=== PATIENT | male | born 1950 | race Caucasian/White ===

== ENCOUNTER 2017-05-02 15:30 | Emergency (ER) | payer MEDICARE, OTHER ==
[~2017-05-02] VITALS: Ht 167.6 cm; Wt 101.6 kg
[~2017-05-02 15:30] MED LIST: AMLO10 PO; ASPI81CH PO; ASPI81EC PO; ATOR20 PO; CARV6.25 PO; CEPACOL SORE T1 EACH MM; CYCL10 PO; Colace250 MG PO; DOCU100 PO; HYDACE25S PR; LISI20 PO; LISI5 PO; LISINOPRIL; LORPSEER24 PO; Norco 5-325 Ta1 EACH PO; OMEP20ER PO; OXYACE5T PO; OXYACE7.5T PO; Percocet 5-3251 EACH PO; Prilosec Otc20 MG PO; RANI150; SENN187 PO; VITAMIN D-32000 UNIT PO
[2017-05-02 16:20] LABS: BASOPHILS ABSOLUTE AUTO 0.05 K/mm3 (0.00-0.23); BASOPHILS PERCENT AUTO 1 % (0-2); EOSINOPHILS PERCENT AUTO 1 % (0-6); Hematocrit 44.9 % (37.0-53.0); Hemoglobin 15.1 g/dL (13.5-17.5); IMMATURE GRAN ABSOLUTE AUTO 0.03 K/mm3 (0.00-0.10); IMMATURE GRAN PERCENT AUTO 0 % (0-1); LYMPHOCYTES ABSOLUTE AUTO 1.85 K/mm3 (0.84-5.20); LYMPHOCYTES PERCENT AUTO 27 % (21-46); MONOCYTES ABSOLUTE AUTO 0.67 K/mm3 (0.16-1.47); MONOCYTES PERCENT AUTO 10 % (4-13); Mean Corpuscular HGB 31.9 pg (26.0-34.0); Mean Corpuscular HGB Conc 33.6 g/dL (31.5-36.5); Mean Corpuscular Volume 95 fL (80-100); Mean Platelet Volume 9.4 fL (9.1-12.4); NEUTROPHILS ABSOLUTE AUTO 4.23 K/mm3 (1.96-9.15); NEUTROPHILS PERCENT AUTO 61 % (41-73); Platelet Count 266 K/mm3 (150-400); RDW Coefficient Variation 12.3 % (11.7-14.2); RDW Standard Deviation 43.1 fL (35.1-46.3); Red Blood Cell Count 4.74 M/mm3 (4.30-5.90); White Blood Cell Count 6.93 K/mm3 (4.00-11.30)
[2017-05-02 16:39] LABS: Alanine Aminotransfer (ALT/SGP 50 U/L (12-78); Albumin/Globulin Ratio 1.1 (0.8-1.8); Alk Phos 87 U/L (50-136); Anion Gap 6 mmol/L (6-16); Aspartate Aminotrans (AST/SGOT 30 U/L (12-37); Bilirubin, Total 0.6 mg/dL (0.1-1.0); Blood Urea Nitrogen 17 mg/dL (8-24); Bun/Creatinine Ratio 14.9 (12.0-20.0); CO2, Blood 24 mmol/L (21-32); Calcium, Blood 8.4 mg/dL (8.5-10.1); Chloride, Blood 108 mmol/L (98-108); Creatinine, Blood 1.14 mg/dL (0.60-1.20); Globulin, Blood 3.5 g/dL (2.2-4.0); Glomerular Filtration Rate >60 (60-); Glucose, Blood 124 mg/dL (70-99); Potassium, Blood 3.6 mmol/L (3.5-5.5); Sodium, Blood 138 mmol/L (136-145); Total Protein, Blood 7.5 g/dL (6.4-8.2)
[2017-05-02] MEDS ORDERED: Cortisporin Ear10 M1 LEFTEAR (18:18)
[2017-05-02] MEDS ORDERED: Amoxicillin875 MG PO (20:13)
[2017-05-02] MEDS ORDERED: BONINE25 MG PO (20:13)
== END 2017-05-02 21:02 | disposition home or self-care (01) ==
LOC: ER 15:30
PROVIDERS: Emergency Medicine
DX: H60.92 Unspecified otitis externa, left ear (principal); H66.92 Otitis media, unspecified, left ear; H81.12 Benign paroxysmal vertigo, left ear; I10 Essential (primary) hypertension; K21.9 Gastro-esophageal reflux disease without esophagitis; Z79.899 Other long term (current) drug therapy; Z79.82 Long term (current) use of aspirin; Z90.49 Acquired absence of other specified parts of digestive tract
CPT/HCPCS: 36415; 71046; 80053; 85025; 93005; 93010; 96360; 96361; 99284; J7030

== ENCOUNTER 2017-05-08 08:37 | Emergency (ER) | payer MEDICARE, OTHER ==
[~2017-05-08] VITALS: Ht 165.1 cm; Wt 101.6 kg
[~2017-05-08 08:37] MED LIST changes: +Amoxicillin875 MG PO; +BONINE25 MG PO; +Cortisporin Ear10 M1 LEFTEAR
[2017-05-08 09:52] LABS: BASOPHILS ABSOLUTE AUTO 0.02 K/mm3 (0.00-0.23); BASOPHILS PERCENT AUTO 0 % (0-2); EOSINOPHILS ABSOLUTE AUTO 0.07 K/mm3 (0.00-0.68); EOSINOPHILS PERCENT AUTO 1 % (0-6); Hematocrit 41.8 % (37.0-53.0); Hemoglobin 14.2 g/dL (13.5-17.5); IMMATURE GRAN ABSOLUTE AUTO 0.02 K/mm3 (0.00-0.10); IMMATURE GRAN PERCENT AUTO 0 % (0-1); LYMPHOCYTES ABSOLUTE AUTO 0.52 K/mm3 (0.84-5.20); LYMPHOCYTES PERCENT AUTO 11 % (21-46); MONOCYTES ABSOLUTE AUTO 0.71 K/mm3 (0.16-1.47); MONOCYTES PERCENT AUTO 15 % (4-13); Mean Corpuscular HGB 31.6 pg (26.0-34.0); Mean Corpuscular Volume 93 fL (80-100); Mean Platelet Volume 9.3 fL (9.1-12.4); NEUTROPHILS ABSOLUTE AUTO 3.55 K/mm3 (1.96-9.15); NEUTROPHILS PERCENT AUTO 73 % (41-73); Platelet Count 206 K/mm3 (150-400); RDW Coefficient Variation 12.4 % (11.7-14.2); RDW Standard Deviation 43.1 fL (35.1-46.3); White Blood Cell Count 4.89 K/mm3 (4.00-11.30)
[2017-05-08 10:24] LABS: Alanine Aminotransfer (ALT/SGP 45 U/L (12-78); Albumin, Blood 3.8 g/dL (3.4-5.0); Albumin/Globulin Ratio 1.2 (0.8-1.8); Alk Phos 81 U/L (50-136); Anion Gap 6 mmol/L (6-16); Aspartate Aminotrans (AST/SGOT 28 U/L (12-37); Bilirubin, Total 0.7 mg/dL (0.1-1.0); Blood Urea Nitrogen 14 mg/dL (8-24); Bun/Creatinine Ratio 11.4 (12.0-20.0); CO2, Blood 26 mmol/L (21-32); Calcium, Blood 8.3 mg/dL (8.5-10.1); Chloride, Blood 107 mmol/L (98-108); Creatinine, Blood 1.23 mg/dL (0.60-1.20); Globulin, Blood 3.1 g/dL (2.2-4.0); Glomerular Filtration Rate >60 (60-); Glucose, Blood 130 mg/dL (70-99); Sodium, Blood 139 mmol/L (136-145); Total Protein, Blood 6.9 g/dL (6.4-8.2); Troponin I <0.015 ng/mL (0.000-0.040)
[2017-05-08] MEDS ORDERED: BENZ100A PO (11:06)
== END 2017-05-08 11:15 | disposition home or self-care (01) ==
LOC: ER 08:37
PROVIDERS: Emergency Medicine
DX: J06.9 Acute upper respiratory infection, unspecified (principal); R06.00 Dyspnea, unspecified; I10 Essential (primary) hypertension; Z79.899 Other long term (current) drug therapy; Z79.82 Long term (current) use of aspirin; Z79.2 Long term (current) use of antibiotics
CPT/HCPCS: 36415; 71046; 80053; 83880; 84484; 85025; 93005; 93010; 96361; 96374; 99284; J2405; J7030

== ENCOUNTER 2017-05-11 17:24 | Observation (INO) | payer MEDICARE, OTHER ==
[~2017-05-11] VITALS: Ht 172.7 cm; Wt 93.8 kg
[~2017-05-11 17:24] MED LIST changes: +BENZ100A PO
[2017-05-11 18:15] LABS: Calcium, Ionized (POC) 1.13 mmol/L (1.10-1.46); Chloride (POC) 104 mmol/L (98-108); Creatinine (POC) 1.8 mg/dL (0.8-1.3); Glucose (ISTAT POC) 140 mg/dL (70-99); Hemoglobin (POC) 15.6 g/dL (13.5-17.5); Potassium (POC) 3.1 mmol/L (3.5-5.5); Sodium (POC) 141 mmol/L (135-148); Total CO2 (POC) 23 mmol/L (21-32)
[2017-05-11 18:17] LABS: BASOPHILS ABSOLUTE AUTO 0.01 K/mm3 (0.00-0.23); BASOPHILS PERCENT AUTO 0 % (0-2); EOSINOPHILS ABSOLUTE AUTO 0.02 K/mm3 (0.00-0.68); EOSINOPHILS PERCENT AUTO 1 % (0-6); Hematocrit 44.9 % (37.0-53.0); Hemoglobin 15.5 g/dL (13.5-17.5); IMMATURE GRAN ABSOLUTE AUTO 0.01 K/mm3 (0.00-0.10); IMMATURE GRAN PERCENT AUTO 0 % (0-1); LYMPHOCYTES PERCENT AUTO 29 % (21-46); MONOCYTES ABSOLUTE AUTO 0.34 K/mm3 (0.16-1.47); MONOCYTES PERCENT AUTO 10 % (4-13); Mean Corpuscular HGB 31.8 pg (26.0-34.0); Mean Corpuscular HGB Conc 34.5 g/dL (31.5-36.5); Mean Corpuscular Volume 92 fL (80-100); Mean Platelet Volume 9.4 fL (9.1-12.4); NEUTROPHILS ABSOLUTE AUTO 2.13 K/mm3 (1.96-9.15); NEUTROPHILS PERCENT AUTO 61 % (41-73); Platelet Count 244 K/mm3 (150-400); RDW Coefficient Variation 12.1 % (11.7-14.2); RDW Standard Deviation 41.3 fL (35.1-46.3); Red Blood Cell Count 4.87 M/mm3 (4.30-5.90); White Blood Cell Count 3.51 K/mm3 (4.00-11.30)
[2017-05-11 18:40] LABS: Alanine Aminotransfer (ALT/SGP 39 U/L (12-78); Albumin/Globulin Ratio 1.1 (0.8-1.8); Alk Phos 87 U/L (50-136); Anion Gap 11 mmol/L (6-16); Aspartate Aminotrans (AST/SGOT 33 U/L (12-37); Bilirubin, Total 0.5 mg/dL (0.1-1.0); Blood Urea Nitrogen 21 mg/dL (8-24); Bun/Creatinine Ratio 12.4 (12.0-20.0); CO2, Blood 23 mmol/L (21-32); Calcium, Blood 8.6 mg/dL (8.5-10.1); Chloride, Blood 105 mmol/L (98-108); Creatinine, Blood 1.69 mg/dL (0.60-1.20); Globulin, Blood 3.8 g/dL (2.2-4.0); Glomerular Filtration Rate 43 (60-); Glucose, Blood 137 mg/dL (70-99); Potassium, Blood 3.1 mmol/L (3.5-5.5); Sodium, Blood 139 mmol/L (136-145); Total Protein, Blood 7.8 g/dL (6.4-8.2); Troponin I <0.015 ng/mL (0.000-0.040)
[2017-05-11 18:56] LABS: Influenza A Negative (NEGATIVE); Influenza B Negative (NEGATIVE)
[2017-05-11] MEDS ORDERED: ATOR10 (21:47)
[2017-05-12 02:45] LABS: Albumin, Blood 3.6 g/dL (3.4-5.0); Anion Gap 10 mmol/L (6-16); Blood Urea Nitrogen 19 mg/dL (8-24); Bun/Creatinine Ratio 12.9 (12.0-20.0); CO2, Blood 26 mmol/L (21-32); Chloride, Blood 106 mmol/L (98-108); Creatinine, Blood 1.47 mg/dL (0.60-1.20); Glomerular Filtration Rate 51 (60-); Glucose, Blood 100 mg/dL (70-99); Phosphorus, Blood 2.3 mg/dL (2.5-4.9); Potassium, Blood 3.1 mmol/L (3.5-5.5); Sodium, Blood 142 mmol/L (136-145)
[2017-05-12 04:05] LABS: Source, Urine Clean Catch
[2017-05-12 04:12] LABS: Bilirubin, Urine Neg (Neg); Blood, Urine Neg (Neg); Glucose Qualitative, Urine Neg (Neg); Ketones, Urine Neg (Neg); Leukocyte Esterase, Urine 1+ (Neg); Nitrite, Urine Neg (Neg); Protein, Urine 2+ (Neg); Specific Gravity, Urine 1.025 (1.003-1.022); Urobilinogen, Urine NORM (Normal)
[2017-05-12 04:42] LABS: Appearance, Urine Clear (Clear); Color, Urine Yellow (P-Yellow)
[2017-05-12 04:43] LABS: Bacteria Mod /hpf; Red Blood Cells, Urine 0-2 /hpf (0-2); Squamous Epithelial Cells Few /hpf (Few)
[2017-05-12 04:44] LABS: Hyaline Casts 0-2 /lpf (0-2)
[2017-05-12] MEDS ORDERED: AMLO10 PO (12:08)
[2017-05-12] MEDS ORDERED: AUGMENTIN PO (12:13)
[2017-05-12] MEDS ORDERED: BENZ100A PO (12:13)
[2017-05-12] MEDS ORDERED: DEX (12:18)
[2017-05-12] MEDS ORDERED: ROBITUSSIN DM PO (12:23)
[2017-05-12] MEDS ORDERED: Flonase 0.05% N16 GM (12:23)
== END 2017-05-12 14:27 | disposition home or self-care (01) ==
LOC: ER 17:24 → PCU 17:25 → MEDS 17:25 → PCU 21:30
PROVIDERS: Emergency Medicine; Family Medicine; Physician Assistant
DX: R55 Syncope and collapse (principal); J06.9 Acute upper respiratory infection, unspecified; I10 Essential (primary) hypertension; N17.9 Acute kidney failure, unspecified; E87.6 Hypokalemia; E66.9 Obesity, unspecified; R19.7 Diarrhea, unspecified; I51.7 Cardiomegaly; I77.810 Thoracic aortic ectasia; K21.9 Gastro-esophageal reflux disease without esophagitis; Z79.899 Other long term (current) drug therapy
CPT/HCPCS: 36415; 71046; 80047; 80053; 80069; 81001; 83880; 84484; 85014; 85025; 87086; 87804; 93005; 93010; 93306; 93880; 96360; 96361; 99285; G0378; J3480; J7030

== ENCOUNTER 2017-08-26 17:48 | Inpatient (IN) | payer MEDICARE, OTHER ==
[~2017-08-26] VITALS: Ht 170.2 cm; Wt 103.5 kg
[~2017-08-26 17:48] MED LIST changes: +ATOR10; +AUGMENTIN PO; +DEX; +Flonase 0.05% N16 GM; +ROBITUSSIN DM PO
[2017-08-26 19:43] LABS: BASOPHILS ABSOLUTE AUTO 0.04 K/mm3 (0.00-0.23); BASOPHILS PERCENT AUTO 0 % (0-2); EOSINOPHILS ABSOLUTE AUTO 0.06 K/mm3 (0.00-0.68); EOSINOPHILS PERCENT AUTO 1 % (0-6); Hematocrit 50.4 % (37.0-53.0); Hemoglobin 17.6 g/dL (13.5-17.5); IMMATURE GRAN ABSOLUTE AUTO 0.05 K/mm3 (0.00-0.10); IMMATURE GRAN PERCENT AUTO 0 % (0-1); LYMPHOCYTES PERCENT AUTO 10 % (21-46); MONOCYTES PERCENT AUTO 6 % (4-13); Mean Corpuscular HGB 33.1 pg (26.0-34.0); Mean Corpuscular HGB Conc 34.9 g/dL (31.5-36.5); Mean Corpuscular Volume 95 fL (80-100); Mean Platelet Volume 9.5 fL (9.1-12.4); NEUTROPHILS ABSOLUTE AUTO 10.25 K/mm3 (1.96-9.15); NEUTROPHILS PERCENT AUTO 83 % (41-73); Platelet Count 333 K/mm3 (150-400); RDW Coefficient Variation 12.9 % (11.7-14.2); RDW Standard Deviation 44.8 fL (35.1-46.3); Red Blood Cell Count 5.32 M/mm3 (4.30-5.90)
[2017-08-26 20:02] LABS: Albumin, Blood 4.6 g/dL (3.4-5.0); Albumin/Globulin Ratio 1.2 (0.8-1.8); Bilirubin, Total 1.4 mg/dL (0.1-1.0); Bun/Creatinine Ratio 13.4 (12.0-20.0); Calcium, Blood 9.4 mg/dL (8.5-10.1); Creatinine, Blood 1.86 mg/dL (0.60-1.20); Globulin, Blood 3.8 g/dL (2.2-4.0); Total Protein, Blood 8.4 g/dL (6.4-8.2)
[2017-08-27 04:26] LABS: BASOPHILS ABSOLUTE AUTO 0.04 K/mm3 (0.00-0.23); BASOPHILS PERCENT AUTO 1 % (0-2); EOSINOPHILS ABSOLUTE AUTO 0.04 K/mm3 (0.00-0.68); EOSINOPHILS PERCENT AUTO 1 % (0-6); Hematocrit 42.6 % (37.0-53.0); Hemoglobin 14.4 g/dL (13.5-17.5); IMMATURE GRAN ABSOLUTE AUTO 0.02 K/mm3 (0.00-0.10); IMMATURE GRAN PERCENT AUTO 0 % (0-1); LYMPHOCYTES ABSOLUTE AUTO 1.35 K/mm3 (0.84-5.20); LYMPHOCYTES PERCENT AUTO 16 % (21-46); MONOCYTES ABSOLUTE AUTO 0.64 K/mm3 (0.16-1.47); MONOCYTES PERCENT AUTO 7 % (4-13); Mean Corpuscular HGB 32.9 pg (26.0-34.0); Mean Corpuscular HGB Conc 33.8 g/dL (31.5-36.5); Mean Corpuscular Volume 97 fL (80-100); Mean Platelet Volume 9.2 fL (9.1-12.4); NEUTROPHILS ABSOLUTE AUTO 6.54 K/mm3 (1.96-9.15); NEUTROPHILS PERCENT AUTO 76 % (41-73); Platelet Count 240 K/mm3 (150-400); RDW Standard Deviation 46.6 fL (35.1-46.3); Red Blood Cell Count 4.38 M/mm3 (4.30-5.90); White Blood Cell Count 8.63 K/mm3 (4.00-11.30)
[2017-08-27 04:47] LABS: Albumin, Blood 3.5 g/dL (3.4-5.0); Albumin/Globulin Ratio 1.2 (0.8-1.8); Bilirubin, Total 0.9 mg/dL (0.1-1.0); Creatinine, Blood 1.81 mg/dL (0.60-1.20); Globulin, Blood 2.9 g/dL (2.2-4.0)
[2017-08-27 04:59] LABS: Total Protein, Blood 6.4 g/dL (6.4-8.2)
== END 2017-08-28 11:28 | disposition home or self-care (01) | DRG 392 ==
LOC: ER 17:48 → MEDS 23:29 → ENPENDDIS 08-28 10:00 → MEDS 08-28 11:28
PROVIDERS: Emergency Medicine; Internal Medicine
DX: K52.9 Noninfective gastroenteritis and colitis, unspecified (principal); I12.9 Hypertensive chronic kidney disease with stage 1 through stage 4 chronic kidney disease, or unspecified chronic kidney disease; N18.2 Chronic kidney disease, stage 2 (mild); E78.5 Hyperlipidemia, unspecified; K21.9 Gastro-esophageal reflux disease without esophagitis
CPT/HCPCS: 36415; 74176; 74250; 80053; 83605; 85025; 96361; 96365; 96375; 96376; 99285; J0744; J1650; J2405; J3010; J7030

== ENCOUNTER 2017-11-10 06:57 | Inpatient (IN) | payer MEDICARE, OTHER ==
[~2017-11-10] VITALS: Ht 172.7 cm; Wt 99.5 kg
[2017-11-10] MEDS ORDERED: RANI150EL PO (07:22)
[2017-11-10 07:35] LABS: BASOPHILS ABSOLUTE AUTO 0.03 K/mm3 (0.00-0.23); BASOPHILS PERCENT AUTO 0 % (0-2); EOSINOPHILS ABSOLUTE AUTO 0.03 K/mm3 (0.00-0.68); EOSINOPHILS PERCENT AUTO 0 % (0-6); Hematocrit 51.3 % (37.0-53.0); Hemoglobin 17.2 g/dL (13.5-17.5); IMMATURE GRAN ABSOLUTE AUTO 0.02 K/mm3 (0.00-0.10); IMMATURE GRAN PERCENT AUTO 0 % (0-1); LYMPHOCYTES ABSOLUTE AUTO 1.12 K/mm3 (0.84-5.20); LYMPHOCYTES PERCENT AUTO 11 % (21-46); MONOCYTES ABSOLUTE AUTO 0.53 K/mm3 (0.16-1.47); MONOCYTES PERCENT AUTO 5 % (4-13); Mean Corpuscular HGB Conc 33.5 g/dL (31.5-36.5); Mean Corpuscular Volume 96 fL (80-100); Mean Platelet Volume 9.3 fL (9.1-12.4); NEUTROPHILS ABSOLUTE AUTO 8.28 K/mm3 (1.96-9.15); NEUTROPHILS PERCENT AUTO 83 % (41-73); Platelet Count 339 K/mm3 (150-400); RDW Coefficient Variation 12.4 % (11.7-14.2); RDW Standard Deviation 43.7 fL (35.1-46.3); Red Blood Cell Count 5.37 M/mm3 (4.30-5.90); White Blood Cell Count 10.01 K/mm3 (4.00-11.30)
[2017-11-10 07:55] LABS: Albumin, Blood 4.9 g/dL (3.4-5.0); Albumin/Globulin Ratio 1.3 (0.8-1.8); Calcium, Blood 9.3 mg/dL (8.5-10.1); Creatinine, Blood 2.64 mg/dL (0.60-1.20); Globulin, Blood 3.8 g/dL (2.2-4.0); Potassium, Blood 4.5 mmol/L (3.5-5.5); Total Protein, Blood 8.7 g/dL (6.4-8.2)
[2017-11-10 08:26] LABS: Source, Urine Clean Catch
[2017-11-10 08:50] LABS: Blood, Urine 1+ (Neg); Glucose Qualitative, Urine Neg (Neg); Ketones, Urine 1+ (Neg); Leukocyte Esterase, Urine 1+ (Neg); Nitrite, Urine Neg (Neg); Protein, Urine 3+ (Neg); Urobilinogen, Urine 1+ (Normal)
[2017-11-10 09:09] LABS: Bilirubin, Urine 2+ (Neg)
[2017-11-10 09:13] LABS: Appearance, Urine Hazy (Clear); Bacteria Few /hpf; Color, Urine Amber (P-Yellow); Mucus Mod (0-Heavy); Red Blood Cells, Urine 0-2 /hpf (0-2); Squamous Epithelial Cells Few /hpf (Few)
[2017-11-10 12:54] LABS: Hematocrit 48.7 % (37.0-53.0); Hemoglobin 16.7 g/dL (13.5-17.5); Mean Corpuscular HGB 33.2 pg (26.0-34.0); Mean Corpuscular HGB Conc 34.3 g/dL (31.5-36.5); Mean Corpuscular Volume 97 fL (80-100); Mean Platelet Volume 9.1 fL (9.1-12.4); Platelet Count 301 K/mm3 (150-400); RDW Coefficient Variation 12.5 % (11.7-14.2); RDW Standard Deviation 44.5 fL (35.1-46.3); Red Blood Cell Count 5.03 M/mm3 (4.30-5.90); White Blood Cell Count 11.23 K/mm3 (4.00-11.30)
[2017-11-11 03:53] LABS: BASOPHILS ABSOLUTE AUTO 0.04 K/mm3 (0.00-0.23); BASOPHILS PERCENT AUTO 0 % (0-2); EOSINOPHILS ABSOLUTE AUTO 0.06 K/mm3 (0.00-0.68); EOSINOPHILS PERCENT AUTO 1 % (0-6); Hematocrit 41.9 % (37.0-53.0); Hemoglobin 13.9 g/dL (13.5-17.5); IMMATURE GRAN ABSOLUTE AUTO 0.02 K/mm3 (0.00-0.10); IMMATURE GRAN PERCENT AUTO 0 % (0-1); LYMPHOCYTES ABSOLUTE AUTO 1.34 K/mm3 (0.84-5.20); LYMPHOCYTES PERCENT AUTO 15 % (21-46); MONOCYTES ABSOLUTE AUTO 0.71 K/mm3 (0.16-1.47); MONOCYTES PERCENT AUTO 8 % (4-13); Mean Corpuscular HGB 32.7 pg (26.0-34.0); Mean Corpuscular HGB Conc 33.2 g/dL (31.5-36.5); Mean Corpuscular Volume 99 fL (80-100); NEUTROPHILS ABSOLUTE AUTO 6.85 K/mm3 (1.96-9.15); NEUTROPHILS PERCENT AUTO 76 % (41-73); Platelet Count 230 K/mm3 (150-400); RDW Coefficient Variation 12.5 % (11.7-14.2); RDW Standard Deviation 45.1 fL (35.1-46.3); Red Blood Cell Count 4.25 M/mm3 (4.30-5.90); White Blood Cell Count 9.02 K/mm3 (4.00-11.30)
[2017-11-11 04:16] LABS: Albumin, Blood 3.6 g/dL (3.4-5.0); Bun/Creatinine Ratio 17.5 (12.0-20.0); Calcium, Blood 7.6 mg/dL (8.5-10.1); Creatinine, Blood 1.71 mg/dL (0.60-1.20); Magnesium, Blood 1.9 mg/dL (1.6-2.4); Phosphorus, Blood 2.4 mg/dL (2.5-4.9); Potassium, Blood 4.4 mmol/L (3.5-5.5)
[2017-11-11 04:18] LABS: Albumin/Globulin Ratio 1.2 (0.8-1.8); Globulin, Blood 2.9 g/dL (2.2-4.0)
[2017-11-11 04:46] LABS: Total Protein, Blood 6.5 g/dL (6.4-8.2)
[2017-11-12 05:18] LABS: Hemoglobin 14.5 g/dL (13.5-17.5); Mean Corpuscular HGB 32.8 pg (26.0-34.0); Mean Corpuscular HGB Conc 33.7 g/dL (31.5-36.5); Mean Corpuscular Volume 97 fL (80-100); Mean Platelet Volume 9.3 fL (9.1-12.4); Platelet Count 240 K/mm3 (150-400); RDW Coefficient Variation 11.9 % (11.7-14.2); Red Blood Cell Count 4.42 M/mm3 (4.30-5.90); White Blood Cell Count 8.44 K/mm3 (4.00-11.30)
[2017-11-12 05:37] LABS: Bun/Creatinine Ratio 13.4 (12.0-20.0); Calcium, Blood 8.2 mg/dL (8.5-10.1); Creatinine, Blood 1.34 mg/dL (0.60-1.20); Potassium, Blood 4.1 mmol/L (3.5-5.5)
[2017-11-13 05:14] LABS: Hematocrit 42.3 % (37.0-53.0); Hemoglobin 14.8 g/dL (13.5-17.5); Mean Corpuscular HGB 32.5 pg (26.0-34.0); RDW Coefficient Variation 11.9 % (11.7-14.2); RDW Standard Deviation 40.6 fL (35.1-46.3); Red Blood Cell Count 4.56 M/mm3 (4.30-5.90); White Blood Cell Count 7.82 K/mm3 (4.00-11.30)
[2017-11-13 05:18] LABS: Mean Corpuscular Volume 93 fL (80-100); Mean Platelet Volume 10.5 fL (9.1-12.4); Platelet Count 156 K/mm3 (150-400)
[2017-11-13 05:25] LABS: Anion Gap 10 mmol/L (6-16); Blood Urea Nitrogen 14 mg/dL (8-24); Bun/Creatinine Ratio 12.6 (12.0-20.0); CO2, Blood 25 mmol/L (21-32); Calcium, Blood 8.3 mg/dL (8.5-10.1); Chloride, Blood 102 mmol/L (98-108); Creatinine, Blood 1.11 mg/dL (0.60-1.20); Glomerular Filtration Rate >60 (60-); Glucose, Blood 84 mg/dL (70-99); Potassium, Blood 4.3 mmol/L (3.5-5.5); Sodium, Blood 137 mmol/L (136-145)
[2017-11-14 05:38] LABS: Mean Corpuscular HGB 32.5 pg (26.0-34.0); Mean Corpuscular HGB Conc 34.9 g/dL (31.5-36.5); Mean Corpuscular Volume 93 fL (80-100); Mean Platelet Volume 10.1 fL (9.1-12.4); Platelet Count 257 K/mm3 (150-400); RDW Coefficient Variation 11.9 % (11.7-14.2); RDW Standard Deviation 41.1 fL (35.1-46.3); Red Blood Cell Count 4.61 M/mm3 (4.30-5.90); White Blood Cell Count 7.86 K/mm3 (4.00-11.30)
[2017-11-14 05:58] LABS: Anion Gap 11 mmol/L (6-16); Blood Urea Nitrogen 16 mg/dL (8-24); Bun/Creatinine Ratio 12.7 (12.0-20.0); CO2, Blood 27 mmol/L (21-32); Calcium, Blood 8.9 mg/dL (8.5-10.1); Chloride, Blood 101 mmol/L (98-108); Creatinine, Blood 1.26 mg/dL (0.60-1.20); Glomerular Filtration Rate >60 (60-); Glucose, Blood 102 mg/dL (70-99); Potassium, Blood 3.5 mmol/L (3.5-5.5); Sodium, Blood 139 mmol/L (136-145)
[2017-11-14] MEDS ORDERED: METO5A PO (08:35)
[2017-11-14] MEDS ORDERED: ONDA4ODT SL (08:36)
[2017-11-14] MEDS ORDERED: PANT20 PO (08:37)
== END 2017-11-14 13:39 | disposition home or self-care (01) | DRG 683 ==
LOC: ER 06:57 → SURS 06:58
PROVIDERS: Emergency Medicine; Family Medicine
DX: N17.9 Acute kidney failure, unspecified (principal); K56.609 Unspecified intestinal obstruction, unspecified as to partial versus complete obstruction; E66.3 Overweight; Z68.34 Body mass index [BMI] 34.0-34.9, adult; K21.9 Gastro-esophageal reflux disease without esophagitis; N18.3 Chronic kidney disease, stage 3 (moderate); K76.0 Fatty (change of) liver, not elsewhere classified; E86.0 Dehydration; I12.9 Hypertensive chronic kidney disease with stage 1 through stage 4 chronic kidney disease, or unspecified chronic kidney disease; D75.1 Secondary polycythemia; E83.51 Hypocalcemia; R51 Headache; E78.5 Hyperlipidemia, unspecified
CPT/HCPCS: 36415; 74018; 74176; 74250; 80048; 80053; 81001; 83690; 83735; 84100; 85025; 85027; 86850; 86900; 86901; 87077; 87086; 87186; 93005; 93010; 96361; 96374; 96375; 96376; 99285-25; C9113; J0360; J0610; J1170; J1200; J2405; J2550; J2765; J3010; J7030; J7120; Q9963

== ENCOUNTER 2018-06-02 07:19 | Inpatient (IN) | payer MEDICARE ==
[~2018-06-02] VITALS: Ht 170.2 cm; Wt 105.2 kg
[~2018-06-02 07:19] MED LIST changes: +METO5A PO; +ONDA4ODT SL; +PANT20 PO; +RANI150EL PO
[2018-06-02 08:53] LABS: BASOPHILS ABSOLUTE AUTO 0.05 K/mm3 (0.00-0.23); BASOPHILS PERCENT AUTO 1 % (0-2); EOSINOPHILS ABSOLUTE AUTO 0.07 K/mm3 (0.00-0.68); EOSINOPHILS PERCENT AUTO 1 % (0-6); Hematocrit 53.4 % (37.0-53.0); IMMATURE GRAN ABSOLUTE AUTO 0.04 K/mm3 (0.00-0.10); IMMATURE GRAN PERCENT AUTO 0 % (0-1); LYMPHOCYTES ABSOLUTE AUTO 1.22 K/mm3 (0.84-5.20); LYMPHOCYTES PERCENT AUTO 13 % (21-46); MONOCYTES ABSOLUTE AUTO 0.56 K/mm3 (0.16-1.47); MONOCYTES PERCENT AUTO 6 % (4-13); Mean Corpuscular HGB Conc 33.7 g/dL (31.5-36.5); Mean Corpuscular Volume 95 fL (80-100); Mean Platelet Volume 9.1 fL (9.1-12.4); NEUTROPHILS ABSOLUTE AUTO 7.17 K/mm3 (1.96-9.15); NEUTROPHILS PERCENT AUTO 79 % (41-73); Platelet Count 353 K/mm3 (150-400); RDW Coefficient Variation 12.6 % (11.7-14.2); Red Blood Cell Count 5.63 M/mm3 (4.30-5.90); White Blood Cell Count 9.11 K/mm3 (4.00-11.30)
[2018-06-02 09:18] LABS: Albumin, Blood 4.7 g/dL (3.4-5.0); Creatinine, Blood 1.5 mg/dL (0.60-1.20); Globulin, Blood 3.8 g/dL (2.2-4.0); Potassium, Blood 4.9 mmol/L (3.5-5.5); Total Protein, Blood 8.5 g/dL (6.4-8.2)
[2018-06-02 09:19] LABS: Albumin/Globulin Ratio 1.2 (0.8-1.8); Bilirubin, Total 0.9 mg/dL (0.1-1.0)
[2018-06-02] MEDS ORDERED: RANI150EL (10:23)
[2018-06-02] MEDS ORDERED: MIRALAX17 GM PO (14:01)
[2018-06-02 19:32] LABS: Source, Urine Clean Catch
[2018-06-02 19:35] LABS: Appearance, Urine Clear (Clear); Bilirubin, Urine Neg (Neg); Blood, Urine Neg (Neg); Color, Urine Amber (P-Yellow); Glucose Qualitative, Urine Neg (Neg); Ketones, Urine 1+ (Neg); Leukocyte Esterase, Urine 1+ (Neg); Nitrite, Urine Neg (Neg); Protein, Urine 3+ (Neg); Specific Gravity, Urine 1.025 (1.003-1.022); Urobilinogen, Urine NORM (Normal)
[2018-06-02 19:49] LABS: Squamous Epithelial Cells Not Seen /hpf (Few)
[2018-06-02 19:50] LABS: Amorphous Light (0-Heavy); Bacteria Few /hpf
[2018-06-02 19:51] LABS: Red Blood Cells, Urine Not Seen /hpf (0-2)
[2018-06-02 19:52] LABS: Calcium Oxalate Crystals Many /hpf
--- NOTE | 2018-06-03 04:00 | NUR ---
AT ABOUT 0020 PT COMPLAINING OF INCREASED ACID REFLUX AND BURNING PAIN AT CHEST FROM ACID. DR. TOUSSAINT NOTIFIED AND PT'S AM PROTONIX GIVEN AT 0149. PT CONTINUED TO COMPLAIN OF REFLUX, NGT IRRIGATED WITH AIR AT ABOUT 0230 WITHOUT ANY SUCCESS IN CLEARING A BLOCKAGE. NGT THEN ADVANCED CAUSING GASTIC CONTENTS TO DRAIN. ABOUT 200ML DRAINED WITH SUCTION, TUBE RETAPED TO NARE . PT NOW REPORTS "FEELING MUCH BETTER" AND ABLE TO SLEEP. WILL CTM PT STATUS.
--- NOTE | 2018-06-03 04:39 | NUR ---
SUMMARY: SEE PREVIOUS NOTE. PT DOING WELL THIS AM. UP TO BATHROOM X2 AND BM X1. NGT TO INTERMITTANT SUCTION, ABOUT 200ML OUT THIS SHIFT. PT BP HAS BEEN HIGH BEFORE GIVING IV LOPRESSOR, AND THEN IS STABLE. NO ACUTE CONCERNS AT THIS TIME WILL REPORT TO DAY RN.
[2018-06-03 05:09] LABS: Hematocrit 47.5 % (37.0-53.0); Hemoglobin 15.7 g/dL (13.5-17.5); Mean Corpuscular HGB 31.9 pg (26.0-34.0); Mean Corpuscular HGB Conc 33.1 g/dL (31.5-36.5); Mean Corpuscular Volume 97 fL (80-100); Platelet Count 266 K/mm3 (150-400); RDW Coefficient Variation 12.8 % (11.7-14.2); RDW Standard Deviation 45.7 fL (35.1-46.3); Red Blood Cell Count 4.92 M/mm3 (4.30-5.90); White Blood Cell Count 10.91 K/mm3 (4.00-11.30)
[2018-06-03 05:24] LABS: Bun/Creatinine Ratio 10.1 (12.0-20.0); Calcium, Blood 8.6 mg/dL (8.5-10.1); Creatinine, Blood 1.48 mg/dL (0.60-1.20); Potassium, Blood 4.2 mmol/L (3.5-5.5)
--- NOTE | 2018-06-03 18:31 | NUR ---
SHIFT SUMMARY PT REPORTS PAIN IMPROVED ALTHOUGH ABD STILL DISTENDED AND FIRM. NGT TUBE HAS MINIMAL OUTPUT. DENIES N/V. MARIO HAS IMPROVED.
--- NOTE | 2018-06-04 06:16 | NUR ---
SUMMARY PT DECIDED TO PULL OUT HIS OWN NG TUBE THIS AM. PT STATED "I DON'T NEED IT" "IT'S NOT DOING ANYTHING FOR ME". NG TIP INTACT. 350 ML DARK BROWN DRAINAGE NOTED IN SUCTION CANISTER. PT DENIES NAUSEA/PAIN AT THIS TIME. PT WAS SENT DOWN TO XRAY THIS AM. HE WISHES TO SPEAK WITH THE PHYSICIAN AND HAVE XRAY RESULTS BEFORE HAVING ANOTHER TUBE PLACED. PT WAS EDUCATED ON THE PURPOSE OF THE NG TUBE, HE STATES UNDERSTANDING. PT IS A&O X4. CALL TERESA IN [facility] AND REPORT TO DAY RN.
--- NOTE | 2018-06-04 14:18 | NUR ---
PT ARRIVED TO THE ROOM A 1415. PT ALERT AND ORIENTED AT THIS TIME. SOB WITH ACTIVITY. WILL CONTINUE TO MONITOR.
--- NOTE | 2018-06-05 05:33 | NUR ---
PT DID WELL DURING NIGHT. STATES PAIN AND NAUSEA HAS IMPROVED. PT HAS BEEN PASSING FLATUS ALONG WITH LIQUID STOOL T/O THE NIGHT. PT REMAINS NPO WITH IVF INFUSING. WAS MEDICATED ONCE FOR PAIN AND NAUSEA. PT IS INDEPENDENT IN ROOM. CALL LIGHT IN REACH.
--- NOTE | 2018-06-05 14:25 | NUR ---
discharge iv dc'd from left chest (peripheral IV cannula), site wnl. dietary esucation completed. discharge instructions reviewed with patient and questions answered. patient discharged to home with her son
--- NOTE | 2018-06-05 17:46 | NUR ---
SUMMARY PATIENT HAS SLEPT MUCH OF DAY. AMBULATED INDEPENDENTLY IN ROOM AND HALLS. HAD 1 LIQUID BROWN BM. PATIENT REPORTS SOME CRAMPING ABD PAIN AFTER CLEAR LIQUID DINNER. ENCOURAGED PATIENT TO TAKE CLEAR LIQUIDS SLPWLY BUT PATIENT CONSUMED 730 ML IN UNDER 5 MIN.
--- NOTE | 2018-06-06 05:59 | NUR ---
SUMMARY: NO ACUTE CHANGE THIS SHIFT. PT SLEPT WELL. ABD CONTINUES TO BE DISTENDED, NO REPORT OF BM TONIGHT, PT IS PASSING GAS, TOLERATING CLEAR LIQ DIET. TELE WNL, HR IN THE 50'S AT 2305, IV LOPRESSOR HELD. PT IS INDEPENDENT IN ROOM. NO SAFETY CONCERNS AT THIS TIME
--- NOTE | 2018-06-06 17:44 | NUR ---
SUMMARY PATIENT HAS DENIED PAIN OR NAUSEA, STATES ABDOMEN FEELS FULL AT TIMES AND THIS IS RELIEVED WHEN HE HAS A BM. PATIENT AMBULATING IN ROOM AND HALLS, STEADY GAIT
--- NOTE | 2018-06-07 05:02 | NUR ---
SUMMARY: PT CONTINUES TO HAVE HIGH BP TONIGHT. MARTA DAMON, NOTIFIED AND PT RESTARTED ON HOME DOSE OF COREG. BP BETTER THIS AM. PT HAS BEEN ASYMPTOMATIC ALL SHIFT AND SLEEPING WELL. NO REPORT OF BM, PT REPORTS GAS BUT STILL FEELS DISTENDED. TOLERATING CLEAR LIQ DIET. PT HAS DENIED N/V, PAIN. INDEPEDENT IN ROOM, NO SAFETY CONCERNS AT THIS TIME.
[2018-06-07 06:20] LABS: Albumin, Blood 3.3 g/dL (3.4-5.0); Anion Gap 7 mmol/L (6-16); Blood Urea Nitrogen 10 mg/dL (8-24); Bun/Creatinine Ratio 8.3 (12.0-20.0); CO2, Blood 26 mmol/L (21-32); Calcium, Blood 8.3 mg/dL (8.5-10.1); Chloride, Blood 106 mmol/L (98-108); Glomerular Filtration Rate >60 (60-); Glucose, Blood 130 mg/dL (70-99); Potassium, Blood 3.5 mmol/L (3.5-5.5); Sodium, Blood 139 mmol/L (136-145)
--- NOTE | 2018-06-07 18:03 | NUR ---
SHIFT SUMMARY PT EATING AND DRINKING. PT VOIDING AND HAVING BM'S. PT TOLERATING REGULAR DIET. PT UP IND, BEEN ASSISTED WITH ADL'S PRN.
--- NOTE | 2018-06-08 06:30 | NUR ---
SUMMARY: NO CHANGE TONIGHT. VSS, TELE WNL. PT TOLERATING REGULAR DIET, DENIES N/V, PAIN. INDEPENDENT. PLAN IS DC TODAY.
[2018-06-08] MEDS ORDERED: Zantac150 MG PO (09:57)
--- NOTE | 2018-06-08 12:19 | NUR ---
DISCHARGE PT HAS TOLERATED DIET WELL. NO N/V. DENIES ABD PAIN POST MEALS. PT DECLINES W/C OUT AND CHOOSES TO AMBULATE WITH FAMILY.
== END 2018-06-08 12:21 | disposition home or self-care (01) | DRG 390 ==
LOC: ER 07:19 → ERHOLD 07:20 → SURS 13:27
PROVIDERS: Physician Assistant; ADMIT Internal Medicine
PROC: 0D9670Z Drainage of Stomach with Drainage Device, Via Natural or Artificial Opening (ICD-10-PCS; principal; 2018-06-02)
DX: K56.51 Intestinal adhesions [bands], with partial obstruction (principal); K21.9 Gastro-esophageal reflux disease without esophagitis; E66.9 Obesity, unspecified; G47.33 Obstructive sleep apnea (adult) (pediatric); D10.1 Benign neoplasm of tongue; N18.3 Chronic kidney disease, stage 3 (moderate); I12.9 Hypertensive chronic kidney disease with stage 1 through stage 4 chronic kidney disease, or unspecified chronic kidney disease; E83.39 Other disorders of phosphorus metabolism; Z79.82 Long term (current) use of aspirin; Z79.899 Other long term (current) drug therapy
CPT/HCPCS: 36415; 74019; 74176; 74250; 80048; 80053; 80069; 81001; 83690; 85025; 85027; 87086; 93005; 93010; 96374; 96375; 96376; 99285-25; C9113; J0360; J1170; J1650; J2405; J2765; J7042; J7120

== ENCOUNTER 2018-07-14 06:04 | Inpatient (IN) | payer MEDICARE ==
[~2018-07-14] VITALS: Ht 170.2 cm; Wt 102.0 kg
[~2018-07-14 06:04] MED LIST changes: +MIRALAX17 GM PO; +RANI150EL; +Zantac150 MG PO
[2018-07-14 07:15] LABS: BASOPHILS ABSOLUTE AUTO 0.05 K/mm3 (0.00-0.23); BASOPHILS PERCENT AUTO 1 % (0-2); EOSINOPHILS ABSOLUTE AUTO 0.08 K/mm3 (0.00-0.68); EOSINOPHILS PERCENT AUTO 1 % (0-6); Hematocrit 51.8 % (37.0-53.0); IMMATURE GRAN ABSOLUTE AUTO 0.03 K/mm3 (0.00-0.10); IMMATURE GRAN PERCENT AUTO 0 % (0-1); LYMPHOCYTES ABSOLUTE AUTO 1.19 K/mm3 (0.84-5.20); LYMPHOCYTES PERCENT AUTO 12 % (21-46); MONOCYTES ABSOLUTE AUTO 0.59 K/mm3 (0.16-1.47); MONOCYTES PERCENT AUTO 6 % (4-13); Mean Corpuscular HGB Conc 34.7 g/dL (31.5-36.5); Mean Corpuscular Volume 95 fL (80-100); NEUTROPHILS PERCENT AUTO 81 % (41-73); Platelet Count 309 K/mm3 (150-400); RDW Coefficient Variation 12.7 % (11.7-14.2); RDW Standard Deviation 44.3 fL (35.1-46.3); Red Blood Cell Count 5.46 M/mm3 (4.30-5.90); White Blood Cell Count 10.04 K/mm3 (4.00-11.30)
[2018-07-14 07:19] LABS: Albumin, Blood 4.5 g/dL (3.4-5.0); Albumin/Globulin Ratio 1.2 (0.8-1.8); Bilirubin, Total 1.5 mg/dL (0.1-1.0); Bun/Creatinine Ratio 14.9 (12.0-20.0); Calcium, Blood 9.6 mg/dL (8.5-10.1); Creatinine, Blood 1.61 mg/dL (0.60-1.20); Globulin, Blood 3.8 g/dL (2.2-4.0); Potassium, Blood 4.4 mmol/L (3.5-5.5); Total Protein, Blood 8.3 g/dL (6.4-8.2)
--- NOTE | 2018-07-14 15:33 | NUR ---
RECIEVED CONSENT FROM PATIENT TO ASSIST IN PROVIDING CARE ON 12/15/18 FROM 3089 TO 1200. CC
--- NOTE | 2018-07-14 16:41 | NUR ---
PT NEW ADMIT THIS SHIFT FOR SMALL BOWEL OBSTRUCTION. NG TUBE PLACED IN ER. NG TUBE NOT DRAINING STREET CAR INSPECTOR AND PRIMARY RN IN ROOM TO ASSESS. TELEPHONE ORDERS TO LEAVE OUT AT THIS TIME. PATIENTS PAIN MANAGED WITH PRN DILAUDID. PT COMPLAINING OF SOME NAUSEA. PT UP TO BATHROOM WITH AIRCRAFT MECHANIC ARMAMENT, PASSED SMALL GAS. PT AMBULATORY WITH ASSISTANCE. PLAN IS TO CONTINUE WITH BOWEL REST.
--- NOTE | 2018-07-14 16:42 | NUR ---
NG TUBE PT'S NG TUBE NOT DRAINING. TRIED FLUSHING AND REPOSITIONING-NG TUBE REMOVED. UNSUCESSFULY ATTEMPTED TO REPLACE NG TUBE IN R NARES-DALIA BLOOD PRESENT AND PT UNABLE TO TOLERATE. PT REFUSES TO HAVE NG ATTEMPTED IN L NARES HE STATES "THEY CAN NEVER GET IT". DR GAO NOTIFIED-ORDER TO LEAVE NG TUBE OUT AT THIS TIME.
--- NOTE | 2018-07-14 16:49 | NUR ---
ASSUMED CARE OF PATIENT AT THIS TIME. PT UP TO BATHROOM TO HAVE A SMALL AMT FLATUS. PT HAS MILD NAUSEA, REGLAN GIVEN PRN.
[2018-07-15 04:37] LABS: BASOPHILS ABSOLUTE AUTO 0.03 K/mm3 (0.00-0.23); BASOPHILS PERCENT AUTO 1 % (0-2); EOSINOPHILS ABSOLUTE AUTO 0.11 K/mm3 (0.00-0.68); EOSINOPHILS PERCENT AUTO 2 % (0-6); Hematocrit 44.2 % (37.0-53.0); Hemoglobin 14.9 g/dL (13.5-17.5); IMMATURE GRAN ABSOLUTE AUTO 0.03 K/mm3 (0.00-0.10); IMMATURE GRAN PERCENT AUTO 1 % (0-1); LYMPHOCYTES ABSOLUTE AUTO 1.28 K/mm3 (0.84-5.20); LYMPHOCYTES PERCENT AUTO 22 % (21-46); MONOCYTES ABSOLUTE AUTO 0.61 K/mm3 (0.16-1.47); MONOCYTES PERCENT AUTO 11 % (4-13); Mean Corpuscular HGB 32.3 pg (26.0-34.0); Mean Corpuscular HGB Conc 33.7 g/dL (31.5-36.5); Mean Corpuscular Volume 96 fL (80-100); Mean Platelet Volume 9.4 fL (9.1-12.4); NEUTROPHILS ABSOLUTE AUTO 3.67 K/mm3 (1.96-9.15); NEUTROPHILS PERCENT AUTO 64 % (41-73); Platelet Count 222 K/mm3 (150-400); RDW Coefficient Variation 12.5 % (11.7-14.2); RDW Standard Deviation 43.8 fL (35.1-46.3); Red Blood Cell Count 4.61 M/mm3 (4.30-5.90); White Blood Cell Count 5.73 K/mm3 (4.00-11.30)
[2018-07-15 04:59] LABS: Albumin, Blood 3.5 g/dL (3.4-5.0); Albumin/Globulin Ratio 1.3 (0.8-1.8); Bilirubin, Total 1.4 mg/dL (0.1-1.0); Bun/Creatinine Ratio 12.9 (12.0-20.0); Calcium, Blood 8.4 mg/dL (8.5-10.1); Creatinine, Blood 1.39 mg/dL (0.60-1.20); Globulin, Blood 2.6 g/dL (2.2-4.0); Magnesium, Blood 1.9 mg/dL (1.6-2.4)
[2018-07-15 05:08] LABS: Total Protein, Blood 6.1 g/dL (6.4-8.2)
--- NOTE | 2018-07-15 10:05 | NUR ---
Advance Directive Education conducted. Patient is lying in bed and alert when I entered patient's room. Patient's son, Lauri, is bedside. I spoke with patient and Lauri about the importance and process of the advance directive form. I covered the different sections of the forms and patient stated that he will have Lauri become his health acute care assistant. Lauri said that they will fill the booklet out at home and bring it back to the hospital. I left the advance directive in Lauri's care for the patient. I continue to remain available to patient and family.
--- NOTE | 2018-07-15 11:40 | NUR ---
RESTING PT RESTING AFTER AMBULATION THIS AM, REPORTS ABD STILL FEELING BLOATED BUT PASSING GAS AND AM BM. PAIN BETTER AFTER DOSE OF PAIN MEDS.
--- NOTE | 2018-07-15 12:16 | NUR ---
BM PT MEDICATED FOR PAIN POST BM, STATES PAIN INCREASES AFTER THIS. ABD SOFT.
--- NOTE | 2018-07-15 12:45 | NUR ---
REPORT FROM AGNIESZKA CM. ASSUMED PT CARE.
--- NOTE | 2018-07-15 14:32 | NUR ---
NEW BAG IVF STARTED. PT DENIES NEEDS. WATCHING TV.
--- NOTE | 2018-07-15 16:23 | NUR ---
DR GAO TO ROOM FOR RE-EVAL. DISCUSSED REINSERTING NG TUBE WITH PT. PT AGREEABLE.
--- NOTE | 2018-07-15 17:55 | NUR ---
pt resting in position of comfort. nadn. will cont to monitor.
--- NOTE | 2018-07-15 18:36 | NUR ---
pt medicated with dilaudid and zofran for c/o abd pain. pt up to chair for dr delaney.
--- NOTE | 2018-07-16 06:37 | NUR ---
SUMMARY PT REPORTS NO ABD THIS AM. PASSING SOME FLATUS. VERB FEELING BETTER AFTER NG TUBE WAS PLACED. 400 ML GREEN RETURN THIS SHIFT.NO C/O NAUSEA.
--- NOTE | 2018-07-16 07:49 | NUR ---
pt sleeping wakes to verbal stimuli pt stated abd pain is better no nausea another 100 ml out in ngt past the marked level from this am pt has btx3 none in llq no flatus
--- NOTE | 2018-07-16 08:10 | NUR ---
ZOFRAN 4 MG IVP GIVEN PT HAD SMALL AMT OF FLATUS GOT UP TO EDGE OF BED TO VOID HAD SMALL AMT OF UPPER ABD PAIN BUT IF PASSED
--- NOTE | 2018-07-16 08:20 | NUR ---
DR GAO BY TO SEE PT
--- NOTE | 2018-07-16 09:20 | NUR ---
PT TRANSPORTED TO XRAY FOR SMALL BOWEL FOLLOW THRU PER NGT LAB BY TO DRAW PT
--- NOTE | 2018-07-16 11:39 | NUR ---
pt back from small bowel follow thru pt had med size bm loose with some chunks green in color
[2018-07-16 11:57] LABS: BASOPHILS ABSOLUTE AUTO 0.05 K/mm3 (0.00-0.23); BASOPHILS PERCENT AUTO 1 % (0-2); EOSINOPHILS ABSOLUTE AUTO 0.09 K/mm3 (0.00-0.68); EOSINOPHILS PERCENT AUTO 2 % (0-6); Hemoglobin 16.8 g/dL (13.5-17.5); IMMATURE GRAN ABSOLUTE AUTO 0.02 K/mm3 (0.00-0.10); IMMATURE GRAN PERCENT AUTO 0 % (0-1); LYMPHOCYTES PERCENT AUTO 15 % (21-46); MONOCYTES ABSOLUTE AUTO 0.56 K/mm3 (0.16-1.47); MONOCYTES PERCENT AUTO 9 % (4-13); Mean Corpuscular HGB 32.1 pg (26.0-34.0); Mean Corpuscular HGB Conc 34.3 g/dL (31.5-36.5); Mean Corpuscular Volume 94 fL (80-100); Mean Platelet Volume 9.3 fL (9.1-12.4); NEUTROPHILS ABSOLUTE AUTO 4.53 K/mm3 (1.96-9.15); NEUTROPHILS PERCENT AUTO 74 % (41-73); Platelet Count 248 K/mm3 (150-400); RDW Coefficient Variation 12.1 % (11.7-14.2); RDW Standard Deviation 42.1 fL (35.1-46.3); Red Blood Cell Count 5.23 M/mm3 (4.30-5.90); White Blood Cell Count 6.15 K/mm3 (4.00-11.30)
[2018-07-16 12:29] LABS: Albumin, Blood 4.5 g/dL (3.4-5.0); Albumin/Globulin Ratio 1.3 (0.8-1.8); Bilirubin, Total 1.9 mg/dL (0.1-1.0); Bun/Creatinine Ratio 10.5 (12.0-20.0); Calcium, Blood 9.8 mg/dL (8.5-10.1); Creatinine, Blood 1.43 mg/dL (0.60-1.20); Globulin, Blood 3.5 g/dL (2.2-4.0); Magnesium, Blood 2.1 mg/dL (1.6-2.4); Potassium, Blood 4.1 mmol/L (3.5-5.5)
--- NOTE | 2018-07-16 14:11 | NUR ---
PT OOB TO BATHROOM HAD ANOTHER LOOSE BM
--- NOTE | 2018-07-16 17:12 | NUR ---
CALLED DR SIMA MCGHEE COMMUTATOR ASSEMBLER REVIEWED SMALL BOWEL OK TO REMOVE NGT AND TRIAL CL DIET
--- NOTE | 2018-07-16 18:24 | NUR ---
pt alex in formerly [facility], [facility]
--- NOTE | 2018-07-17 05:43 | NUR ---
SUMMARY PT TOLERATING OF NG OUT.BM+ TOLERATING SIPS. VOIDING.
[2018-07-17 06:21] LABS: Alanine Aminotransfer (ALT/SGP 27 U/L (12-78); Albumin, Blood 3.6 g/dL (3.4-5.0); Albumin/Globulin Ratio 1.1 (0.8-1.8); Alk Phos 83 U/L (50-136); Anion Gap 8 mmol/L (6-16); Aspartate Aminotrans (AST/SGOT 19 U/L (12-37); Bilirubin, Total 1.1 mg/dL (0.1-1.0); Blood Urea Nitrogen 14 mg/dL (8-24); Bun/Creatinine Ratio 11.6 (12.0-20.0); CO2, Blood 31 mmol/L (21-32); Chloride, Blood 101 mmol/L (98-108); Creatinine, Blood 1.21 mg/dL (0.60-1.20); Globulin, Blood 3.2 g/dL (2.2-4.0); Glomerular Filtration Rate >60 (60-); Glucose, Blood 86 mg/dL (70-99); Potassium, Blood 3.6 mmol/L (3.5-5.5); Sodium, Blood 140 mmol/L (136-145); Total Protein, Blood 6.8 g/dL (6.4-8.2)
[2018-07-17 06:23] LABS: BASOPHILS ABSOLUTE AUTO 0.02 K/mm3 (0.00-0.23); BASOPHILS PERCENT AUTO 0 % (0-2); EOSINOPHILS ABSOLUTE AUTO 0.11 K/mm3 (0.00-0.68); EOSINOPHILS PERCENT AUTO 2 % (0-6); Hematocrit 44.6 % (37.0-53.0); Hemoglobin 15.4 g/dL (13.5-17.5); IMMATURE GRAN ABSOLUTE AUTO 0.01 K/mm3 (0.00-0.10); IMMATURE GRAN PERCENT AUTO 0 % (0-1); LYMPHOCYTES PERCENT AUTO 20 % (21-46); MONOCYTES ABSOLUTE AUTO 0.69 K/mm3 (0.16-1.47); MONOCYTES PERCENT AUTO 13 % (4-13); Mean Corpuscular HGB 32.3 pg (26.0-34.0); Mean Corpuscular HGB Conc 34.5 g/dL (31.5-36.5); Mean Corpuscular Volume 94 fL (80-100); Mean Platelet Volume 9.8 fL (9.1-12.4); NEUTROPHILS ABSOLUTE AUTO 3.49 K/mm3 (1.96-9.15); NEUTROPHILS PERCENT AUTO 64 % (41-73); Platelet Count 233 K/mm3 (150-400); RDW Coefficient Variation 11.9 % (11.7-14.2); RDW Standard Deviation 41.2 fL (35.1-46.3); Red Blood Cell Count 4.77 M/mm3 (4.30-5.90); White Blood Cell Count 5.42 K/mm3 (4.00-11.30)
--- NOTE | 2018-07-17 16:37 | NUR ---
SHIFT SUMMARY NO ACUTE CHANGES TODAY. PT DENIES PAIN. ADVANCING DIET TOLERATED. NO N/V. PT PASSING GAS AND HAD X1 BM TODAY. BT+ AND HYPERACTIVE. VSS. INDEP IN ROOM. USES CALL LIGHT APPROPRIATELY.
[2018-07-18 05:08] LABS: BASOPHILS ABSOLUTE AUTO 0.02 K/mm3 (0.00-0.23); BASOPHILS PERCENT AUTO 0 % (0-2); EOSINOPHILS ABSOLUTE AUTO 0.11 K/mm3 (0.00-0.68); EOSINOPHILS PERCENT AUTO 2 % (0-6); Hematocrit 44.6 % (37.0-53.0); Hemoglobin 15.5 g/dL (13.5-17.5); IMMATURE GRAN ABSOLUTE AUTO 0.01 K/mm3 (0.00-0.10); IMMATURE GRAN PERCENT AUTO 0 % (0-1); LYMPHOCYTES ABSOLUTE AUTO 1.16 K/mm3 (0.84-5.20); LYMPHOCYTES PERCENT AUTO 21 % (21-46); MONOCYTES ABSOLUTE AUTO 0.63 K/mm3 (0.16-1.47); MONOCYTES PERCENT AUTO 12 % (4-13); Mean Corpuscular HGB 32.2 pg (26.0-34.0); Mean Corpuscular HGB Conc 34.8 g/dL (31.5-36.5); Mean Corpuscular Volume 93 fL (80-100); Mean Platelet Volume 9.4 fL (9.1-12.4); NEUTROPHILS ABSOLUTE AUTO 3.54 K/mm3 (1.96-9.15); NEUTROPHILS PERCENT AUTO 65 % (41-73); Platelet Count 249 K/mm3 (150-400); RDW Coefficient Variation 11.9 % (11.7-14.2); RDW Standard Deviation 41.1 fL (35.1-46.3); Red Blood Cell Count 4.81 M/mm3 (4.30-5.90); White Blood Cell Count 5.47 K/mm3 (4.00-11.30)
[2018-07-18 05:37] LABS: Albumin, Blood 3.8 g/dL (3.4-5.0); Albumin/Globulin Ratio 1.2 (0.8-1.8); Bilirubin, Total 1.2 mg/dL (0.1-1.0); Bun/Creatinine Ratio 8.8 (12.0-20.0); Calcium, Blood 9.2 mg/dL (8.5-10.1); Creatinine, Blood 1.37 mg/dL (0.60-1.20); Globulin, Blood 3.2 g/dL (2.2-4.0); Potassium, Blood 3.5 mmol/L (3.5-5.5)
--- NOTE | 2018-07-18 07:52 | NUR ---
SHIFT SUMMARY: PT HAS DONE WELL THIS SHIFT. RESTING MOST OF NIGHT. MEDICATED ONCE FOR C/O HEADACHE. A&O X4. VS WNL. PT INDEPENDENT IN ROOM. REPORTS PASSING GAS AND HAVING BM'S. OBDULIA DIET. DENIES N/V. DENIES PAIN T/O SHIFT. PT SHOULD DISCHARGE HOME TODAY.
--- NOTE | 2018-07-18 14:59 | NUR ---
DISCHARGE PT DISCHARGED TO HOME AT 1345. IV REMOVED PT TOLERATED WELL. WRITTEN AND VERBAL DISCHARGE INSTRUCTIONS GIVEN. PATIENT VERBALIZED UNDERSTANDING. PT DECLINED WHEELCHAIR AND LEFT WITH 2 FAMILY MEMBERS.
== END 2018-07-18 15:02 | disposition home or self-care (01) | DRG 389 ==
LOC: ER 06:04 → SURS 09:13 → ER 10:22 → SURS 10:36
PROVIDERS: Emergency Medicine; ADMIT Family Medicine
PROC: 0D9670Z Drainage of Stomach with Drainage Device, Via Natural or Artificial Opening (ICD-10-PCS; principal; 2018-07-14)
DX: K56.600 Partial intestinal obstruction, unspecified as to cause (principal); E87.1 Hypo-osmolality and hyponatremia; E66.01 Morbid (severe) obesity due to excess calories; K21.9 Gastro-esophageal reflux disease without esophagitis; K76.0 Fatty (change of) liver, not elsewhere classified; I12.9 Hypertensive chronic kidney disease with stage 1 through stage 4 chronic kidney disease, or unspecified chronic kidney disease; N18.3 Chronic kidney disease, stage 3 (moderate); G47.33 Obstructive sleep apnea (adult) (pediatric); Z68.36 Body mass index [BMI] 36.0-36.9, adult; D75.1 Secondary polycythemia
CPT/HCPCS: 36415; 74018; 74176; 74250; 80053; 82947; 83690; 83735; 85025; 93005; 93010; 96361; 96374; 96375; 96376; 99285-25; C9113; J1170; J1650; J2405; J2765; J3010; J7120

== ENCOUNTER 2018-08-05 15:48 | Inpatient (IN) | payer MEDICARE ==
[~2018-08-05] VITALS: Ht 180.3 cm; Wt 103.1 kg
[~2018-08-05 15:48] MED LIST changes: -ASPI81CH PO; +Aspirin EC81 MG PO; -CARV6.25 PO; -MIRALAX17 GM PO; -Zantac150 MG PO
[2018-08-05 16:21] LABS: BASOPHILS ABSOLUTE AUTO 0.08 K/mm3 (0.00-0.23); BASOPHILS PERCENT AUTO 1 % (0-2); EOSINOPHILS ABSOLUTE AUTO 0.09 K/mm3 (0.00-0.68); EOSINOPHILS PERCENT AUTO 1 % (0-6); Hematocrit 53.5 % (37.0-53.0); Hemoglobin 17.9 g/dL (13.5-17.5); IMMATURE GRAN ABSOLUTE AUTO 0.04 K/mm3 (0.00-0.10); IMMATURE GRAN PERCENT AUTO 0 % (0-1); LYMPHOCYTES ABSOLUTE AUTO 1.61 K/mm3 (0.84-5.20); LYMPHOCYTES PERCENT AUTO 14 % (21-46); MONOCYTES ABSOLUTE AUTO 0.98 K/mm3 (0.16-1.47); MONOCYTES PERCENT AUTO 8 % (4-13); Mean Corpuscular HGB 32.4 pg (26.0-34.0); Mean Corpuscular HGB Conc 33.5 g/dL (31.5-36.5); Mean Corpuscular Volume 97 fL (80-100); Mean Platelet Volume 9.4 fL (9.1-12.4); NEUTROPHILS ABSOLUTE AUTO 8.96 K/mm3 (1.96-9.15); NEUTROPHILS PERCENT AUTO 76 % (41-73); Platelet Count 369 K/mm3 (150-400); RDW Coefficient Variation 12.7 % (11.7-14.2); RDW Standard Deviation 45.2 fL (35.1-46.3); Red Blood Cell Count 5.52 M/mm3 (4.30-5.90); White Blood Cell Count 11.76 K/mm3 (4.00-11.30)
[2018-08-05 16:35] LABS: Albumin, Blood 4.7 g/dL (3.4-5.0); Albumin/Globulin Ratio 1.3 (0.8-1.8); Bilirubin, Total 1.1 mg/dL (0.1-1.0); Bun/Creatinine Ratio 10.1 (12.0-20.0); Calcium, Blood 9.9 mg/dL (8.5-10.1); Creatinine, Blood 2.37 mg/dL (0.60-1.20); Globulin, Blood 3.7 g/dL (2.2-4.0); Potassium, Blood 4.8 mmol/L (3.5-5.5); Total Protein, Blood 8.4 g/dL (6.4-8.2)
[2018-08-05] MEDS ORDERED: AMLO10 PO (19:15)
[2018-08-05] MEDS ORDERED: CARV6.25 PO (19:15)
[2018-08-05] MEDS ORDERED: DOCU100 PO (19:16)
[2018-08-05] MEDS ORDERED: LIDOCAINE5 GM TOP (19:16)
[2018-08-05] MEDS ORDERED: Prinivil10 MG PO (19:17)
[2018-08-05] MEDS ORDERED: MIRALAX17 GM PO (19:18)
[2018-08-05] MEDS ORDERED: Zantac150 MG PO (19:18)
[2018-08-06 05:48] LABS: Hemoglobin 14.6 g/dL (13.5-17.5); International Normalized Ratio 1.03; Mean Corpuscular HGB 32.2 pg (26.0-34.0); Mean Corpuscular HGB Conc 32.4 g/dL (31.5-36.5); Mean Corpuscular Volume 99 fL (80-100); Mean Platelet Volume 9.6 fL (9.1-12.4); Platelet Count 248 K/mm3 (150-400); Prothrombin Time Results 10.9 Sec (9.7-11.5); RDW Standard Deviation 47.8 fL (35.1-46.3); Red Blood Cell Count 4.54 M/mm3 (4.30-5.90); White Blood Cell Count 10.73 K/mm3 (4.00-11.30)
[2018-08-06 05:50] LABS: Magnesium, Blood 1.9 mg/dL (1.6-2.4)
[2018-08-06 06:02] LABS: Albumin, Blood 3.6 g/dL (3.4-5.0); Albumin/Globulin Ratio 1.3 (0.8-1.8); Bilirubin, Total 1.1 mg/dL (0.1-1.0); Bun/Creatinine Ratio 13.8 (12.0-20.0); Calcium, Blood 8.3 mg/dL (8.5-10.1); Creatinine, Blood 2.1 mg/dL (0.60-1.20); Globulin, Blood 2.8 g/dL (2.2-4.0); Potassium, Blood 4.4 mmol/L (3.5-5.5); Total Protein, Blood 6.4 g/dL (6.4-8.2)
--- NOTE | 2018-08-06 06:20 | NUR ---
SHIFT SUMMARY PT NEW ED ADMIT THIS EVENING. PT HAS HX OF RECURRENT SMALL BOWEL OBSTRUCTIONS AND WAS JUST HERE IN THE BEGINNING OF JULY FOR IT WELL. REPORTS HE HAS HAD APPROX 8-10 OBSTRUCTIONS IN THE PAST 5 YEARS. NG TUBE IN PLACE, SET TO LOW INTERMITTENT SUCTION. ONLY A SMALL AMOUNT OF YELLOW OUTPUT, SOME VERY THICK IF IT'S UNDIGESTED FOOD. PT'S ABD PAIN COMES ON SUDDENLY AND SEVERELY. PT COMFORTABLE FIRST SEVERAL HOURS AFTER BEING ADMITTED. THEN SUDDENLY PT REPORTED SEVERE SHARP ABD PAIN 01/14 STATING THAT THIS WAS SIMILIAR TO WHEN HE CAME INTO THE EMERGENCY DEPARTMENT. IT TOOK SEVERAL HOURS AND MULTIPLE MEDICATIONS TO GET PAIN BACK UNDER CONTROL. SINCE THEN, PT HAS AGAIN REMAINED COMFORTABLE. PT HAS BEEN NPO. NO BOWEL MOVEMENTS. ONLY REPORTS NAUSEA W/ MOVEMENT AND NO EPISODES OF EMESIS. PT'S VITAL SIGNS STABLE. CONSULT FOR GENERAL SURGERY TO BE IN TODAY TO SEE PT. WILL CONTINUE TO MONITOR.
--- NOTE | 2018-08-06 09:27 | NUR ---
CURRENTLY NPO. DENIES PAIN OR NAUSEA BUT STATES ABDOMEN DISTENDED AND TENDER. STATES HE IS PASSING GAS. DR. COTO IN TO SEE HIM AND STATED HE WOULD BE BACK TO REEVALUATE WHETHER SURGERY WAS NEEDED OR NOT.
--- NOTE | 2018-08-06 09:47 | NUR ---
PATIENT DID NOT EAT BREAKFAST THIS SHIFT DUE TO BEING NPO AT THIS TIME. RN NOTIFIED.
--- NOTE | 2018-08-06 12:59 | NUR ---
DR. COTO IN TO SEE PT AND CALLED SON. PLANS FOR SURGERY THIS AFTERNOON. SPOKE WITH DAY SURGERY. THEY WERE HERE TO PICK PT UP APPROX 40 MINUTES AGO.
--- NOTE | 2018-08-06 14:45 | NUR ---
REPORT GIVEN TO BELKIS ON SURGICAL FLOOR. PT TO GO TO 227
--- NOTE | 2018-08-06 17:00 | NUR ---
PATIENT ARRIVED TO ROOM 227 ON BED FROM PACU. AWAKE, GROGGRY. NG PRESENT. EPIDURAL SECURE. LSS CLEAR. BIOX 89-92 % ON RA. HRR. BT'S HYPO. PROVENA WOUND VAC TO ABD, BINDER IN PLACE. FC PATENT, DRAINING CLEAR YELLOW URINE. PAS IN PLACE. PATIENT STATES SENSATION PRESENT BUT DECREASED FROM NIPPLE LINE TO LOWER THIGHS. WIGGLES FEET. 20 GA IV SL TO RFA. 18 GA IV TO LFA, IVF INFUSING. PATIENT STATES PAIN 1/10. DENIES NAUSEA. VSS. CONT TO MONITOR.
--- NOTE | 2018-08-06 17:50 | NUR ---
PATIENT DOZING WHEN NOT DISTURBED. VSS.
--- NOTE | 2018-08-06 18:55 | NUR ---
PATIENT STATES ABD PAIN 3/10. INSTRUCTIONS GIVEN FOR EPIDURAL MATERIAL ATTENDANT. ORAL SPONGE GIVEN. MOVES FEET/LEGS. NG TO LIS, DRAINING BROWN FLUID. IVF INFUSING PER ORDER. NO NEEDS AT THIS TIME.
--- NOTE | 2018-08-07 03:23 | NUR ---
PT'S PAIN NOT MANAGED, RATING PAIN 5/10 WHEN NOT MOVING AND 10/10 WHEN MOVING. PT HAS NUMBNESS FROM UMBILICUS TO TOES, AND NO NUMBNESS AT ABD. DR. HANDLEY NOTIFIED AT 314, NEW ORDER TO INCREASE CONTINUIOUS RATE TO 18ML/HR. EPIDURAL RATE INCRASED AT 309, VERIFIED WITH TOI ROBBINS. WILL CTM PT STATUS.
[2018-08-07 04:24] LABS: Bun/Creatinine Ratio 17.6 (12.0-20.0); Calcium, Blood 8.3 mg/dL (8.5-10.1); Creatinine, Blood 1.42 mg/dL (0.60-1.20); Potassium, Blood 4.9 mmol/L (3.5-5.5)
[2018-08-07 04:33] LABS: BASOPHILS ABSOLUTE AUTO 0.05 K/mm3 (0.00-0.23); BASOPHILS PERCENT AUTO 0 % (0-2); EOSINOPHILS PERCENT AUTO 0 % (0-6); Hematocrit 43.8 % (37.0-53.0); Hemoglobin 14.5 g/dL (13.5-17.5); IMMATURE GRAN ABSOLUTE AUTO 0.09 K/mm3 (0.00-0.10); IMMATURE GRAN PERCENT AUTO 1 % (0-1); LYMPHOCYTES ABSOLUTE AUTO 0.59 K/mm3 (0.84-5.20); LYMPHOCYTES PERCENT AUTO 4 % (21-46); MONOCYTES ABSOLUTE AUTO 0.76 K/mm3 (0.16-1.47); MONOCYTES PERCENT AUTO 5 % (4-13); Mean Corpuscular HGB 32.7 pg (26.0-34.0); Mean Corpuscular HGB Conc 33.1 g/dL (31.5-36.5); Mean Corpuscular Volume 99 fL (80-100); Mean Platelet Volume 9.9 fL (9.1-12.4); NEUTROPHILS ABSOLUTE AUTO 15.42 K/mm3 (1.96-9.15); NEUTROPHILS PERCENT AUTO 91 % (41-73); Platelet Count 207 K/mm3 (150-400); RDW Coefficient Variation 12.6 % (11.7-14.2); RDW Standard Deviation 45.7 fL (35.1-46.3); Red Blood Cell Count 4.44 M/mm3 (4.30-5.90); White Blood Cell Count 16.91 K/mm3 (4.00-11.30)
--- NOTE | 2018-08-07 05:59 | NUR ---
SUMMARY: SEE PREVIOUS NOTE. PT IS POD1 EXPLORATORY LAP WITH LYSIS OF ADHESIONS. VSS, A/O. CONTINUING Q1 HR EPIDURAL CHECKS WHICH ARE WNL THIS SHIFT. PT EPIDURAL CONTINIOUS RATE CURRENTLY AT 18ML/HR. PT RATING PAIN 1/10 IN ABD AND IS MOVING BETTER IN BED. SEE EPIDURAL ASSESSMENT CHARTING. SURGICAL SITE WNL. NGT HAD 200ML OF DRAINAGE OUT, PT HAS DENIED N/V, IS NPO. NO ACUTE CONCERNS AT THIS TIME. WILL REPORT TO DAY RN.
--- NOTE | 2018-08-07 12:00 | NUR ---
PATIENT C/O INTERMITANT PAIN. SLEEPS WHEN NOT DISTURBED. VSS. PROVENA VAC INTACT. IVF INFUSING PER ORDER, SITE CLEAR. USING IS WHEN AWAKE.
--- NOTE | 2018-08-07 15:20 | NUR ---
PATIENT ASSISTED UP TO CHAIR W/2 PERSON ASSIST. LEGS WEAK. EPIDURAL INTACT TO BACK, TUBING DISCONNECTED AT SHOULDER CONNECTION. CALL TO DAY SURGERY TO LOCATE ANESTHESIOLOGIST ON SITE. AWAITING REPLY.
--- NOTE | 2018-08-07 15:25 | NUR ---
PATIENT IN CHAIR. MORPHINE 3 MG ADM FOR PAIN RATED 3/10. AWAITING ANESTHESIOLOGIST.
--- NOTE | 2018-08-07 15:55 | NUR ---
ANESTHESIOLOGIST IN TO SEE, EPIDURAL D/C'D, SITE CLEAR. DR COTO IN TO SEE. NEW ORDERS. PATIENT STATES COMFORTABLE AT THIS TIME.
--- NOTE | 2018-08-07 15:59 | NUR ---
08/07/18 1559 August,Edda Zapien VERIFICATIONS EDIT CHART
--- NOTE | 2018-08-07 17:50 | NUR ---
SHIFT SUMMARY PATIENT STATES ABD PAIN INTERMITANT AND CONTROLLED WITH IV MORPHINE. UP IN CHAIR. DENIES NAUSEA. NG W/ 50 ML BROWN FLUID OUT THIS SHIFT. VSS. FC PATENT AND DRAINING. CONT TO MONITOR.
--- NOTE | 2018-08-07 21:45 | NUR ---
FOUND PT STANDING BY CHAIR WITH CORDS/TUBES WRAPED AROUND HIM PT STATED HE WAS TRYING TO GET TO BED BUT HAD NOT USED CALL LIGHT IN HIS HAND. HELPED PT TO BED REMINDED PT TO USE CALL LIGHT BEFORE GETTING UP AND PLACED BED ALARM ON PT.
--- NOTE | 2018-08-08 09:49 | NUR ---
REPORTS PASSING FLATUS THIS AM, NGT ADVANCED BY DR. COTO THIS AM, REPORTS PAIN IS TOLERABLE WITH IV MORPHINE.
--- NOTE | 2018-08-08 18:38 | NUR ---
SUMMARY REPORTS PAIN IS BETTER THIS AFTERNOON, DENIES ANY NAUSEA, CONTINUES TO PASS SMALL AMOUNTS OF FLATUS, MINIMAL OUTPUT FROM NGT, OOB TO CHAIR X2, TOLERATED WELL, VOIDING WITHOUT DIFFICULTY AFTER HERRERA CATH DC'D TODAY, ABD CONT. TO BE DISTENDED, DR. COTO AWARE, NO ACUTE CHANGES THIS SHIFT.
[2018-08-09 04:31] LABS: BASOPHILS ABSOLUTE AUTO 0.03 K/mm3 (0.00-0.23); BASOPHILS PERCENT AUTO 1 % (0-2); EOSINOPHILS ABSOLUTE AUTO 0.27 K/mm3 (0.00-0.68); EOSINOPHILS PERCENT AUTO 5 % (0-6); Hematocrit 43.2 % (37.0-53.0); Hemoglobin 14.2 g/dL (13.5-17.5); IMMATURE GRAN ABSOLUTE AUTO 0.02 K/mm3 (0.00-0.10); IMMATURE GRAN PERCENT AUTO 0 % (0-1); LYMPHOCYTES ABSOLUTE AUTO 0.83 K/mm3 (0.84-5.20); LYMPHOCYTES PERCENT AUTO 16 % (21-46); MONOCYTES ABSOLUTE AUTO 0.57 K/mm3 (0.16-1.47); MONOCYTES PERCENT AUTO 11 % (4-13); Mean Corpuscular HGB 32.1 pg (26.0-34.0); Mean Corpuscular HGB Conc 32.9 g/dL (31.5-36.5); Mean Corpuscular Volume 98 fL (80-100); Mean Platelet Volume 9.4 fL (9.1-12.4); NEUTROPHILS ABSOLUTE AUTO 3.58 K/mm3 (1.96-9.15); NEUTROPHILS PERCENT AUTO 67 % (41-73); Platelet Count 190 K/mm3 (150-400); RDW Coefficient Variation 12.5 % (11.7-14.2); RDW Standard Deviation 45.1 fL (35.1-46.3); Red Blood Cell Count 4.42 M/mm3 (4.30-5.90)
[2018-08-09 05:01] LABS: Anion Gap 4 mmol/L (6-16); Blood Urea Nitrogen 12 mg/dL (8-24); Bun/Creatinine Ratio 9.8 (12.0-20.0); CO2, Blood 34 mmol/L (21-32); Calcium, Blood 8.9 mg/dL (8.5-10.1); Chloride, Blood 100 mmol/L (98-108); Creatinine, Blood 1.23 mg/dL (0.60-1.20); Glomerular Filtration Rate >60 (60-); Glucose, Blood 124 mg/dL (70-99); Potassium, Blood 3.8 mmol/L (3.5-5.5); Sodium, Blood 138 mmol/L (136-145)
--- NOTE | 2018-08-09 07:00 | NUR ---
recvd report from previous RN Rinku, pt sleeping in bed, call light within reach, bed rails up x 2, bed in lowest position
--- NOTE | 2018-08-09 07:22 | NUR ---
SUMMARY NO FLATUS OR STOOL TONIGHT. CONT WITH NG. NO C/O NAUSEA. MED WITH MORPHINE FOR PAIN.PT VERB EFFECTIVE.DID NOT GIVE PRN BP MEDS DUE TO BRADYCARDIA AFTE DISCUSSION WITH PCU DRIVE THRU ORDER TAKERTOI MORALES.
--- NOTE | 2018-08-09 07:50 | NUR ---
DR COTO ROUNDING ON PT
--- NOTE | 2018-08-09 16:09 | NUR ---
1510- BP 185/104, pt medicated per jun 1599- recheck BP 175/97, HR between 48-65
--- NOTE | 2018-08-09 17:37 | NUR ---
shift summary: pt remained a/0 x 4, pleasant/cooperative, worked with PT up to chair for 3 hrs this shift, ambulated to bathroom and up in room x 2 using fww and gait belt, tolerated well. pain controlled per jun to 06/14 on reassessment, down from 6-7 with administration. pt has bowel tones, no flatus this shift. NG with 450 ml dark green fluid this shift. pt states sharp recurring pain in the r lower quadrant, tender, reports abdomen less distended and slightly softer than previous, pt remained NPO with minimal ice chips this shift. no BM, no flatus. elevated BP r/t not receiving PO antihypertensive home medications r/t NPO status, medicated per jun with IV antihypertensive with resulting slight decrease in SBP (from 185 down to 175), decreased HR following administration with HR dropping below 50 intermittently. Within 2.5 hrs following administration of labetolol per MAR heartrate returned to 55-65 BPM. Pt's son visited this shift.
--- NOTE | 2018-08-09 21:30 | NUR ---
AMBULATED IN LEDEZMA TO NURSES STATION AND BACK TO ROOM, TOLERATED WELL. WILL CONTINUE TO MONITOR.
--- NOTE | 2018-08-10 06:55 | NUR ---
recvd report from prvious shift RN Stacey, pt sleeping in bed, bed in lowest position, call light within reach, bed rails up x 2.
--- NOTE | 2018-08-10 14:30 | NUR ---
Initial Visit: Palliative Care Consult for Medically Fragile and Readmission. Pt is A&O and reports a tolerable 3/10 pain in his abdomen. He reports current regimen is managing his pain and states that his pain is starting to improve. Pt denies dyspnea and nausea at this time. He also reports having a bowel movement recently which has improved his pain and nausea. Engaged in therapeutic discussion regarding goals of care. Pt lives at home alone and reports no cheondoism naif. Pt reports he is independent and has no concerns with needs of care. He reports his son lives close by and can call on him for any assistance. Educated Pt on constipation prevention including drinking adequates amount of water and activity. Pt reports that he takes a stool softener on a daily basis. Discussed AD/POLST with Pt and he reports having an advanced directive at home and will complete after giving it some thought. Pt reports no concerns at this time. Palliative Care will remain available.
--- NOTE | 2018-08-10 18:15 | NUR ---
shift summary: vss, no acute changes. pt remained a/0 x 4, pleasant/cooperative. pt reports he "feels better" today, able to ambulate in hallway to nurses station x 2 this shift, to bathroom x 4. no n/v, pain controlled per MAR. pt with 3 small gee, mucousy BMs. Active bowel tones. clamped LOOM CHANGER per hospitalist order to trial PO antihypertensive home medication, tolerated well with no N/V. PT remained NPO except for sip with meds. Pt's son visited x 1 this shift. Pt up in chair for 3 hrs this shift.
--- NOTE | 2018-08-11 04:57 | NUR ---
SUMMARY NO ACUTE CHANGES NOTED THROUGH THE NIGHT. VSS. PT IS PASSING FLATUS. REPORTS SMALL BM. 650 ML DARK GREEN DRAINAGE NOTED IN NG CANNISTER. VOIDING WNL. DRSG/PROVENA REMAINS WNL, SUCTION INTACT. PAIN MANAGED PER EMAR. PT CALLS APPROPRIATLY. CALL LIGHT IN REACH. WCTM
[2018-08-11 05:47] LABS: BASOPHILS ABSOLUTE AUTO 0.04 K/mm3 (0.00-0.23); BASOPHILS PERCENT AUTO 1 % (0-2); EOSINOPHILS ABSOLUTE AUTO 0.31 K/mm3 (0.00-0.68); EOSINOPHILS PERCENT AUTO 5 % (0-6); Hematocrit 44.3 % (37.0-53.0); Hemoglobin 14.9 g/dL (13.5-17.5); IMMATURE GRAN ABSOLUTE AUTO 0.03 K/mm3 (0.00-0.10); IMMATURE GRAN PERCENT AUTO 1 % (0-1); LYMPHOCYTES ABSOLUTE AUTO 0.88 K/mm3 (0.84-5.20); LYMPHOCYTES PERCENT AUTO 14 % (21-46); MONOCYTES ABSOLUTE AUTO 0.65 K/mm3 (0.16-1.47); MONOCYTES PERCENT AUTO 10 % (4-13); Mean Corpuscular HGB 31.9 pg (26.0-34.0); Mean Corpuscular HGB Conc 33.6 g/dL (31.5-36.5); Mean Platelet Volume 9.4 fL (9.1-12.4); NEUTROPHILS ABSOLUTE AUTO 4.35 K/mm3 (1.96-9.15); NEUTROPHILS PERCENT AUTO 69 % (41-73); Platelet Count 241 K/mm3 (150-400); RDW Coefficient Variation 12.4 % (11.7-14.2); RDW Standard Deviation 42.9 fL (35.1-46.3); Red Blood Cell Count 4.67 M/mm3 (4.30-5.90); White Blood Cell Count 6.26 K/mm3 (4.00-11.30)
[2018-08-11 05:54] LABS: Mean Corpuscular Volume 95 fL (80-100)
[2018-08-11 06:09] LABS: Anion Gap 6 mmol/L (6-16); Blood Urea Nitrogen 19 mg/dL (8-24); CO2, Blood 30 mmol/L (21-32); Calcium, Blood 9.4 mg/dL (8.5-10.1); Chloride, Blood 101 mmol/L (98-108); Creatinine, Blood 1.27 mg/dL (0.60-1.20); Glomerular Filtration Rate 60 (60-); Glucose, Blood 125 mg/dL (70-99); Magnesium, Blood 2.2 mg/dL (1.6-2.4); Phosphorus, Blood 3.2 mg/dL (2.5-4.9); Potassium, Blood 3.9 mmol/L (3.5-5.5); Sodium, Blood 137 mmol/L (136-145); Triglycerides 120 mg/dL (30-160)
--- NOTE | 2018-08-11 16:44 | NUR ---
SUMMARY AMBULATED IN LEDEZMA X2 AND SAT IN CHAIR X2 THIS SHIFT. PATIENT REPORTS GOOD PAIN CONTROL WITH ORDERED MEDS. PATIENT PASSED SMALL AMOUNT FLATUS. MEDICATED X1 FOR NAUSEA. NG TO LIS WITH DARK GREEN OUTPUT. MIDLINE PREVENA IN PLACE AND NO DRAINAGE.
[2018-08-12 06:04] LABS: Calcium, Blood 9.2 mg/dL (8.5-10.1); Creatinine, Blood 1.37 mg/dL (0.60-1.20); Magnesium, Blood 2.2 mg/dL (1.6-2.4); Phosphorus, Blood 3.6 mg/dL (2.5-4.9); Potassium, Blood 3.9 mmol/L (3.5-5.5)
--- NOTE | 2018-08-12 07:23 | NUR ---
SUMMARY: NO ACUTE CHANGE TONIGHT. MINIMAL OUTPUT FROM NGT, PT REPORTS PASSING GAS, NO N/V. SURGICAL SITE WNL. PT HAD SOME HTN, MEDICATED PER EMAR, OTHERWISE VSS. DAY RN MADE AWARE OF PT BP THIS AM. CLINAMIX AND LIPIDS INFUSING. PT A/O USING CALL LIGHT. NO SAFETY CONCERNS AT THIS TIME.
--- NOTE | 2018-08-12 17:08 | NUR ---
SUMMARY PATIENT AMBULATED IN HALLWAYS X2 AND SAT IN CHAIR FOR SEVERAL HOURS. PATIENT WITH SHARP STABBING ABD PAIN IN AM WHICH HAS SOMEWHAT LESSENED THIS AFTERNOON. PATIENT PASSING SMALL AMOUNTS OF FLATUS
[2018-08-13 05:34] LABS: Bun/Creatinine Ratio 20.1 (12.0-20.0); Calcium, Blood 8.9 mg/dL (8.5-10.1); Creatinine, Blood 1.34 mg/dL (0.60-1.20); Magnesium, Blood 2.3 mg/dL (1.6-2.4); Phosphorus, Blood 3.5 mg/dL (2.5-4.9); Potassium, Blood 3.8 mmol/L (3.5-5.5)
--- NOTE | 2018-08-13 06:40 | NUR ---
LYING ON HIS RIGHT SIDE WITH EYES CLOSED AND TV ON. HAS HAD A GOOD NIGHT, NO C/O PAIN OR PAIN MED REQUESTS, RESTED WITH EASE. HAS BEEN PLEASANT, AND COOPERATIVE WITH ALL COMMANDS AND REQUESTS. DENIES FURTHER NEEDS AT THIS TIME. SAFETY MEAURES IN PLACE. WILL CONTINUE TO MONITOR.
--- NOTE | 2018-08-13 17:12 | NUR ---
SUMMARY PT HAS DONE WELL TODAY. PT DENIES NAUSEA AND PAIN. HE HAS HAD 3 FORMED, SOFT BM'S. PT TOLERATED A SMALL CUP OF APPLE JUICE. PT AMBULATING IN HALLS STAND BY ASSIST WITH THERAPY AND LUMBER PRESS OPERATOR. PT CALLS APPROPRIATLEY. CALL LIGHT IN REACH.
--- NOTE | 2018-08-13 18:40 | NUR ---
PT CONT TO PASS LIQ STOOL BUT DENIES FLAUTS. PAIN IS TOLERATING NO N/V. DID C/O ITCHING. DR. RENDON WAS IN TO SEE PT AND ORDERED BENADRYL AND STARTED MYCELEX FOR THRUSH. IV CLINIMIX RESTARTED. PT CURRENTLY RESTING IN BED.
--- NOTE | 2018-08-14 06:49 | NUR ---
SUMMARY PT INCREASINGLY BLOATED. NOT PASSING FLATUS OR STOOL TONIGHT. CONT IWTH SHARP SUDDEN CRAMPING LIKE ABD PAIN MORE TO L ABD THAN R. PROGRESS NOTES DUE MENTION THEY ARE AWAARE SUCH PER NURSING REPORT.PT REPORTS PAIN IMPROVES WITH WARM BLANKET TO ABD AND MORPHINE IV. PT VOIDING DARK LISSET URINE. ENC NEED TO ATTEMPT TO VOID NOT FEELING MUCH URGE TO VOID AND REQUIRED NURSING TO ENC ATTEMPT WITH 400 ML RETURN. 0 BLADDER SCAN. PT AGREABLE TO THIS.
[2018-08-14 12:32] LABS: BASOPHILS ABSOLUTE AUTO 0.06 K/mm3 (0.00-0.23); BASOPHILS PERCENT AUTO 1 % (0-2); EOSINOPHILS ABSOLUTE AUTO 0.45 K/mm3 (0.00-0.68); EOSINOPHILS PERCENT AUTO 4 % (0-6); Hematocrit 46.4 % (37.0-53.0); Hemoglobin 15.7 g/dL (13.5-17.5); IMMATURE GRAN ABSOLUTE AUTO 0.07 K/mm3 (0.00-0.10); IMMATURE GRAN PERCENT AUTO 1 % (0-1); LYMPHOCYTES ABSOLUTE AUTO 1.24 K/mm3 (0.84-5.20); LYMPHOCYTES PERCENT AUTO 12 % (21-46); MONOCYTES ABSOLUTE AUTO 1.05 K/mm3 (0.16-1.47); MONOCYTES PERCENT AUTO 10 % (4-13); Mean Corpuscular HGB Conc 33.8 g/dL (31.5-36.5); Mean Corpuscular Volume 95 fL (80-100); NEUTROPHILS PERCENT AUTO 73 % (41-73); Platelet Count 319 K/mm3 (150-400); RDW Coefficient Variation 12.5 % (11.7-14.2); RDW Standard Deviation 43.5 fL (35.1-46.3); White Blood Cell Count 10.47 K/mm3 (4.00-11.30)
--- NOTE | 2018-08-14 18:50 | NUR ---
SUMMARY PT CONTINUES TO HAVE PAIN WITH MILD NAUSEA. CT SCAN WAS DONE TODAY. PAIN AND NAUSEA MEDICATED PER EMAR PRN. PT IS AMBULATING IN HALLS INDEPENDENTLY X4. ON ROOM AIR. WCTM .
--- NOTE | 2018-08-15 05:51 | NUR ---
SUMMARY: NO CHANGE TONIGHT. PT HAS DENIED N/V, PAIN. SLEPT WELL, VSS. UP INDPENDENTLY TO BATHROOM, SURGICAL SITE WNL. A/O
--- NOTE | 2018-08-15 10:04 | NUR ---
PT TO OR AT 1004.
--- NOTE | 2018-08-16 04:42 | NUR ---
SUMMARY: NO ACUTE CHANGE TONIGHT, VSS, A/O. PT HAS HAD MORE PAIN TONIGHT MEDICATED X3 PER EMAR. HAS DENIED N/V. SURGICAL SITE WNL. NEW IV TO R UPPER ARM, CLINIMIX AND LIPIDS INFUSING. NO SAFETY CONCERNS.
[2018-08-16 04:54] LABS: Albumin, Blood 3.4 g/dL (3.4-5.0); Bilirubin, Total 0.8 mg/dL (0.1-1.0); Bun/Creatinine Ratio 22.1 (12.0-20.0); Calcium, Blood 8.5 mg/dL (8.5-10.1); Creatinine, Blood 1.36 mg/dL (0.60-1.20); Globulin, Blood 3.3 g/dL (2.2-4.0); Magnesium, Blood 2.1 mg/dL (1.6-2.4); Phosphorus, Blood 3.3 mg/dL (2.5-4.9); Total Protein, Blood 6.7 g/dL (6.4-8.2)
--- NOTE | 2018-08-16 17:48 | NUR ---
SHIFT SUMMARY PT POD10 EX LAP. PREVENA DRESSING IN PLACE, NO LEAKS. PT AMBULATING INDEPENDENTLY THROUGH HALLS, PASSING GAS, BM'S DURING SHIFT. CLINIMIX AND LIPIDS INFUSING. PT MEDICATED WITH 1 TAB ROXYCODONE PT STATES PAIN HAS BEEN MANAGED. BP 92/59 AT 1630 HELD BP MEDS. POWERGLIDE DC'D LEFT UPPER ARM.
--- NOTE | 2018-08-17 04:00 | NUR ---
SUMMARY: NO ACUTE CHANGE TONIGHT. PT MEDICATED FOR PAIN WITH OXY X1, ABLE TO SLEEP. HAVING BMS. TOLERATING DIET, NO N/V THIS SHIFT. WOUND VAC WNL. VSS
[2018-08-17] MEDS ORDERED: OXYC5 PO (11:41)
[2018-08-17] MEDS ORDERED: SIME80CH PO (11:42)
--- NOTE | 2018-08-17 13:52 | NUR ---
PT DISCHARGED AT 1315 WITH FRIEND. DISCHARGE INSTRUCTIONS AND SCRIPT PROVIDED, PT DENIED ANY QUESTIONS OR CONCERNS. AMBULATING INDEPENDENTLY, PAIN WELL CONTROLLED, VOIDING AND STOOLING, AND TOLERATING DIET WELL.
== END 2018-08-17 13:20 | disposition home or self-care (01) | DRG 336 ==
LOC: ER 15:48 → MEDS 18:28 → SURS 20:46 → MEDS 21:29 → SURS 08-06 14:27
PROVIDERS: Nurse Practitioner Acute Care; Physician Assistant; Surgery; ADMIT Family Medicine
PROC: 0DN80ZZ Release Small Intestine, Open Approach (ICD-10-PCS; principal; 2018-08-06 11:59)
PROC: 0DNH0ZZ Release Cecum, Open Approach (ICD-10-PCS; 2018-08-06 11:59)
DX: K56.50 Intestinal adhesions [bands], unspecified as to partial versus complete obstruction (principal); N17.9 Acute kidney failure, unspecified; B37.0 Candidal stomatitis; I12.9 Hypertensive chronic kidney disease with stage 1 through stage 4 chronic kidney disease, or unspecified chronic kidney disease; N18.3 Chronic kidney disease, stage 3 (moderate); K21.9 Gastro-esophageal reflux disease without esophagitis; E86.0 Dehydration; E66.9 Obesity, unspecified; G47.33 Obstructive sleep apnea (adult) (pediatric); D45 Polycythemia vera; K76.0 Fatty (change of) liver, not elsewhere classified; Z87.11 Personal history of peptic ulcer disease; Z68.31 Body mass index [BMI] 31.0-31.9, adult; Z79.82 Long term (current) use of aspirin; Z79.899 Other long term (current) drug therapy
CPT/HCPCS: 36415; 74018; 74176; 74177; 80048; 80053; 82947; 83690; 83735; 84100; 84478; 85025; 85027; 85610; 94762; 96361; 96374; 96375; 96376; 97110; 97116; 97162; 97530; 99285-25; C1751; C9113; J0694; J1170; J1200; J1650; J2250; J2270; J2370; J2405; J2704; J2710; J3010; J7030; J7120; Q9967

== ENCOUNTER 2018-10-27 08:27 | Observation (INO) | payer MEDICARE ==
[~2018-10-27] VITALS: Ht 170.2 cm; Wt 101.8 kg
[~2018-10-27 08:27] MED LIST changes: -Aspirin EC81 MG PO; +LIDOCAINE5 GM TOP; +MIRALAX17 GM PO; +OXYC5 PO; +SIME80CH PO
[2018-10-27 10:07] LABS: BASOPHILS ABSOLUTE AUTO 0.02 K/mm3 (0.00-0.23); BASOPHILS PERCENT AUTO 0 % (0-2); EOSINOPHILS PERCENT AUTO 0 % (0-6); Hematocrit 52.4 % (37.0-53.0); Hemoglobin 17.7 g/dL (13.5-17.5); IMMATURE GRAN ABSOLUTE AUTO 0.04 K/mm3 (0.00-0.10); IMMATURE GRAN PERCENT AUTO 0 % (0-1); LYMPHOCYTES ABSOLUTE AUTO 0.97 K/mm3 (0.84-5.20); LYMPHOCYTES PERCENT AUTO 9 % (21-46); MONOCYTES ABSOLUTE AUTO 0.34 K/mm3 (0.16-1.47); MONOCYTES PERCENT AUTO 3 % (4-13); Mean Corpuscular HGB 32.2 pg (26.0-34.0); Mean Corpuscular HGB Conc 33.8 g/dL (31.5-36.5); Mean Corpuscular Volume 95 fL (80-100); Mean Platelet Volume 9.3 fL (9.1-12.4); NEUTROPHILS ABSOLUTE AUTO 9.63 K/mm3 (1.96-9.15); NEUTROPHILS PERCENT AUTO 88 % (41-73); Platelet Count 344 K/mm3 (150-400); RDW Coefficient Variation 13.2 % (11.7-14.2); RDW Standard Deviation 46.7 fL (35.1-46.3); Red Blood Cell Count 5.49 M/mm3 (4.30-5.90)
[2018-10-27 10:31] LABS: Albumin/Globulin Ratio 1.4 (0.8-1.8); Bilirubin, Total 1.3 mg/dL (0.1-1.0); Calcium, Blood 10.2 mg/dL (8.5-10.1); Creatinine, Blood 2.07 mg/dL (0.60-1.20); Globulin, Blood 3.6 g/dL (2.2-4.0); Potassium, Blood 4.7 mmol/L (3.5-5.5); Total Protein, Blood 8.6 g/dL (6.4-8.2)
[2018-10-27] MEDS ORDERED: AMLO10 PO (13:15)
[2018-10-27] MEDS ORDERED: CARV6.25 PO (13:15)
[2018-10-27] MEDS ORDERED: Zantac150 MG PO (13:16)
[2018-10-27] MEDS ORDERED: Aspirin EC81 MG PO (13:16)
[2018-10-27] MEDS ORDERED: LISI20 PO (13:17)
[2018-10-27] MEDS ORDERED: DOCU100 PO (13:17)
[2018-10-27] MEDS ORDERED: METAMUCIL POWD575 GM PO (13:19)
--- NOTE | 2018-10-27 15:31 | NUR ---
PT ARRIVED TO THE MEDICAL FLOOR FROM THE ER AROUND 1500, A/OX3, PLEASANT AND COOPERATIVE, THE PT APPEARS TO BE BREATHING EASILY ON RA AT THIS TIME, PT WAS MEDICATED FOR PAIN, PT WAS ORIENTED TO THE ROOM LAYOUT AND CALL SYSTEM
--- NOTE | 2018-10-27 16:58 | NUR ---
PT IS A/OX3, PLEASANT AND COOPERATIVE, THE PT IS UP IND IN HIS ROOM, THE PT WAS MEDICATED FOR PAIN X1 SO FAR THIS SHIFT, THE PT APPEARS TO BE BREATHING EASILY ON RA AT THIS TIME, ABD IS DISTENEDED HOWEVER BT'S ARE POSITIVE IN ALL QUADRANTS, THE PT DENIES N/V AT THIS TIME, CALL LIGHT IN REACH WILL CONTINUE TO MONITOR AND ASSESS FOR CHANGES
[2018-10-27 18:36] LABS: Source, Urine Clean Catch
[2018-10-27 18:38] LABS: Bilirubin, Urine Neg (Neg); Blood, Urine Neg (Neg); Glucose Qualitative, Urine Neg (Neg); Ketones, Urine Neg (Neg); Leukocyte Esterase, Urine Neg (Neg); Nitrite, Urine Neg (Neg); Protein, Urine 1+ (Neg); Urobilinogen, Urine NORM (Normal)
[2018-10-27 18:45] LABS: Appearance, Urine Clear (Clear); Color, Urine Yellow (P-Yellow)
[2018-10-28 00:07] LABS: Adenovirus F 40/41 Not Detected (NOT DETECT); Astrovirus Not Detected (NOT DETECT); Campylobacter Sp Not Detected (NOT DETECT); Cryptosporidium Not Detected (NOT DETECT); Cyclospora Cayetanensis Not Detected (NOT DETECT); E. Coli O157 Not Detected (NOT DETECT); Entamoeba Histolytica Not Detected (NOT DETECT); Enteroaggregative E. coli-EAEC Not Detected (NOT DETECT); Enteropathogenic E. coli-EPEC Not Detected (NOT DETECT); Enterotoxigenic E. coli-ETEC Not Detected (NOT DETECT); Giardia Lamblia Not Detected (NOT DETECT); Norovirus GI/GII Not Detected (NOT DETECT); Plesiomonas Shigelloides Not Detected (NOT DETECT); Rotavirus A Not Detected (NOT DETECT); Salmonella Sp Not Detected (NOT DETECT); Shiga Toxin-prod E. coli-STEC Not Detected (NOT DETECT); Shigella/Enteroin E. coli-EIEC Not Detected (NOT DETECT); Vibrio Cholerae Not Detected (NOT DETECT); Vibrio Sp Not Detected (NOT DETECT); Yersinia Enterocolitica Not Detected (NOT DETECT)
[2018-10-28 00:08] LABS: Sapovirus Not Detected (NOT DETECT)
[2018-10-28 04:57] LABS: Hematocrit 42.7 % (37.0-53.0); Hemoglobin 14.1 g/dL (13.5-17.5); Mean Corpuscular HGB 32.6 pg (26.0-34.0); Mean Platelet Volume 9.8 fL (9.1-12.4); Platelet Count 224 K/mm3 (150-400); RDW Coefficient Variation 12.9 % (11.7-14.2); RDW Standard Deviation 47.3 fL (35.1-46.3); Red Blood Cell Count 4.33 M/mm3 (4.30-5.90); White Blood Cell Count 7.51 K/mm3 (4.00-11.30)
[2018-10-28 05:03] LABS: Mean Corpuscular Volume 99 fL (80-100)
[2018-10-28 05:22] LABS: Albumin, Blood 3.3 g/dL (3.4-5.0); Albumin/Globulin Ratio 1.2 (0.8-1.8); Bilirubin, Total 0.9 mg/dL (0.1-1.0); Bun/Creatinine Ratio 15.9 (12.0-20.0); Creatinine, Blood 1.38 mg/dL (0.60-1.20); Globulin, Blood 2.7 g/dL (2.2-4.0); Potassium, Blood 4.1 mmol/L (3.5-5.5)
[2018-10-28 05:30] LABS: Calcium, Blood 8.1 mg/dL (8.5-10.1)
--- NOTE | 2018-10-28 05:51 | NUR ---
10/28/18 0545 SLEPT WELL THIS SHIFT. MEDICATED ONCE FOR GENERAL ABDOMINAL DISCOMFORT. NO NAUSEA OR VOMITING. HAD ONE LIQUID BROWN BM AND IT WAS SENT TO LAB. VITALS STABLE.
[2018-10-28] MEDS ORDERED: SIME80CH PO (11:15)
--- NOTE | 2018-10-28 12:01 | NUR ---
PT DISCHARGED THE PT VERBALIZED UNDERSTANDING OF THE DC INSTRUCTIONS, THE PT SA[facility] THAT [facility]ED[facility], THE PTS PERSCRIPTION IS AN OVER THE COUNTER MEDICATION AND HE OPTED TO JUST PICK IT UP AT THE STORE [facility] THAN [facility], THE PT DECLINED A WHELLCHAIR AND AMBULATED OUT ACCOMPANIED BY HIS SON STEADY ON HIS FEET APPEARED TO BE BREATHING EASILY ON RA
== END 2018-10-28 11:59 | disposition home or self-care (01) ==
LOC: ER 08:27 → MEDS 08:28 → ENPENDDIS 10-28 10:47 → MEDS 10-28 11:59
PROVIDERS: Emergency Medicine; ADMIT Family Medicine
DX: K52.9 Noninfective gastroenteritis and colitis, unspecified (principal); E66.9 Obesity, unspecified; K21.9 Gastro-esophageal reflux disease without esophagitis; I12.9 Hypertensive chronic kidney disease with stage 1 through stage 4 chronic kidney disease, or unspecified chronic kidney disease; N18.3 Chronic kidney disease, stage 3 (moderate); K56.609 Unspecified intestinal obstruction, unspecified as to partial versus complete obstruction; D75.1 Secondary polycythemia; K76.0 Fatty (change of) liver, not elsewhere classified; Z79.01 Long term (current) use of anticoagulants; Z87.11 Personal history of peptic ulcer disease; Z79.82 Long term (current) use of aspirin; Z79.899 Other long term (current) drug therapy; Z68.35 Body mass index [BMI] 35.0-35.9, adult
CPT/HCPCS: 0097U; 36415; 74176; 80053; 83605; 83690; 83735; 84145; 84484; 85025; 85027; 93005; 93010; 96361; 96372; 96374; 96375; 96376; 99285-25; A9270; G0378; J1170; J1650; J2270; J2405; J7030

== ENCOUNTER 2019-02-02 12:08 | Emergency (ER) | payer MEDICARE ==
[~2019-02-02] VITALS: Ht 170.2 cm; Wt 102.1 kg
[~2019-02-02 12:08] MED LIST changes: +Aspirin EC81 MG PO; +CARV6.25 PO; +METAMUCIL POWD575 GM PO; +Zantac150 MG PO
[2019-02-02 12:32] LABS: BASOPHILS ABSOLUTE AUTO 0.03 K/mm3 (0.00-0.23); BASOPHILS PERCENT AUTO 1 % (0-2); EOSINOPHILS ABSOLUTE AUTO 0.08 K/mm3 (0.00-0.68); EOSINOPHILS PERCENT AUTO 2 % (0-6); Hemoglobin 16.4 g/dL (13.5-17.5); IMMATURE GRAN ABSOLUTE AUTO 0.01 K/mm3 (0.00-0.10); IMMATURE GRAN PERCENT AUTO 0 % (0-1); LYMPHOCYTES ABSOLUTE AUTO 1.08 K/mm3 (0.84-5.20); LYMPHOCYTES PERCENT AUTO 22 % (21-46); MONOCYTES ABSOLUTE AUTO 0.39 K/mm3 (0.16-1.47); MONOCYTES PERCENT AUTO 8 % (4-13); Mean Corpuscular HGB 31.9 pg (26.0-34.0); Mean Corpuscular HGB Conc 33.5 g/dL (31.5-36.5); Mean Corpuscular Volume 95 fL (80-100); Mean Platelet Volume 9.4 fL (9.1-12.4); NEUTROPHILS ABSOLUTE AUTO 3.35 K/mm3 (1.96-9.15); NEUTROPHILS PERCENT AUTO 68 % (41-73); Platelet Count 261 K/mm3 (150-400); RDW Coefficient Variation 12.2 % (11.7-14.2); RDW Standard Deviation 43.1 fL (35.1-46.3); Red Blood Cell Count 5.14 M/mm3 (4.30-5.90); White Blood Cell Count 4.94 K/mm3 (4.00-11.30)
[2019-02-02 12:59] LABS: Albumin, Blood 4.3 g/dL (3.4-5.0); Albumin/Globulin Ratio 1.2 (0.8-1.8); Bun/Creatinine Ratio 11.8 (12.0-20.0); Calcium, Blood 9.2 mg/dL (8.5-10.1); Creatinine, Blood 1.36 mg/dL (0.60-1.20); Globulin, Blood 3.5 g/dL (2.2-4.0); Potassium, Blood 4.2 mmol/L (3.5-5.5); Total Protein, Blood 7.8 g/dL (6.4-8.2)
[2019-02-02] MEDS ORDERED: Esgic Tablet1 EACH PO (17:18)
== END 2019-02-02 17:25 | disposition home or self-care (01) ==
LOC: ER 12:08
PROVIDERS: Physician Assistant
DX: G44.209 Tension-type headache, unspecified, not intractable (principal); G43.909 Migraine, unspecified, not intractable, without status migrainosus; Z79.899 Other long term (current) drug therapy; Z79.82 Long term (current) use of aspirin; I10 Essential (primary) hypertension; K21.9 Gastro-esophageal reflux disease without esophagitis
CPT/HCPCS: 36415; 70450; 80053; 85025; 96361; 96374; 96375; 99284-25; J0780; J1200; J1885; J7030

== ENCOUNTER 2019-06-11 09:10 | Observation (INO) | payer OTHER ==
[~2019-06-11] VITALS: Ht 170.2 cm; Wt 101.1 kg
[~2019-06-11 09:10] MED LIST changes: -CARV6.25 PO; +Coreg12.5 MG PO; +Esgic Tablet1 EACH PO; +FAMO40 PO; +LEVSOD75 PO; +LISI20; +MOBIC15 MG PO; +Norco 10-325 T1 EACH PO; +SIMV80 PO
[2019-06-11 10:37] LABS: BASOPHILS ABSOLUTE AUTO 0.05 K/mm3 (0.00-0.23); BASOPHILS PERCENT AUTO 1 % (0-2); EOSINOPHILS PERCENT AUTO 1 % (0-6); Hemoglobin 17.9 g/dL (13.5-17.5); IMMATURE GRAN ABSOLUTE AUTO 0.03 K/mm3 (0.00-0.10); IMMATURE GRAN PERCENT AUTO 0 % (0-1); LYMPHOCYTES ABSOLUTE AUTO 1.51 K/mm3 (0.84-5.20); LYMPHOCYTES PERCENT AUTO 19 % (21-46); MONOCYTES PERCENT AUTO 9 % (4-13); Mean Corpuscular HGB Conc 33.8 g/dL (31.5-36.5); Mean Corpuscular Volume 95 fL (80-100); Mean Platelet Volume 9.2 fL (9.1-12.4); NEUTROPHILS ABSOLUTE AUTO 5.47 K/mm3 (1.96-9.15); NEUTROPHILS PERCENT AUTO 70 % (41-73); Platelet Count 302 K/mm3 (150-400); RDW Coefficient Variation 12.1 % (11.7-14.2); RDW Standard Deviation 42.6 fL (35.1-46.3); Red Blood Cell Count 5.59 M/mm3 (4.30-5.90); White Blood Cell Count 7.86 K/mm3 (4.00-11.30)
[2019-06-11 10:56] LABS: Albumin, Blood 4.3 g/dL (3.4-5.0); Albumin/Globulin Ratio 1.2 (0.8-1.8); Bilirubin, Total 1.7 mg/dL (0.1-1.0); Bun/Creatinine Ratio 15.1 (12.0-20.0); Calcium, Blood 9.7 mg/dL (8.5-10.1); Creatinine, Blood 2.05 mg/dL (0.60-1.20); Globulin, Blood 3.5 g/dL (2.2-4.0); Potassium, Blood 4.6 mmol/L (3.5-5.5); Total Protein, Blood 7.8 g/dL (6.4-8.2)
[2019-06-11] MEDS ORDERED: AMLO10 PO (12:42)
[2019-06-11] MEDS ORDERED: POLYETHYLENE G500 G1 PO (15:34)
[2019-06-11] MEDS ORDERED: HYDCOR2.5C PR (15:35)
--- NOTE | 2019-06-11 19:40 | NUR ---
SHIFT SUMMARY- PT ADMITTED THROUGH THE ED FOR ACUTE CHOLITIS. PT HAD A SMALL C/O PAIN MEDICATED WITH TYLENOL AND THAT SEEMED TO HELP THE PT. PT STATED IT REALLY WORKED. PT HAS AN EXTENSIVE GI Hx WITH SBO'S AND PAST SURGERY. SCARS ARE PRESENT ON THE ABDOMEN. NO OTHER SKIN ISSUES WERE NOTED ON ADMIT. PT PLACED IN ISOLATION FOR R/O C-DIFF C-DIFF SAMPLE WAS ORDERED. PT HAS NOT YET HAD A BM SINCE ADMIT, STILL AWAITING SAMPLE. PASSED ON TO NIGHT RN.
--- NOTE | 2019-06-11 21:53 | NUR ---
GI PANEL COLLECTED AND SENT TO LAB
[2019-06-11 23:23] LABS: Adenovirus F 40/41 Not Detected (NOT DETECT); Astrovirus Not Detected (NOT DETECT); Campylobacter Sp Not Detected (NOT DETECT); Cryptosporidium Not Detected (NOT DETECT); Cyclospora Cayetanensis Not Detected (NOT DETECT); E. Coli O157 Not Detected (NOT DETECT); Entamoeba Histolytica Not Detected (NOT DETECT); Enteroaggregative E. coli-EAEC Not Detected (NOT DETECT); Enteropathogenic E. coli-EPEC Not Detected (NOT DETECT); Enterotoxigenic E. coli-ETEC Not Detected (NOT DETECT); Giardia Lamblia Not Detected (NOT DETECT); Norovirus GI/GII Not Detected (NOT DETECT); Plesiomonas Shigelloides Not Detected (NOT DETECT); Rotavirus A Not Detected (NOT DETECT); Salmonella Sp Not Detected (NOT DETECT); Sapovirus Not Detected (NOT DETECT); Shiga Toxin-prod E. coli-STEC Not Detected (NOT DETECT); Shigella/Enteroin E. coli-EIEC Not Detected (NOT DETECT); Vibrio Cholerae Not Detected (NOT DETECT); Vibrio Sp Not Detected (NOT DETECT); Yersinia Enterocolitica Not Detected (NOT DETECT)
--- NOTE | 2019-06-12 03:53 | NUR ---
SHIFT SUMMARY PATIENT HAD NO ACUTE CHANGE OBSERVED. AXOX 3 AND INDEPENDENT IN ROOM. REPORTED N/V X ONE AND ZOFRAN GIVEN PER EMAR. REPORTED ABDOMINAL PAIN AND BERTRAND RECEIVING TYLENOL PER EMAR. VSS/AFEBRILE. DENIES SOB. TAKES MEDICATION WHOLE WITH WATER. PIV REMAINS INTACT. NS INFUSING AT 125 mL/HR BAG 2/2. COOPERATIVE WITH CARE. CALL LIGHT IN REACH. BED IN LOWEST POSITION. WILL CONTINUE TO MONITOR UNTIL DAY SHIFT NURSE ASSUMES CARE.
[2019-06-12 04:52] LABS: BASOPHILS ABSOLUTE AUTO 0.03 K/mm3 (0.00-0.23); BASOPHILS PERCENT AUTO 1 % (0-2); EOSINOPHILS ABSOLUTE AUTO 0.08 K/mm3 (0.00-0.68); EOSINOPHILS PERCENT AUTO 1 % (0-6); Hematocrit 44.1 % (37.0-53.0); Hemoglobin 14.9 g/dL (13.5-17.5); IMMATURE GRAN ABSOLUTE AUTO 0.02 K/mm3 (0.00-0.10); IMMATURE GRAN PERCENT AUTO 0 % (0-1); LYMPHOCYTES ABSOLUTE AUTO 1.39 K/mm3 (0.84-5.20); LYMPHOCYTES PERCENT AUTO 24 % (21-46); MONOCYTES ABSOLUTE AUTO 0.78 K/mm3 (0.16-1.47); MONOCYTES PERCENT AUTO 13 % (4-13); Mean Corpuscular HGB 32.2 pg (26.0-34.0); Mean Corpuscular HGB Conc 33.8 g/dL (31.5-36.5); Mean Corpuscular Volume 95 fL (80-100); Mean Platelet Volume 9.4 fL (9.1-12.4); NEUTROPHILS ABSOLUTE AUTO 3.55 K/mm3 (1.96-9.15); NEUTROPHILS PERCENT AUTO 61 % (41-73); Platelet Count 204 K/mm3 (150-400); RDW Coefficient Variation 11.9 % (11.7-14.2); RDW Standard Deviation 41.1 fL (35.1-46.3); Red Blood Cell Count 4.63 M/mm3 (4.30-5.90); White Blood Cell Count 5.85 K/mm3 (4.00-11.30)
[2019-06-12 05:16] LABS: Bun/Creatinine Ratio 15.6 (12.0-20.0); Creatinine, Blood 1.54 mg/dL (0.60-1.20); Potassium, Blood 3.9 mmol/L (3.5-5.5)
--- NOTE | 2019-06-12 17:25 | NUR ---
SHIFT SUMMARY- PT ALERT, ORIENTED AND INDEPENDENT IN THE HALLS. PT HAS AMBULATED THE ENTIRE UNIT THREE TIMES TODAY. PT STATED HE HAD A BM AFTER EACH WALK EACH ONE INCREASING IN QUANTITY, PT STATES JENNIFER IS STILL LOOSE. PT C/O SOME ABDOMINAL DISCOMFORT THIS EVENING THAT FELT LIKE GAS AND WAS GIVEN THE SIMETHICONE CHEWS. WILL CTM. PT NO LONGER ON IV FLUIDS, TYLENOL IS MANAGING THE PAIN APPROPRIATELY (PER THE PT). PT HAS HAD NO ACUTE CHANGES T/O THE SHIFT. PT LAYING IN BED CALL LIGHT IN REACH DINNER SHOULD ARRIVE SOON; PT ON CLEAR LIQUID, DIET SEEMS TO TOLLERATE WELL. WILL CTM AND PASS ON IN BEDSIDE REPORT TO NIGHT RN.
--- NOTE | 2019-06-13 03:24 | NUR ---
SHIFT SUMMARY PATIENT HAD NO ACUTE CHANGES OBSERVED. AXOX 4 AND INDEPENDENT IN ROOM. VSS/AFEBRILE. DENIES PAIN, SOB, AND N/V. CLEAR LIQUID DIET. USES URINAL AT BEDSIDE. PIV REMAINS INTACT. PATIENT ABLE TO SLEEP T/O SHIFT. COOPERATIVE WITH CARE. CALL LIGHT IN REACH. BED IN LOWEST POSITION. WILL CONTINUE TO MONITOR UNTIL DAY SHIFT NURSE ASSUMES CARE.
[2019-06-13 06:16] LABS: Albumin, Blood 3.7 g/dL (3.4-5.0); Anion Gap 3 mmol/L (6-16); Blood Urea Nitrogen 14 mg/dL (8-24); Bun/Creatinine Ratio 10.9 (12.0-20.0); CO2, Blood 25 mmol/L (21-32); Calcium, Blood 8.6 mg/dL (8.5-10.1); Chloride, Blood 108 mmol/L (98-108); Creatinine, Blood 1.28 mg/dL (0.60-1.20); Glomerular Filtration Rate 59 (60-); Glucose, Blood 115 mg/dL (70-99); Phosphorus, Blood 2.9 mg/dL (2.5-4.9); Potassium, Blood 3.7 mmol/L (3.5-5.5); Sodium, Blood 136 mmol/L (136-145)
[2019-06-13] MEDS ORDERED: ONDA4ODT MM (11:39)
[2019-06-13] MEDS ORDERED: ACET325 PO (11:39)
--- NOTE | 2019-06-13 13:46 | NUR ---
SPOKE TO DR ANNA- SHE REVIEWED THE PT'S X-RAY. PT OK TO DC HOME TODAY.
--- NOTE | 2019-06-13 14:06 | NUR ---
DISCHARGE NOTE- PT WAS GIVEN VERBAL AND WRITTEN DISCHARGE INSTRUCTIONS AND ACKNOWLEDGED UNDERSTANDING OF THEM. PT MEDS WERE FAXED TO [facility] IN [place] PER PT REQUEST. PT PLACED ON THE LIST FR CARE MANAGEMENT TO ARRANGE THE FOLLOW UP APPOINTMENT. PT WAS INSTRUCTED TO STAY ON A FULL LIQUID DIET FOR THREE MORE DAYS BEFORE ADVANCING HIS DIET TOLLERATED; TALKED ABOUT THE FULL LIQUID DIET AND WHAT THAT INCLUDES. PT DENIED ANY PAIN OR NAUSEA. PT DECLINED WC AND WAS ESCORTED OUT BY THE HYDROPULPER OPERATOR. FAMILY PRESENT AT THE TIME OF DISCHARGE. NO FURTHER QUESTIONS AT THE TIME OF DISCHARGE IV DC'D PRIOR TO DISCHARGE.
== END 2019-06-13 14:03 | disposition home or self-care (01) ==
LOC: ER 09:10 → MEDS 09:11 → ER 12:47 → MEDS 12:47
PROVIDERS: Emergency Medicine; Internal Medicine; ADMIT Internal Medicine
DX: K52.9 Noninfective gastroenteritis and colitis, unspecified (principal); E86.0 Dehydration; N17.9 Acute kidney failure, unspecified; I12.9 Hypertensive chronic kidney disease with stage 1 through stage 4 chronic kidney disease, or unspecified chronic kidney disease; N18.3 Chronic kidney disease, stage 3 (moderate); E66.9 Obesity, unspecified; G47.33 Obstructive sleep apnea (adult) (pediatric); K56.609 Unspecified intestinal obstruction, unspecified as to partial versus complete obstruction; K21.9 Gastro-esophageal reflux disease without esophagitis; Z87.11 Personal history of peptic ulcer disease; Z79.82 Long term (current) use of aspirin; Z79.899 Other long term (current) drug therapy
CPT/HCPCS: 0097U; 36415; 74018; 74176; 80048; 80053; 80069; 83690; 85025; 90686; 96361; 96372; 96374; 96375; 99285-25; A9270; G0378; J1650; J2405; J3010; J7030

== ENCOUNTER 2019-07-09 12:55 | Inpatient (IN) | payer OTHER ==
[~2019-07-09] VITALS: Ht 170.2 cm; Wt 104.9 kg
[~2019-07-09 12:55] MED LIST changes: +ACET325 PO; +HYDCOR2.5C PR; +ONDA4ODT MM; +POLYETHYLENE G500 G1 PO
[2019-07-09 13:43] LABS: BASOPHILS ABSOLUTE AUTO 0.04 K/mm3 (0.00-0.23); BASOPHILS PERCENT AUTO 0 % (0-2); EOSINOPHILS ABSOLUTE AUTO 0.04 K/mm3 (0.00-0.68); EOSINOPHILS PERCENT AUTO 0 % (0-6); Hematocrit 53.9 % (37.0-53.0); Hemoglobin 18.1 g/dL (13.5-17.5); IMMATURE GRAN ABSOLUTE AUTO 0.02 K/mm3 (0.00-0.10); IMMATURE GRAN PERCENT AUTO 0 % (0-1); LYMPHOCYTES PERCENT AUTO 12 % (21-46); MONOCYTES ABSOLUTE AUTO 0.85 K/mm3 (0.16-1.47); MONOCYTES PERCENT AUTO 8 % (4-13); Mean Corpuscular HGB 32.2 pg (26.0-34.0); Mean Corpuscular HGB Conc 33.6 g/dL (31.5-36.5); Mean Corpuscular Volume 96 fL (80-100); Mean Platelet Volume 9.1 fL (9.1-12.4); NEUTROPHILS PERCENT AUTO 79 % (41-73); Platelet Count 316 K/mm3 (150-400); RDW Coefficient Variation 12.6 % (11.7-14.2); RDW Standard Deviation 44.1 fL (35.1-46.3); Red Blood Cell Count 5.62 M/mm3 (4.30-5.90); White Blood Cell Count 10.75 K/mm3 (4.00-11.30)
[2019-07-09 14:00] LABS: Albumin, Blood 4.4 g/dL (3.4-5.0); Albumin/Globulin Ratio 1.2 (0.8-1.8); Bilirubin, Total 0.8 mg/dL (0.1-1.0); Bun/Creatinine Ratio 16.2 (12.0-20.0); Calcium, Blood 9.7 mg/dL (8.5-10.1); Creatinine, Blood 1.98 mg/dL (0.60-1.20); Globulin, Blood 3.6 g/dL (2.2-4.0); Potassium, Blood 4.4 mmol/L (3.5-5.5)
--- NOTE | 2019-07-09 17:16 | NUR ---
SHIFT SUMMARY PT A&OX4, VSS, NPO, BIOX AT BEDSIDE, KPAD AND SCDS ON. STAND/PIVOT TO BED FROM ER ADMIT. ABD PAIN MANAGED WITH 2.5 MG MORPHINE. ABD MOD DISTENDED, TENDER. NAUSEA TREATED WITH ZOFRAN; PT NOW DENIES N&V. IV RUE, IVF INFUSING 100 MLS/HR. CALL LIGHT WITHIN REACH; PT REP UNDERSTANDING HOW TO USE. WILL REPORT TO ONCOMING RN.
[2019-07-10 04:22] LABS: BASOPHILS ABSOLUTE AUTO 0.05 K/mm3 (0.00-0.23); BASOPHILS PERCENT AUTO 1 % (0-2); EOSINOPHILS ABSOLUTE AUTO 0.08 K/mm3 (0.00-0.68); EOSINOPHILS PERCENT AUTO 1 % (0-6); Hematocrit 44.1 % (37.0-53.0); Hemoglobin 14.7 g/dL (13.5-17.5); IMMATURE GRAN ABSOLUTE AUTO 0.02 K/mm3 (0.00-0.10); IMMATURE GRAN PERCENT AUTO 0 % (0-1); LYMPHOCYTES ABSOLUTE AUTO 1.69 K/mm3 (0.84-5.20); LYMPHOCYTES PERCENT AUTO 26 % (21-46); MONOCYTES ABSOLUTE AUTO 0.69 K/mm3 (0.16-1.47); MONOCYTES PERCENT AUTO 11 % (4-13); Mean Corpuscular HGB 32.7 pg (26.0-34.0); Mean Corpuscular HGB Conc 33.3 g/dL (31.5-36.5); Mean Corpuscular Volume 98 fL (80-100); Mean Platelet Volume 9.5 fL (9.1-12.4); NEUTROPHILS ABSOLUTE AUTO 4.07 K/mm3 (1.96-9.15); NEUTROPHILS PERCENT AUTO 62 % (41-73); Platelet Count 209 K/mm3 (150-400); RDW Coefficient Variation 12.5 % (11.7-14.2); RDW Standard Deviation 44.9 fL (35.1-46.3)
--- NOTE | 2019-07-10 04:40 | NUR ---
SHIFT SUMMARY: PT REPORTS FEELING MUCH BETTER THIS MORNING. MEDICATED WITH IV MORPHINE ONCE THIS SHIFT. ALSO GIVEN COMPAZINE FOR C/O OF NAUSEA. RESTING MOST OF SHIFT. NPO WITH FLUIDS INFUSING. ABD DISTENDED AND FIRM. PT REPORTS PASSING FLATUS. WILL ENC PATIENT TO AMBULATE TODAY.
[2019-07-10 04:55] LABS: Magnesium, Blood 2.2 mg/dL (1.6-2.4)
[2019-07-10 04:58] LABS: Albumin, Blood 3.3 g/dL (3.4-5.0); Albumin/Globulin Ratio 1.3 (0.8-1.8); Bun/Creatinine Ratio 16.1 (12.0-20.0); Calcium, Blood 8.5 mg/dL (8.5-10.1); Creatinine, Blood 1.68 mg/dL (0.60-1.20); Globulin, Blood 2.6 g/dL (2.2-4.0); Potassium, Blood 4.4 mmol/L (3.5-5.5); Total Protein, Blood 5.9 g/dL (6.4-8.2)
--- NOTE | 2019-07-10 08:12 | NUR ---
DENIES ANY PAIN OR NAUSEA AT THIS TIME, STATES HE SLEPT WELL LAST NIGHT, REPORTS HAVING SLIGHT BLOATING, ENCOURAGED OOB TO CHAIR AND TO AMBULATE, MONITOR FOR ANY CHANGES MEDICATE FOR PAIN PRN.
--- NOTE | 2019-07-10 18:37 | NUR ---
SUMMARY REPORTS PASSING FLATUS TODAY, MEDICATED X1 FOR ABD "CRAMPING", AMBULATED DOWN THE HALLS X2, DENIES ANY NAUSEA, NPO, NO ACUTE CHANGES THIS SHIFT.
--- NOTE | 2019-07-11 06:16 | NUR ---
PT VSS T/O NIGHT. BT HYPO, PT PASSING SMALL AMT FLATUS, REP ABD DISTENTION NEAR BASELINE. MED FOR PAIN X1 THSI SHIFT, NO C/O N/V. PT NPO, IVF CONT PER ORDERS. PT AMB INDEP IN HALLS, OBDULIA WELL. PT USING CALL LIGHT FOR ASSISTANCE, WILL CONT TO MONITOR UNTIL REP GIVEN TO ONCOMING RN.
== END 2019-07-11 15:01 | disposition home or self-care (01) | DRG 389 ==
LOC: ER 12:55 → SURS 12:56
PROVIDERS: Emergency Medicine; ADMIT Internal Medicine
DX: K56.609 Unspecified intestinal obstruction, unspecified as to partial versus complete obstruction (principal); N17.9 Acute kidney failure, unspecified; K21.9 Gastro-esophageal reflux disease without esophagitis; D75.1 Secondary polycythemia; I12.9 Hypertensive chronic kidney disease with stage 1 through stage 4 chronic kidney disease, or unspecified chronic kidney disease; N18.9 Chronic kidney disease, unspecified; G47.33 Obstructive sleep apnea (adult) (pediatric); E66.9 Obesity, unspecified; Z68.36 Body mass index [BMI] 36.0-36.9, adult
CPT/HCPCS: 36415; 74018; 74022; 80053; 83690; 83735; 85025; 94762; 96361; 96374; 96375; 99285-25; A9270; J0780; J1644; J2270; J2405; J2765; J3010; J7030

== ENCOUNTER → 2020-03-20 | Outpatient (CLI) | payer OTHER ==
[~2020-03-20] MED LIST changes: +ALMACONE SUSPE355 ML PO; +Aspir 8181 MG; +BISA10S PR; +Calcium Carbon500 MG PO; +METO10 PO; +Milk Of Ma400 MG/5 M PO; +VISBIOME 112.51 EACH PO
[2020-03-20 13:20] LABS: Creatinine Urine 35.6 mg/dL (27.00-270.00); Microalbumin, Urine Quant. 21.1 mg/L (0.000-20.000); Protein, Urine Quantitative 6.4 mg/dL (0.0-11.9)
== END | disposition home or self-care (01) ==
LOC: LAB 06:30 → LAB SHORT 06:30 → LAB FUT 03-16 09:15
PROVIDERS: Internal Medicine Nephrology
DX: N18.2 Chronic kidney disease, stage 2 (mild) (principal); D63.1 Anemia in chronic kidney disease; N25.81 Secondary hyperparathyroidism of renal origin; E55.9 Vitamin D deficiency, unspecified; E78.00 Pure hypercholesterolemia, unspecified; N40.1 Benign prostatic hyperplasia with lower urinary tract symptoms; D51.8 Other vitamin B12 deficiency anemias; D52.8 Other folate deficiency anemias; D50.9 Iron deficiency anemia, unspecified; R76.9 Abnormal immunological finding in serum, unspecified; R94.5 Abnormal results of liver function studies; R94.6 Abnormal results of thyroid function studies
CPT/HCPCS: 81050; 82043; 82570; 84156

== ENCOUNTER → 2020-10-04 | Outpatient (CLI) | payer OTHER ==
[2020-10-04 14:22] LABS: Microalbumin, Urine Quant. 17.4 mg/L (0.000-20.000); Protein, Urine Quantitative 14.6 mg/dL (0.0-11.9)
== END ==
LOC: LAB 10:30 → LAB SHORT 10:30
PROVIDERS: Internal Medicine Nephrology
DX: N18.30 Chronic kidney disease, stage 3 unspecified (principal); N25.81 Secondary hyperparathyroidism of renal origin; E55.9 Vitamin D deficiency, unspecified; E78.00 Pure hypercholesterolemia, unspecified; R76.9 Abnormal immunological finding in serum, unspecified; R94.5 Abnormal results of liver function studies; R94.6 Abnormal results of thyroid function studies; D51.8 Other vitamin B12 deficiency anemias; D52.8 Other folate deficiency anemias; D50.9 Iron deficiency anemia, unspecified; Z91.048 Other nonmedicinal substance allergy status
CPT/HCPCS: 81050; 82043; 82570; 84156

== ENCOUNTER 2021-01-27 09:02 | Emergency (ER) | payer MEDICARE ==
[~2021-01-27] VITALS: Ht 170.2 cm; Wt 104.3 kg
[2021-01-27] MEDS ORDERED: Norco 5-325 Ta1 EACH (10:12)
[2021-01-27] MEDS ORDERED: DOC250 PO (10:12)
[2021-01-27 10:15] LABS: BASOPHILS ABSOLUTE AUTO 0.06 K/mm3 (0.00-0.23); BASOPHILS PERCENT AUTO 1 % (0-2); EOSINOPHILS ABSOLUTE AUTO 0.09 K/mm3 (0.00-0.68); EOSINOPHILS PERCENT AUTO 1 % (0-6); Hematocrit 45.4 % (37.0-53.0); Hemoglobin 15.7 g/dL (13.5-17.5); IMMATURE GRAN ABSOLUTE AUTO 0.02 K/mm3 (0.00-0.10); IMMATURE GRAN PERCENT AUTO 0 % (0-1); LYMPHOCYTES ABSOLUTE AUTO 1.31 K/mm3 (0.84-5.20); LYMPHOCYTES PERCENT AUTO 16 % (21-46); MONOCYTES ABSOLUTE AUTO 0.88 K/mm3 (0.16-1.47); MONOCYTES PERCENT AUTO 11 % (4-13); Mean Corpuscular HGB 32.9 pg (26.0-34.0); Mean Corpuscular HGB Conc 34.6 g/dL (31.5-36.5); Mean Corpuscular Volume 95 fL (80-100); Mean Platelet Volume 9.2 fL (9.1-12.4); NEUTROPHILS ABSOLUTE AUTO 5.84 K/mm3 (1.96-9.15); NEUTROPHILS PERCENT AUTO 71 % (41-73); Platelet Count 245 K/mm3 (150-400); RDW Coefficient Variation 12.2 % (11.7-14.2); Red Blood Cell Count 4.77 M/mm3 (4.30-5.90)
[2021-01-27 10:38] LABS: Albumin, Blood 3.6 g/dL (3.4-5.0); Albumin/Globulin Ratio 0.9 (0.8-1.8); Bilirubin, Total 0.8 mg/dL (0.1-1.0); Bun/Creatinine Ratio 13.2 (12.0-20.0); Calcium, Blood 8.9 mg/dL (8.5-10.1); Creatinine, Blood 1.36 mg/dL (0.60-1.20); Globulin, Blood 3.8 g/dL (2.2-4.0); Potassium, Blood 4.6 mmol/L (3.5-5.5); Total Protein, Blood 7.4 g/dL (6.4-8.2)
[2021-01-27] MEDS ORDERED: Norco 5-325 Ta1 EACH PO (11:15)
== END 2021-01-27 11:35 | disposition home or self-care (01) ==
LOC: ER 09:02
PROVIDERS: Physician Assistant
DX: M70.22 Olecranon bursitis, left elbow (principal); I10 Essential (primary) hypertension; K21.9 Gastro-esophageal reflux disease without esophagitis; Z91.048 Other nonmedicinal substance allergy status; Z79.899 Other long term (current) drug therapy; Z79.82 Long term (current) use of aspirin
CPT/HCPCS: 36415; 73070; 80053; 85025; 96374; 99283-25; J1885

== ENCOUNTER 2021-03-09 16:09 | Emergency (ER) | payer MEDICARE ==
[~2021-03-09] VITALS: Ht 167.6 cm; Wt 106.1 kg
[~2021-03-09 16:09] MED LIST changes: +DOC250 PO; +Norco 5-325 Ta1 EACH
[2021-03-09 17:06] LABS: BASOPHILS ABSOLUTE AUTO 0.04 K/mm3 (0.00-0.23); BASOPHILS PERCENT AUTO 1 % (0-2); EOSINOPHILS ABSOLUTE AUTO 0.05 K/mm3 (0.00-0.68); EOSINOPHILS PERCENT AUTO 1 % (0-6); Hematocrit 49.2 % (37.0-53.0); Hemoglobin 16.6 g/dL (13.5-17.5); IMMATURE GRAN ABSOLUTE AUTO 0.03 K/mm3 (0.00-0.10); IMMATURE GRAN PERCENT AUTO 0 % (0-1); LYMPHOCYTES ABSOLUTE AUTO 1.51 K/mm3 (0.84-5.20); LYMPHOCYTES PERCENT AUTO 19 % (21-46); MONOCYTES ABSOLUTE AUTO 0.71 K/mm3 (0.16-1.47); MONOCYTES PERCENT AUTO 9 % (4-13); Mean Corpuscular HGB 32.9 pg (26.0-34.0); Mean Corpuscular HGB Conc 33.7 g/dL (31.5-36.5); Mean Corpuscular Volume 97 fL (80-100); NEUTROPHILS ABSOLUTE AUTO 5.72 K/mm3 (1.96-9.15); NEUTROPHILS PERCENT AUTO 71 % (41-73); Platelet Count 301 K/mm3 (150-400); RDW Coefficient Variation 12.6 % (11.7-14.2); RDW Standard Deviation 45.1 fL (35.1-46.3); Red Blood Cell Count 5.05 M/mm3 (4.30-5.90); White Blood Cell Count 8.06 K/mm3 (4.00-11.30)
[2021-03-09 17:28] LABS: Albumin, Blood 4.2 g/dL (3.4-5.0); Albumin/Globulin Ratio 1.3 (0.8-1.8); Bilirubin, Total 0.7 mg/dL (0.1-1.0); Bun/Creatinine Ratio 15.9 (12.0-20.0); Creatinine, Blood 1.57 mg/dL (0.60-1.20); Globulin, Blood 3.2 g/dL (2.2-4.0); Potassium, Blood 4.6 mmol/L (3.5-5.5); Total Protein, Blood 7.4 g/dL (6.4-8.2)
[2021-03-09 19:16] LABS: Source, Urine Clean Catch
[2021-03-09 19:19] LABS: Appearance, Urine Hazy (Clear); Bilirubin, Urine Neg (Neg); Blood, Urine 1+ (Neg); Color, Urine Yellow (P-Yellow); Glucose Qualitative, Urine Neg (Neg); Ketones, Urine Neg (Neg); Leukocyte Esterase, Urine Neg (Neg); Nitrite, Urine Neg (Neg); Protein, Urine 2+ (Neg); Specific Gravity, Urine 1.025 (1.003-1.022); Urobilinogen, Urine NORM (Normal)
[2021-03-09 19:26] LABS: Bacteria Few /hpf; Mucus Light (0-Heavy); Red Blood Cells, Urine 0-2 /hpf (0-2); Squamous Epithelial Cells Few /hpf (Few); White Blood Cells, Urine 0-2 /hpf (0-5)
== END 2021-03-09 21:05 | disposition home or self-care (01) ==
LOC: ER 16:09
PROVIDERS: Physician Assistant
DX: K52.9 Noninfective gastroenteritis and colitis, unspecified (principal); I10 Essential (primary) hypertension; K21.9 Gastro-esophageal reflux disease without esophagitis; Z88.8 Allergy status to other drugs, medicaments and biological substances; Z79.899 Other long term (current) drug therapy; Z79.82 Long term (current) use of aspirin
CPT/HCPCS: 36415; 74176; 80053; 81001; 83690; 85025; 96374; 99284-25; A9270; J2405

== ENCOUNTER → 2021-05-30 | Outpatient (CLI) | payer MEDICARE | END | disposition home or self-care (01) | LOC: LAB SHORT 17:47 | DX: M70.22 Olecranon bursitis, left elbow (principal) | CPT/HCPCS: 87070; 87075; 87205 ==

== ENCOUNTER 2021-06-14 15:41 | Emergency (ER) | payer MEDICARE ==
[~2021-06-14] VITALS: Ht 170.2 cm; Wt 104.8 kg
[2021-06-14 16:15] LABS: BASOPHILS ABSOLUTE AUTO 0.05 K/mm3 (0.00-0.23); BASOPHILS PERCENT AUTO 1 % (0-2); EOSINOPHILS ABSOLUTE AUTO 0.06 K/mm3 (0.00-0.68); EOSINOPHILS PERCENT AUTO 1 % (0-6); Hematocrit 43.4 % (37.0-53.0); Hemoglobin 14.7 g/dL (13.5-17.5); IMMATURE GRAN ABSOLUTE AUTO 0.02 K/mm3 (0.00-0.10); IMMATURE GRAN PERCENT AUTO 0 % (0-1); LYMPHOCYTES ABSOLUTE AUTO 1.49 K/mm3 (0.84-5.20); LYMPHOCYTES PERCENT AUTO 24 % (21-46); MONOCYTES ABSOLUTE AUTO 0.66 K/mm3 (0.16-1.47); MONOCYTES PERCENT AUTO 11 % (4-13); Mean Corpuscular HGB 32.2 pg (26.0-34.0); Mean Corpuscular HGB Conc 33.9 g/dL (31.5-36.5); Mean Corpuscular Volume 95 fL (80-100); Mean Platelet Volume 9.5 fL (9.1-12.4); NEUTROPHILS ABSOLUTE AUTO 3.89 K/mm3 (1.96-9.15); NEUTROPHILS PERCENT AUTO 63 % (41-73); Platelet Count 296 K/mm3 (150-400); RDW Coefficient Variation 12.3 % (11.7-14.2); RDW Standard Deviation 42.9 fL (35.1-46.3); Red Blood Cell Count 4.56 M/mm3 (4.30-5.90); White Blood Cell Count 6.17 K/mm3 (4.00-11.30)
[2021-06-14 16:32] LABS: Albumin, Blood 3.9 g/dL (3.4-5.0); Albumin/Globulin Ratio 1.3 (0.8-1.8); Bilirubin, Total 0.4 mg/dL (0.1-1.0); Calcium, Blood 8.4 mg/dL (8.5-10.1); Creatinine, Blood 1.69 mg/dL (0.60-1.20); Globulin, Blood 3.1 g/dL (2.2-4.0); Potassium, Blood 4.1 mmol/L (3.5-5.5)
[2021-06-14] MEDS ORDERED: ALMACONE SUSPE355 ML PO (20:30)
[2021-06-14] MEDS ORDERED: OMEP20ER PO (20:30)
== END 2021-06-14 20:56 | disposition home or self-care (01) ==
LOC: ER 15:41
PROVIDERS: Physician Assistant
DX: K21.9 Gastro-esophageal reflux disease without esophagitis (principal); I10 Essential (primary) hypertension; Z79.899 Other long term (current) drug therapy
CPT/HCPCS: 36415; 71046; 74177; 80053; 83690; 83880; 84484; 85025; 93005; 93010; 96374; 99284-25; A9270; J7030; Q9967

== ENCOUNTER 2021-10-12 10:48 | Inpatient (IN) | payer OTHER, MEDICARE ==
[~2021-10-12] VITALS: Ht 170.2 cm; Wt 100.4 kg
[2021-10-12 11:20] LABS: BASOPHILS ABSOLUTE AUTO 0.09 K/mm3 (0.00-0.23); BASOPHILS PERCENT AUTO 1 % (0-2); EOSINOPHILS ABSOLUTE AUTO 0.08 K/mm3 (0.00-0.68); EOSINOPHILS PERCENT AUTO 1 % (0-6); Hematocrit 51.9 % (37.0-53.0); Hemoglobin 18.1 g/dL (13.5-17.5); IMMATURE GRAN ABSOLUTE AUTO 0.05 K/mm3 (0.00-0.10); IMMATURE GRAN PERCENT AUTO 0 % (0-1); LYMPHOCYTES ABSOLUTE AUTO 1.51 K/mm3 (0.84-5.20); LYMPHOCYTES PERCENT AUTO 13 % (21-46); MONOCYTES ABSOLUTE AUTO 0.92 K/mm3 (0.16-1.47); MONOCYTES PERCENT AUTO 8 % (4-13); Mean Corpuscular HGB 32.4 pg (26.0-34.0); Mean Corpuscular HGB Conc 34.9 g/dL (31.5-36.5); Mean Corpuscular Volume 93 fL (80-100); Mean Platelet Volume 9.3 fL (9.1-12.4); NEUTROPHILS ABSOLUTE AUTO 8.67 K/mm3 (1.96-9.15); NEUTROPHILS PERCENT AUTO 77 % (41-73); Platelet Count 358 K/mm3 (150-400); RDW Coefficient Variation 12.1 % (11.7-14.2); Red Blood Cell Count 5.59 M/mm3 (4.30-5.90); White Blood Cell Count 11.32 K/mm3 (4.00-11.30)
[2021-10-12 11:40] LABS: Albumin, Blood 4.4 g/dL (3.4-5.0); Albumin/Globulin Ratio 1.2 (0.8-1.8); Bilirubin, Total 1.1 mg/dL (0.1-1.0); Bun/Creatinine Ratio 10.1 (12.0-20.0); Calcium, Blood 9.8 mg/dL (8.5-10.1); Creatinine, Blood 1.88 mg/dL (0.60-1.20); Globulin, Blood 3.8 g/dL (2.2-4.0); Potassium, Blood 5.1 mmol/L (3.5-5.5); Total Protein, Blood 8.2 g/dL (6.4-8.2)
--- NOTE | 2021-10-12 15:41 | NUR ---
SHIFT SUMMARY: SBO PATIENT ARRIVED FROM ER TODAY 10/12/21 AT 1500. PATIENT IS ALERT AND ORIENTED X4. VS ARE WNL AND IS ON RA. PATIENT REPORTS 8/10 ABD PAIN. HE WAS GIVEN 50 MCG OF FENT IV. HE IS AWARE HE IS NPO. NG TUBE WAS PLACED IN ER PRIOR TO ARRIVAL AND HAS GREEN/YELLOW OUTPUT. SUCTION IS SET TO LOW INTERMITTENT. IV FLUIDS ARE RUNNING. ABD HAS HYPERACTIVE BOWEL TONES. ABD IS TENDER TO TOUCH/PALPATATE. HE IS CURRENTLY LAYING IN BED WATCHING TV. CALL LIGHT WITHIN REACH. DR. COTO HAS BEEN NOTIFIED OF CONSULT.
[2021-10-12 17:55] LABS: Source, Urine Clean Catch
[2021-10-12 18:01] LABS: Appearance, Urine Hazy (Clear); Blood, Urine 1+ (Neg); Color, Urine Yellow (P-Yellow); Glucose Qualitative, Urine Neg (Neg); Ketones, Urine Neg (Neg); Leukocyte Esterase, Urine Neg (Neg); Nitrite, Urine Neg (Neg); Protein, Urine 3+ (Neg); Urobilinogen, Urine NORM (Normal)
[2021-10-12 18:18] LABS: Bilirubin, Urine 1+ (Neg)
[2021-10-12 18:24] LABS: Red Blood Cells, Urine 0-2 /hpf (0-2); White Blood Cells, Urine 0-2 /hpf (0-5)
[2021-10-12 18:25] LABS: Amorphous Light (0-Heavy); Bacteria Mod /hpf; Mucus Light (0-Heavy); Squamous Epithelial Cells Rare /hpf (Few)
[2021-10-12 18:26] LABS: Calcium Oxalate Crystals Rare /hpf
--- NOTE | 2021-10-13 04:32 | NUR ---
SHIFT SUMMARY A/O X4. IND IN THE ROOM. NG TUBE TO LOW INTERMIT SUCTION- DRAINING GREENISH BROWN FLUID. VOIDING WELL. PT REPORTS HAVING 3 BOWEL MOVEMENTS, WELL FLATUS. CONTINUED NPO STATUS THROUGHOUT SHIFT. PAIN MANAGED WELL W/ IV PAIN MEDICATION. VITAL SIGNS STABLE. WILL CONTINUE TO MONITOR AND REPORT TO ONCOMING SHIFT.
[2021-10-13 04:56] LABS: Hematocrit 44.2 % (37.0-53.0); Hemoglobin 14.9 g/dL (13.5-17.5); Mean Corpuscular HGB 32.6 pg (26.0-34.0); Mean Corpuscular HGB Conc 33.7 g/dL (31.5-36.5); Mean Corpuscular Volume 97 fL (80-100); Mean Platelet Volume 9.1 fL (9.1-12.4); Platelet Count 232 K/mm3 (150-400); RDW Coefficient Variation 12.3 % (11.7-14.2); RDW Standard Deviation 43.7 fL (35.1-46.3); Red Blood Cell Count 4.57 M/mm3 (4.30-5.90); White Blood Cell Count 8.31 K/mm3 (4.00-11.30)
[2021-10-13 05:13] LABS: Bun/Creatinine Ratio 11.6 (12.0-20.0); Calcium, Blood 8.6 mg/dL (8.5-10.1); Creatinine, Blood 1.81 mg/dL (0.60-1.20); Potassium, Blood 4.3 mmol/L (3.5-5.5)
--- NOTE | 2021-10-13 15:45 | NUR ---
SHIFT SUMMARY PT A&OX4, VSS/RA, NGT LIS WITH DK GREEN OUTPUT, NPO, SBA TO BRP, ABX PER EMAR/NS @ 125 MLS/HR. PAIN MANAGED WELL WITH DILAUDID 0.5 MG. PT RESTED WELL T/O SHIFT, AWAKENS EASILY. WILL REPORT TO ONCOMING NOC RN.
--- NOTE | 2021-10-14 04:38 | NUR ---
SHIFT SUMMARY NG TUBE IN PLACE TO LOW INTERMITTENT SUCTION, GREEN OUTPUT. PT CONTINUES TO COMPLAIN OF INTERMITTENT ABD THAT HE DESCRIBES SHARP. PT ALSO HAS COMPLAINED OF NAUSEA. MEDICATED PER EMAR WITH EFFECT. IV ANTIBITOICS, FLUIDS AND SANDOSTATIN PER ORDERS. BOWEL TONES HYPOACTIVE X4. NO BM THIS SHIFT. PT SLEEPS MOST OF THE NIGHT. NO ACUTE CHANGES, BED IN LOWEST POSITION, CALL LIGHT WITHIN REACH.
[2021-10-14 05:12] LABS: Bun/Creatinine Ratio 10.6 (12.0-20.0); Calcium, Blood 8.4 mg/dL (8.5-10.1); Creatinine, Blood 1.41 mg/dL (0.60-1.20); Potassium, Blood 4.5 mmol/L (3.5-5.5)
--- NOTE | 2021-10-14 16:51 | NUR ---
SUMMARY PT HAS BEEN PAINFUL T/O SHIFT. MEDICATED PER ORDERS FOR PAIN. PROVIDED K PAD FOR COMFORT. PT ALSO C/O OF BERTRAND, PROVIDED COOL COMPRESS TO HEAD. NG PUTTING OUT DARK GREEN LIQUID. MEDICATED ONCE THIS AFTERNOON PER ORDERS FOR NAUSEA. DISCUSSED PT'S INCREASED PAIN THIS AFTERNOON WITH DR COTO; NO NEW ORDERS AT THIS TIME. CALL LIGHT IN REACH.
[2021-10-15 05:34] LABS: Bun/Creatinine Ratio 9.9 (12.0-20.0); Calcium, Blood 8.8 mg/dL (8.5-10.1); Creatinine, Blood 1.41 mg/dL (0.60-1.20); Potassium, Blood 3.9 mmol/L (3.5-5.5)
--- NOTE | 2021-10-15 05:37 | NUR ---
SHIFT SUMMARY A/O X4- IND IN ROOM. PT REPORTS "FEELING MUCH BETTER" THIS AM. REPORTS PASSING FLATUS WELL HAVING BOWEL MOVEMENT X1. NG TUBE TO LIS, GREENISH BROWN LIQUID IN CANISTER. VOIDING WELL. CONTINUED NPO STATUS THROUGHOUT SHIFT. VITAL SIGNS STABLE. PAIN TREATED W/ IV PAIN MEDICAITION. WILL CONTINUE TO MONITOR AND REPORT TO ONCOMING RN.
--- NOTE | 2021-10-15 08:55 | NUR ---
DR COTO AT BEDSIDE ABOUT 0815, GAVE VERBAL ORDER TO CLAMP NG TUBE TO GIVE BETA DIPIKA. NG TUBE CLAMPED AT 0845 FOR CARVEDILOL ADMINISTRATION.
--- NOTE | 2021-10-15 09:20 | NUR ---
NG TUBE TO LOW INTERMITTENT SUCTION
--- NOTE | 2021-10-15 16:16 | NUR ---
NG TUBE CLAMPED AT 1615 FOR CARVEDILOL
--- NOTE | 2021-10-15 16:45 | NUR ---
NG TUBE TO LOW INT SUCTION
--- NOTE | 2021-10-15 17:11 | NUR ---
SHIFT SUMMARY PATIENT REMAINS NPO W/ ICE CHIPS THIS SHIFT. NG TUBE TO LOW INT SUCTION, CLAMPED X2 TIMES FOR BETA DIPIKA TO BE GIVEN, PER DR HUBBARD ORDER. PATIENT REPORTED NAUSEA ON AND OFF THROUGHOUT SHIFT & ABDOMINAL PAIN, MEDICATED BOTH PER EMAR. REPORTS OF INDEGESTION/BURNING FEELING AT TIMES. ABDOMEN FEELS MORE DISTENED THIS AFTERNOON, HYPOACTIVE BOWEL TONES, ALTHOUGH PATIENT DOES NOT REPORT WORSE NAUSEA WITH THE INCREASED DISTENTION. SBA TO BATHROOM, X1 BM TODAY, VOIDING WELL. CALLS APPROPRIATELY, WILL REPORT TO ONCIMING RN.
[2021-10-16 05:13] LABS: Bun/Creatinine Ratio 9.8 (12.0-20.0); Calcium, Blood 8.8 mg/dL (8.5-10.1); Creatinine, Blood 1.22 mg/dL (0.60-1.20); Potassium, Blood 3.8 mmol/L (3.5-5.5)
--- NOTE | 2021-10-16 07:26 | NUR ---
ASSUMED CARE OF PATIENT. PATIENT RESTING IN BED WATCHING TV AT THIS TIME. DENIES N/V, DENIES PAIN. STATES "IM FEELING BETTER TODAY". HYPOACTIVE BOWEL TONES, MODERATE ABDOMINAL DISTENTION. CALL LIGHT IN REACH.
--- NOTE | 2021-10-16 08:38 | NUR ---
NG TUBE CLAMPED AT 0830 FOR CARVEDILOL
--- NOTE | 2021-10-16 09:14 | NUR ---
NG TUBE TO LOW INT SUCTION. NEW CANISTER & TUBING PLACED.
--- NOTE | 2021-10-16 14:45 | NUR ---
NG TUBE CLAMPED FOR PATIENT TO GO TO IMAGING TO BEGIN SMALL BOWEL FOLLOW THROUGH. NG TUBE TO REMAIN CLAMPED UNTIL COMPLETION OF SMALL BOWEL FOLLOW THROUGH.
--- NOTE | 2021-10-16 18:07 | NUR ---
SHIFT SUMMARY NO ACUTE CHANGES THIS SHIFT. PATIENT REPORTS FEELING BETTER OVERALL. STILL HAS ABDOMINAL PAIN BUT REPORTS PAIN MEDICATION TO BE LASTING LONGER. NG TUBE REMAINS IN PLACE TO LOW INT SUCTION UP UNTIL SMALL BOWEL FOLLOW THROUGH WAS STARTED. WILL BE RECONNECTED 30 MIN AFTER CARVEDILOL ADMINISTERED. PATIENT REPORTS HAVING 4 BM'S, LOOSE, AFTER SMALL BOWEL FOLLOW THROUGH THIS AFTERNOON. REMAINS NPO WITH ICE CHIPS, CALLS APPROPRIATELY. WILL REPORT TO ONCOMING RN.
--- NOTE | 2021-10-17 05:00 | NUR ---
SHIFT SUMMARY PT REPORTS THAT HE IS DOING MUCH BETTER THIS SHIFT. HE HAS BEEN ABLE TO MOVE HIS BOWELS AND IS PASSING LIQUID STOOLS. NG TUBE IN PLACE LOW INTERMITTENT SUCTION WITH LIGHT GREEN DRAINAGE. OUTPUT FROM TUBE HAS DECREASED. PT MEDICATED X1 FOR PAIN THIS SHIFT. PT REMAINS INDEPENDENT IN THE ROOM. VITALS TRENDING AT BASELINE. BED IN LOWEST POSITION, CALL LIGHT WITHIN REACH.
[2021-10-17 05:28] LABS: Calcium, Blood 9.3 mg/dL (8.5-10.1); Creatinine, Blood 1.31 mg/dL (0.60-1.20); Potassium, Blood 3.9 mmol/L (3.5-5.5)
--- NOTE | 2021-10-17 15:58 | NUR ---
SHIFT SUMMARY PT A&OX4, VSS/RA, OBDULIA CLEARS, VOIDING, AMB SBA TO BRP/CHAIR/BED, REPOSITIONS SELF INDEPENDENTLY. NG TUBE REMOVED TODAY BY SURGEON. PT HAVING SOFT BMS TODAY, ATTENDS ON. DENIED NEED FOR PAIN MEDICATION TODAY. NEW IV PLACED RFA, ABX INFUSED PER EMAR. WILL REPORT TO ONCOMING NOC RN.
--- NOTE | 2021-10-18 06:13 | NUR ---
SHIFT SUMMARY PT HAS RESTED T/O SHIFT. PT HAS NOT REQUIRED ANY MEDICATIONS FOR PAIN AND DENIES NEEDS WHEN ASKED. NO N/V OR VOMITTING THIS SHIFT. PT REMAINS INDEPENDENT IN THE ROOM. ASSESSMENT UNCHANGED OVERNIGHT. BED IN LOWEST POSITION, CALL LIGHT WITHIN.
[2021-10-18 06:32] LABS: Bun/Creatinine Ratio 10.8 (12.0-20.0); Calcium, Blood 8.8 mg/dL (8.5-10.1); Creatinine, Blood 1.2 mg/dL (0.60-1.20); Potassium, Blood 3.2 mmol/L (3.5-5.5)
--- NOTE | 2021-10-18 13:01 | NUR ---
TELEPHONE CALL WITH DANNIELLE KIM OFFICE, TT KYARA ADAMS PLAN FOR PT TO FU WITH . SHE STATED THE OFFICE WILL SEND A RI TO [facility] TO GET APPROVAL TO SCHEDULE APPT WITH PT, AND TT TO WHEN AN APPT CAN BE SET PRIOR TO FEBRUARY, WHICH IS CURRENTLY HIS FIRST AVAILABLE. RELAYED PLAN WITH PT, AND ADDED TO DC PACKET.
--- NOTE | 2021-10-18 14:15 | NUR ---
DISCHARGE SUMMARY PT A&OX4, VSS/RA, DENIES N&V/OBDULIA FULL LIQUID DIET, VOIDING WELL, MULTI BMS, DENIES PAIN, AMB INDEPENDENTLY IN ROOM/HALLWAY. IV DC'D. DC INSTRUCTIONS PROVIDED. PT REP UNDERSTANDING THOSE INSTRUCTIONS INCLUDING FL DIET, FU WITH GI DR KIM, FU WITH PCP, TAKE REGLAN TID PRESCRIBED. PT DECLINED WC FOR DC, WALKED OFF FLOOR WITH ALL PERSONAL ITEMS INCLUDING DC PACKET.
== END 2021-10-18 14:20 | disposition home or self-care (01) | DRG 389 ==
LOC: ER 10:48 → SURS 14:53
PROVIDERS: Emergency Medicine; Family Medicine; Internal Medicine; Nurse Practitioner Acute Care; ADMIT Internal Medicine
DX: K56.609 Unspecified intestinal obstruction, unspecified as to partial versus complete obstruction (principal); K51.90 Ulcerative colitis, unspecified, without complications; G47.33 Obstructive sleep apnea (adult) (pediatric); K76.0 Fatty (change of) liver, not elsewhere classified; K21.9 Gastro-esophageal reflux disease without esophagitis; I12.9 Hypertensive chronic kidney disease with stage 1 through stage 4 chronic kidney disease, or unspecified chronic kidney disease; N18.30 Chronic kidney disease, stage 3 unspecified; E66.01 Morbid (severe) obesity due to excess calories; Z68.35 Body mass index [BMI] 35.0-35.9, adult; Z91.048 Other nonmedicinal substance allergy status; Z90.49 Acquired absence of other specified parts of digestive tract; Z98.890 Other specified postprocedural states; Z79.82 Long term (current) use of aspirin; Z79.899 Other long term (current) drug therapy
CPT/HCPCS: 36415; 74177; 74250; 80048; 80053; 81001; 83690; 84484; 85025; 85027; 87086; 93005; 93010; 96374-59; 96375; 96376; 99285-25; A9270; J0360; J1170; J2354; J2405; J2550; J2765; J3010; J7030; J7120; Q9967

== ENCOUNTER 2021-11-28 16:00 | Inpatient (IN) | payer OTHER ==
[~2021-11-28] VITALS: Ht 170.2 cm; Wt 100.7 kg
[~2021-11-28 16:00] MED LIST changes: +Carvedilol12.5 MG PO; -Coreg12.5 MG PO
[2021-11-28 18:26] LABS: BASOPHILS ABSOLUTE AUTO 0.04 K/mm3 (0.00-0.23); BASOPHILS PERCENT AUTO 0 % (0-2); EOSINOPHILS ABSOLUTE AUTO 0.03 K/mm3 (0.00-0.68); EOSINOPHILS PERCENT AUTO 0 % (0-6); Hematocrit 49.6 % (37.0-53.0); Hemoglobin 17.2 g/dL (13.5-17.5); IMMATURE GRAN ABSOLUTE AUTO 0.03 K/mm3 (0.00-0.10); IMMATURE GRAN PERCENT AUTO 0 % (0-1); LYMPHOCYTES PERCENT AUTO 11 % (21-46); MONOCYTES ABSOLUTE AUTO 0.58 K/mm3 (0.16-1.47); MONOCYTES PERCENT AUTO 6 % (4-13); Mean Corpuscular HGB Conc 34.7 g/dL (31.5-36.5); Mean Corpuscular Volume 92 fL (80-100); Mean Platelet Volume 9.4 fL (9.1-12.4); NEUTROPHILS ABSOLUTE AUTO 8.23 K/mm3 (1.96-9.15); NEUTROPHILS PERCENT AUTO 82 % (41-73); Platelet Count 346 K/mm3 (150-400); RDW Coefficient Variation 12.2 % (11.7-14.2); RDW Standard Deviation 42.2 fL (35.1-46.3); Red Blood Cell Count 5.38 M/mm3 (4.30-5.90); White Blood Cell Count 10.01 K/mm3 (4.00-11.30)
[2021-11-28 18:50] LABS: Albumin, Blood 4.6 g/dL (3.4-5.0); Albumin/Globulin Ratio 1.4 (0.8-1.8); Bilirubin, Total 1.2 mg/dL (0.1-1.0); Bun/Creatinine Ratio 10.8 (12.0-20.0); Calcium, Blood 9.8 mg/dL (8.5-10.1); Creatinine, Blood 2.12 mg/dL (0.60-1.20); Globulin, Blood 3.4 g/dL (2.2-4.0); Potassium, Blood 4.5 mmol/L (3.5-5.5)
[2021-11-28 23:28] LABS: Thyroid Stimulating Hormone 2.02 uIU/mL (0.360-4.800)
--- NOTE | 2021-11-29 04:46 | NUR ---
SHIFT SUMMARY PT FROM ED AT 0000. PT ADMITTED FOR SBO, NG TUBE IN PLACE IN L NARE. NG TUBE SET TO LOW INTERMITTENT SUCTION WITH YELLOW LIQUID OUTPUT. PT COMPLAINING OF PAIN, MEDICATING PER EMAR. A&O X 4, PT PLEASANT AND COOPERATIVE. CONSULT CALL PLACED TO DR. HURST ANSWERING SERVICE AT 0045. CALL LIGHT WITHIN REACH.
[2021-11-29 05:05] LABS: BASOPHILS ABSOLUTE AUTO 0.02 K/mm3 (0.00-0.23); BASOPHILS PERCENT AUTO 0 % (0-2); EOSINOPHILS ABSOLUTE AUTO 0.01 K/mm3 (0.00-0.68); EOSINOPHILS PERCENT AUTO 0 % (0-6); Hematocrit 47.1 % (37.0-53.0); Hemoglobin 15.8 g/dL (13.5-17.5); IMMATURE GRAN ABSOLUTE AUTO 0.04 K/mm3 (0.00-0.10); IMMATURE GRAN PERCENT AUTO 0 % (0-1); LYMPHOCYTES ABSOLUTE AUTO 1.02 K/mm3 (0.84-5.20); LYMPHOCYTES PERCENT AUTO 10 % (21-46); MONOCYTES ABSOLUTE AUTO 0.59 K/mm3 (0.16-1.47); MONOCYTES PERCENT AUTO 6 % (4-13); Mean Corpuscular HGB 31.7 pg (26.0-34.0); Mean Corpuscular HGB Conc 33.5 g/dL (31.5-36.5); Mean Corpuscular Volume 94 fL (80-100); Mean Platelet Volume 9.4 fL (9.1-12.4); NEUTROPHILS ABSOLUTE AUTO 8.62 K/mm3 (1.96-9.15); NEUTROPHILS PERCENT AUTO 84 % (41-73); Platelet Count 284 K/mm3 (150-400); RDW Coefficient Variation 12.2 % (11.7-14.2); RDW Standard Deviation 42.2 fL (35.1-46.3); Red Blood Cell Count 4.99 M/mm3 (4.30-5.90)
[2021-11-29 05:35] LABS: Albumin, Blood 3.9 g/dL (3.4-5.0); Albumin/Globulin Ratio 1.1 (0.8-1.8); Bilirubin, Total 1.5 mg/dL (0.1-1.0); Bun/Creatinine Ratio 13.5 (12.0-20.0); Calcium, Blood 8.9 mg/dL (8.5-10.1); Creatinine, Blood 1.93 mg/dL (0.60-1.20); Globulin, Blood 3.4 g/dL (2.2-4.0); Potassium, Blood 4.4 mmol/L (3.5-5.5); Total Protein, Blood 7.3 g/dL (6.4-8.2)
--- NOTE | 2021-11-29 17:57 | NUR ---
PLEASANT TO CARE, ALERT AND OREINTED, MAKES NEEDS KNOWN, DR HURST ROUNDED ON PATIENT X2 CHECKING THE NG WORKING, OPAQUE LIGHT BROWN FLUID. 1030 PATIENT COMPLAINED OF CP/EPIGASTRIC PAIN, VSS, SAT PATIENT UP IN BED, PATIENT BELCHED AND FELT BETTER, MEDICATED WITH DILAUDID, PAIN COMPLETELY RESOLVED. ABD DISTENDED, TENDER TO TOUCH. COMPLAINED OF NAUSEA THROUGH OUT THE DAY, MEDICATED WITH ZOFRAN X2, USES BSU, CALL LIGHT WITH IN REACH, WCTM
[2021-11-30 05:07] LABS: Hematocrit 43.3 % (37.0-53.0); Hemoglobin 14.6 g/dL (13.5-17.5); Mean Corpuscular HGB 32.3 pg (26.0-34.0); Mean Corpuscular HGB Conc 33.7 g/dL (31.5-36.5); Mean Corpuscular Volume 96 fL (80-100); Mean Platelet Volume 9.4 fL (9.1-12.4); Platelet Count 229 K/mm3 (150-400); RDW Coefficient Variation 12.2 % (11.7-14.2); RDW Standard Deviation 43.2 fL (35.1-46.3); Red Blood Cell Count 4.52 M/mm3 (4.30-5.90); White Blood Cell Count 6.64 K/mm3 (4.00-11.30)
--- NOTE | 2021-11-30 05:34 | NUR ---
SHIFT SUMMARY- NO ACUTE CHANGES THROUGHOUT THE NIGHT. PT A/OX4, REMAINS BEDREST DUE TO NG TUBE PLACEMENT- REMAINS ON LOW INTERMITTENT SUCTION. TOTAL OF 100ML OUTPUT THROUGHOUT THE NIGHT OPAQUE LIGHT BROWN APPEARANCE. PT HAD EPISODE OF NAUSEA AND ABDOMINAL DISCOMFORT RELIEVED WITH DILAUDID AND ZOFRAN. UPON ROUNDING PT CONTINUES TO APPEAR TO REST COMFORTBLY THROUGHT THE SHIFT. CALLS APPROPRIATELY, BED ALARM ACTIVATED, BED IN LOW POSITION, CALL ARRIAZA AND BELONGINGS IN REACH.
[2021-11-30 05:38] LABS: Albumin, Blood 3.7 g/dL (3.4-5.0); Albumin/Globulin Ratio 1.3 (0.8-1.8); Bilirubin, Total 1.5 mg/dL (0.1-1.0); Bun/Creatinine Ratio 16.8 (12.0-20.0); Calcium, Blood 8.7 mg/dL (8.5-10.1); Creatinine, Blood 1.55 mg/dL (0.60-1.20); Globulin, Blood 2.9 g/dL (2.2-4.0); Magnesium, Blood 1.9 mg/dL (1.6-2.4); Potassium, Blood 3.9 mmol/L (3.5-5.5); Total Protein, Blood 6.6 g/dL (6.4-8.2)
[2021-11-30 16:15] LABS: Hematocrit 44.9 % (37.0-53.0); Hemoglobin 15.1 g/dL (13.5-17.5); Mean Corpuscular HGB 31.8 pg (26.0-34.0); Mean Corpuscular HGB Conc 33.6 g/dL (31.5-36.5); Mean Corpuscular Volume 95 fL (80-100); Mean Platelet Volume 9.4 fL (9.1-12.4); Platelet Count 266 K/mm3 (150-400); RDW Standard Deviation 41.9 fL (35.1-46.3); Red Blood Cell Count 4.75 M/mm3 (4.30-5.90); White Blood Cell Count 6.85 K/mm3 (4.00-11.30)
--- NOTE | 2021-11-30 18:27 | NUR ---
ALERT AND ORIENTED, MAKES NEEDS KNOWN, NG REMOVED, DENEIS PAIN OR TENDERNESS IN ABD, ADVANCE DIET TOLERATED PRESENTLY AT FULL LIQUID, DENIES N/V. SHOWERED TODAY, HAD A BM LIGHT BROWN LIQUID. PLEASANT TO CARE, POSSIBLE DISCHARGE TOMORROW
--- NOTE | 2021-12-01 05:13 | NUR ---
SHIFT SUMMARY AOX4. DENIES ANY NAUSEA OR EMESIS. TOLERATING DIET. HAD LIQUID BROWN BM. DENIES ABD PAIN. HYPERACTIVE BT A4Q. SLEPT WELL T/O NIGHT. UP IND TO RESTROOM. CALL LIGHT IN REACH & PT ABLE TO MAKE NEEDS KNOWN. PT HOPING TO DC HOME TODAY. WILL MONITOR.
[2021-12-01 05:38] LABS: Albumin, Blood 3.4 g/dL (3.4-5.0); Albumin/Globulin Ratio 1.2 (0.8-1.8); Bilirubin, Total 0.9 mg/dL (0.1-1.0); Bun/Creatinine Ratio 14.6 (12.0-20.0); Creatinine, Blood 1.44 mg/dL (0.60-1.20); Globulin, Blood 2.9 g/dL (2.2-4.0); Potassium, Blood 3.6 mmol/L (3.5-5.5); Total Protein, Blood 6.3 g/dL (6.4-8.2)
[2021-12-01] MEDS ORDERED: DOCU100 PO (11:37)
--- NOTE | 2021-12-01 11:48 | NUR ---
DISCHARGE NOTE- PT WAS GIVEN VERBAL AND WRITTEN DISCHARGE INSTRUCTIONS AND ACKNOWLEDGED UNDERSTANDING OF THEM. PT DECLINED ESCORT AND WC AND WALKED OUT WITH HIS SON WHO WAS PICKING HIM UP. NO S&S OF DISTRESS NOTED AT THE TIME OF DISCHARGE.
== END 2021-12-01 11:45 | disposition home or self-care (01) | DRG 389 ==
LOC: ER 16:00 → MEDS 22:49
PROVIDERS: Family Medicine; Internal Medicine; Student in an Organized Health Care Education/Training Program; ADMIT Internal Medicine
DX: K56.51 Intestinal adhesions [bands], with partial obstruction (principal); N17.9 Acute kidney failure, unspecified; K21.9 Gastro-esophageal reflux disease without esophagitis; E03.9 Hypothyroidism, unspecified; I12.9 Hypertensive chronic kidney disease with stage 1 through stage 4 chronic kidney disease, or unspecified chronic kidney disease; N18.30 Chronic kidney disease, stage 3 unspecified; E66.9 Obesity, unspecified; D45 Polycythemia vera; G47.33 Obstructive sleep apnea (adult) (pediatric); Z68.34 Body mass index [BMI] 34.0-34.9, adult; Z90.49 Acquired absence of other specified parts of digestive tract; Z98.890 Other specified postprocedural states; Z91.048 Other nonmedicinal substance allergy status; Z79.899 Other long term (current) drug therapy
CPT/HCPCS: 36415; 71045; 74018; 74176; 74250; 80053; 83605; 83735; 84443; 85025; 85027; 94762; 96374; 96375; 99285-25; A9270; C9113; J1170; J2405; J7030; J7120

== ENCOUNTER 2022-04-18 19:11 | Emergency (ER) | payer OTHER ==
[~2022-04-18] VITALS: Ht 170.2 cm; Wt 140.9 kg
[2022-04-18 21:11] LABS: BASOPHILS ABSOLUTE AUTO 0.05 K/mm3 (0.00-0.23); BASOPHILS PERCENT AUTO 1 % (0-2); EOSINOPHILS ABSOLUTE AUTO 0.05 K/mm3 (0.00-0.68); EOSINOPHILS PERCENT AUTO 1 % (0-6); Hematocrit 48.5 % (37.0-53.0); Hemoglobin 16.5 g/dL (13.5-17.5); IMMATURE GRAN ABSOLUTE AUTO 0.03 K/mm3 (0.00-0.10); IMMATURE GRAN PERCENT AUTO 0 % (0-1); LYMPHOCYTES ABSOLUTE AUTO 1.66 K/mm3 (0.84-5.20); LYMPHOCYTES PERCENT AUTO 17 % (21-46); MONOCYTES ABSOLUTE AUTO 0.69 K/mm3 (0.16-1.47); MONOCYTES PERCENT AUTO 7 % (4-13); Mean Corpuscular HGB 32.1 pg (26.0-34.0); Mean Corpuscular Volume 94 fL (80-100); Mean Platelet Volume 9.2 fL (9.1-12.4); NEUTROPHILS ABSOLUTE AUTO 7.12 K/mm3 (1.96-9.15); NEUTROPHILS PERCENT AUTO 74 % (41-73); Platelet Count 273 K/mm3 (150-400); RDW Coefficient Variation 12.6 % (11.7-14.2); RDW Standard Deviation 43.5 fL (35.1-46.3); Red Blood Cell Count 5.14 M/mm3 (4.30-5.90)
[2022-04-18 21:18] LABS: Albumin, Blood 4.4 g/dL (3.4-5.0); Albumin/Globulin Ratio 1.3 (0.8-1.8); Bilirubin, Total 0.8 mg/dL (0.1-1.0); Calcium, Blood 9.7 mg/dL (8.5-10.1); Creatinine, Blood 2.16 mg/dL (0.60-1.20); Globulin, Blood 3.3 g/dL (2.2-4.0); Potassium, Blood 4.4 mmol/L (3.5-5.5); Total Protein, Blood 7.7 g/dL (6.4-8.2)
[2022-04-19] MEDS ORDERED: METO10 PO (02:30)
[2022-04-19] MEDS ORDERED: ONDA4ODT MM (02:30)
[2022-04-19] MEDS ORDERED: Citroma296 ML PO (02:32)
== END 2022-04-19 02:59 | disposition home or self-care (01) ==
LOC: ER 19:11
PROVIDERS: Student in an Organized Health Care Education/Training Program
DX: K56.7 Ileus, unspecified (principal); I12.9 Hypertensive chronic kidney disease with stage 1 through stage 4 chronic kidney disease, or unspecified chronic kidney disease; N18.30 Chronic kidney disease, stage 3 unspecified; E03.9 Hypothyroidism, unspecified; Z91.048 Other nonmedicinal substance allergy status; Z79.899 Other long term (current) drug therapy
CPT/HCPCS: 36415; 74177; 80053; 85025; 96374-59; 96375; 99284-25; A9270; J1170; J2765; Q9967

== ENCOUNTER 2022-06-11 17:51 | Inpatient (IN) | payer OTHER, MEDICARE ==
[~2022-06-11] VITALS: Ht 170.2 cm; Wt 100.9 kg
[~2022-06-11 17:51] MED LIST changes: +Citroma296 ML PO
[2022-06-11 18:48] LABS: BASOPHILS ABSOLUTE AUTO 0.09 K/mm3 (0.00-0.23); BASOPHILS PERCENT AUTO 1 % (0-2); EOSINOPHILS ABSOLUTE AUTO 0.05 K/mm3 (0.00-0.68); EOSINOPHILS PERCENT AUTO 1 % (0-6); Hematocrit 48.9 % (37.0-53.0); Hemoglobin 16.8 g/dL (13.5-17.5); IMMATURE GRAN ABSOLUTE AUTO 0.05 K/mm3 (0.00-0.10); IMMATURE GRAN PERCENT AUTO 1 % (0-1); LYMPHOCYTES ABSOLUTE AUTO 1.25 K/mm3 (0.84-5.20); LYMPHOCYTES PERCENT AUTO 12 % (21-46); MONOCYTES ABSOLUTE AUTO 0.85 K/mm3 (0.16-1.47); MONOCYTES PERCENT AUTO 8 % (4-13); Mean Corpuscular HGB 32.1 pg (26.0-34.0); Mean Corpuscular HGB Conc 34.4 g/dL (31.5-36.5); Mean Corpuscular Volume 94 fL (80-100); Mean Platelet Volume 9.5 fL (9.1-12.4); NEUTROPHILS ABSOLUTE AUTO 8.48 K/mm3 (1.96-9.15); NEUTROPHILS PERCENT AUTO 79 % (41-73); Platelet Count 280 K/mm3 (150-400); RDW Coefficient Variation 12.9 % (11.7-14.2); RDW Standard Deviation 44.3 fL (35.1-46.3); Red Blood Cell Count 5.23 M/mm3 (4.30-5.90); White Blood Cell Count 10.77 K/mm3 (4.00-11.30)
[2022-06-11 19:04] LABS: Albumin, Blood 4.1 g/dL (3.4-5.0); Bilirubin, Total 0.7 mg/dL (0.1-1.0); Bun/Creatinine Ratio 9.1 (12.0-20.0); Calcium, Blood 9.7 mg/dL (8.5-10.1); Creatinine, Blood 1.87 mg/dL (0.60-1.20); Potassium, Blood 4.8 mmol/L (3.5-5.5); Total Protein, Blood 8.1 g/dL (6.4-8.2)
[2022-06-11 21:31] LABS: Source, Urine Clean Catch
[2022-06-11 21:35] LABS: Bilirubin, Urine Neg (Neg); Blood, Urine 1+ (Neg); Glucose Qualitative, Urine Neg (Neg); Ketones, Urine Neg (Neg); Leukocyte Esterase, Urine 1+ (Neg); Nitrite, Urine Neg (Neg); Protein, Urine 2+ (Neg); Urobilinogen, Urine 1+ (Normal)
[2022-06-11 21:45] LABS: Appearance, Urine Clear (Clear); Bacteria Not Seen /hpf; Color, Urine Yellow (P-Yellow); Red Blood Cells, Urine 0-2 /hpf (0-2); Squamous Epithelial Cells Rare /hpf (Few); White Blood Cells, Urine 0-2 /hpf (0-5)
[2022-06-12] MEDS ORDERED: FAMO20 PO (00:05)
[2022-06-12] MEDS ORDERED: REGLAN1013 PO (00:05)
[2022-06-12] MEDS ORDERED: ONDANSETRON ODT 4MG (00:05)
[2022-06-12] MEDS ORDERED: CARVEDILOL12.5 MG PO (00:05)
[2022-06-12] MEDS ORDERED: EUTHYROX75 MC1 PO (00:06)
[2022-06-12] MEDS ORDERED: OMEP20ER PO (00:06)
[2022-06-12] MEDS ORDERED: THERA-D2000 UNIT PO (01:05)
--- NOTE | 2022-06-12 01:35 | NUR ---
ARRIVAL PT NEW ADMIT FROM ER. ARRIVED IN NO DISTRESS, NG TUBE IN PLACE WITH GOOD OUTPUT NOTED. CARLSON LIQUID. PT C/O 01/14 DIFFUSE ABD PAIN. ABD NOTED TO BE SEVERELY DISTENDED AND FIRM. MEDICATED PER EMAR. PT A/OX4, ON RA. CALL PLACED TO ANSWERING SERVICE FOR GEN SURG CONSULT. THE PATIENT IS CURRENTLY SLEEPING, IN NO DISTRESS, CALL LIGHT IN REACH. SCD'S ON
[2022-06-12 03:11] LABS: Free Thyroxine 1.2 ng/dL (0.70-1.60); Thyroid Stimulating Hormone 1.89 uIU/mL (0.360-4.800)
--- NOTE | 2022-06-12 04:59 | NUR ---
VSS. PT SLEPT ON AND OFF T/O THE NIGHT. PT REPORTS HE EXPERIENCES ABD RELIEF FROM THE NG TUBE. MODERATE OUTPUT NOTED, CARLSON LIQUID NOTED. SWITCHED PAIN MEDICATION FROM FENT TO DILAUDID, PT APPEARS TO EXPERIENCE MORE RELIEF FROM THIS. PT HAS NOT REQUIRED NAUSEA MEDICATION, NO EMESIS NTOED. PT DENIES PASSING FLATTUS BUT REPORTS PASSING BM'S AT HOME BEFORE COMING TO THE HOSPITAL. PLAN FOR PT TO HAVE GEN SURGERY CONSULT THIS AM. THE PATIENT IS CURRENTLY SLEEPING, IN NO DISTRESS, CALL LIGHT IN REACH
[2022-06-12 05:31] LABS: BASOPHILS ABSOLUTE AUTO 0.03 K/mm3 (0.00-0.23); BASOPHILS PERCENT AUTO 0 % (0-2); EOSINOPHILS ABSOLUTE AUTO 0.01 K/mm3 (0.00-0.68); EOSINOPHILS PERCENT AUTO 0 % (0-6); Hematocrit 45.5 % (37.0-53.0); Hemoglobin 15.3 g/dL (13.5-17.5); IMMATURE GRAN ABSOLUTE AUTO 0.04 K/mm3 (0.00-0.10); IMMATURE GRAN PERCENT AUTO 0 % (0-1); LYMPHOCYTES ABSOLUTE AUTO 1.03 K/mm3 (0.84-5.20); LYMPHOCYTES PERCENT AUTO 11 % (21-46); MONOCYTES ABSOLUTE AUTO 0.54 K/mm3 (0.16-1.47); MONOCYTES PERCENT AUTO 6 % (4-13); Mean Corpuscular HGB 32.2 pg (26.0-34.0); Mean Corpuscular HGB Conc 33.6 g/dL (31.5-36.5); Mean Corpuscular Volume 96 fL (80-100); Mean Platelet Volume 9.8 fL (9.1-12.4); NEUTROPHILS PERCENT AUTO 83 % (41-73); Platelet Count 252 K/mm3 (150-400); RDW Coefficient Variation 13.1 % (11.7-14.2); RDW Standard Deviation 46.3 fL (35.1-46.3); Red Blood Cell Count 4.75 M/mm3 (4.30-5.90); White Blood Cell Count 9.45 K/mm3 (4.00-11.30)
[2022-06-12 06:08] LABS: Albumin, Blood 3.6 g/dL (3.4-5.0); Albumin/Globulin Ratio 1.1 (0.8-1.8); Bilirubin, Total 0.9 mg/dL (0.1-1.0); Bun/Creatinine Ratio 10.8 (12.0-20.0); Calcium, Blood 9.2 mg/dL (8.5-10.1); Creatinine, Blood 1.76 mg/dL (0.60-1.20); Globulin, Blood 3.4 g/dL (2.2-4.0); Potassium, Blood 4.8 mmol/L (3.5-5.5)
--- NOTE | 2022-06-12 09:54 | NUR ---
"Spiritual Care | Pt. request Pt. is awake in bed and welcomes my visit. Pt. is distressed about his condition. Through theraputic listening and a calming presence pt. displayed evidence of reduced anxiety. Facilitated a brief life review. Prayed with Pt. Pt. verbalized gratitude for the spiritual care visit and welcomed this manufacturing development engineer to return."
--- NOTE | 2022-06-12 17:32 | NUR ---
SHIFT SUMMARY: NO ACUTE CHANGES. VITAL SIGNS REMAIN STABLE. NAUSEA AND PAIN AT START OF SHIFT, RELIEVED WITH EMAR MEDICATIONS. NG TUBE REMAINS IN PLACE AND SECURED WITH TAPE. 600ML CARLSON/BROWN OUTPUT THIS SHIFT. OUTPUT HAS DECREASED THIS EVENING. PATIENT PASSED GAS, BUT NO BOWEL MOVEMENT. REMAINS NPO. NG TUBE TO LOW INTERMIT SUCTION. DR. VALLES BY, NO NEW ORDERS FOR THIS RN TO PLACE. DENIES CURRENT PAIN OR NEEDS. RESTING IN BED AND WATCHING TV. UP STANDING AND MARCHING IN PLACE THIS AFTERNOON WITH SBA AND LINE MANAGEMENT. NS INFUSED THIS SHIFT AND COMPLETED. IV SALINE LOCKED. REMAINS ON ROOM AIR. USING URINAL TO VOID. WILL CONTINUE TO MONITOR AND REPORT OFF TO ONCOMING RN.
--- NOTE | 2022-06-12 19:28 | NUR ---
PATIENT REQUESTING PAIN MEDICATION AROUND 1800, COMPLAINING OF 9/10 PAIN. MEDICATED PER EMAR WITH GOOD RELIEF. PATIENT RESTING COMFORTABLY POST PAIN MEDICATION ADMINISTRATION. UPON BEDSIDE REPORT PATIENT LOOKING SLIGHTLY MORE PALE COMPARED TO THIS MORNING AND VERY SLEEPY. PULSE OX CHECKED AND SATING 89% ON ROOM AIR. 2L APPLIED AND PATIENT SATING 94%. BP STABLE. STATES HIS ABDOMINAL PAIN IS RELIEVED, BUT NOW HAS HEADACHE. REPORTED OFF TO MEGAN CM. NG TUBE CONTINUES TO LOW INTERMIT SUCTION.
--- NOTE | 2022-06-13 01:57 | NUR ---
PT WITH LOW URINARY VOLUME.PT HAS DARK LISSET URINE,ALTHOUGH HE HAS CKD.PT HAS HAD LARGE VOLUME OUTPUT PER NG LAST NIGHT AND MOD VOLUME DURING DAY WHICH IS SLOWING AT THIS TIME.PT HAD RECEIVED A BOLUS IN ER WITH ADMIT AND RECEIVED 1 LITER SINCE ARRIVING TO THIS UNIT.NA AND K ARE WNL. I CALLED DR MEDLEY AND RECEIVED ORDERS FOR NS @ 75 ML/HR X 1 LITER.
[2022-06-13 04:48] LABS: BASOPHILS ABSOLUTE AUTO 0.04 K/mm3 (0.00-0.23); BASOPHILS PERCENT AUTO 1 % (0-2); EOSINOPHILS ABSOLUTE AUTO 0.08 K/mm3 (0.00-0.68); EOSINOPHILS PERCENT AUTO 1 % (0-6); Hematocrit 43.6 % (37.0-53.0); Hemoglobin 14.7 g/dL (13.5-17.5); IMMATURE GRAN ABSOLUTE AUTO 0.02 K/mm3 (0.00-0.10); IMMATURE GRAN PERCENT AUTO 0 % (0-1); LYMPHOCYTES ABSOLUTE AUTO 1.44 K/mm3 (0.84-5.20); LYMPHOCYTES PERCENT AUTO 22 % (21-46); MONOCYTES ABSOLUTE AUTO 0.63 K/mm3 (0.16-1.47); MONOCYTES PERCENT AUTO 10 % (4-13); Mean Corpuscular HGB 32.6 pg (26.0-34.0); Mean Corpuscular HGB Conc 33.7 g/dL (31.5-36.5); Mean Corpuscular Volume 97 fL (80-100); Mean Platelet Volume 9.1 fL (9.1-12.4); NEUTROPHILS ABSOLUTE AUTO 4.24 K/mm3 (1.96-9.15); NEUTROPHILS PERCENT AUTO 66 % (41-73); Platelet Count 211 K/mm3 (150-400); RDW Coefficient Variation 12.8 % (11.7-14.2); RDW Standard Deviation 45.9 fL (35.1-46.3); Red Blood Cell Count 4.51 M/mm3 (4.30-5.90); White Blood Cell Count 6.45 K/mm3 (4.00-11.30)
[2022-06-13 05:05] LABS: Albumin, Blood 3.6 g/dL (3.4-5.0); Anion Gap 2 mmol/L (6-16); Blood Urea Nitrogen 18 mg/dL (8-24); Bun/Creatinine Ratio 10.2 (12.0-20.0); CO2, Blood 35 mmol/L (21-32); Calcium, Blood 8.9 mg/dL (8.5-10.1); Chloride, Blood 101 mmol/L (98-108); Creatinine, Blood 1.76 mg/dL (0.60-1.20); Glomerular Filtration Rate 40 (60-); Glucose, Blood 133 mg/dL (70-99); Magnesium, Blood 2.1 mg/dL (1.6-2.4); Phosphorus, Blood 3.2 mg/dL (2.5-4.9); Potassium, Blood 4.4 mmol/L (3.5-5.5); Sodium, Blood 138 mmol/L (136-145)
--- NOTE | 2022-06-13 07:19 | NUR ---
SUMAMRY IMPROVED URINE OUTPUT AND GETTING NURSERY ATTENDANT.PASSING FLATUS.
--- NOTE | 2022-06-13 13:48 | NUR ---
VOLUNTEER IN TO SEE PATIENT
--- NOTE | 2022-06-13 19:03 | NUR ---
SHIFT SUMMARY PT A&OX4, VSS/RA, OBDULIA PO FULL LIQ DIET, VOIDING WELL, MULTI BMs, DENIES PAIN, AMB INDEPENDENTLY TO BRP AND IN HALLWAY. REPORT TO CONY CM.
[2022-06-14 04:09] LABS: Albumin, Blood 3.7 g/dL (3.4-5.0); Anion Gap 2 mmol/L (6-16); Blood Urea Nitrogen 21 mg/dL (8-24); CO2, Blood 36 mmol/L (21-32); Calcium, Blood 9.3 mg/dL (8.5-10.1); Chloride, Blood 100 mmol/L (98-108); Creatinine, Blood 1.75 mg/dL (0.60-1.20); Glomerular Filtration Rate 41 (60-); Glucose, Blood 139 mg/dL (70-99); Phosphorus, Blood 3.7 mg/dL (2.5-4.9); Potassium, Blood 3.7 mmol/L (3.5-5.5); Sodium, Blood 138 mmol/L (136-145)
--- NOTE | 2022-06-14 04:37 | NUR ---
SHIFT SUMMARY: PT RESTED COMFORTABLY T/O THE NIGHT. SMALL BOWEL FOLLOW THROUGH YESTERDAY. DENIED PAIN. TOLERATING FULL LIQUID DIET AT THIS TIME. EATING, DRINKING, AND VOIDING. REPORTED HAVING BM DURING DAY SHIFT. VSS. RESTING AT THIS TIME WITH CALL LIGHT IN REACH. WILL GIVE REPORT TO DAY TIME RN.
--- NOTE | 2022-06-14 12:30 | NUR ---
DISCHARGE SUMMARY PT A&OX4, VSS/RA, OBDULIA PO REG DIET, DENIES PAIN, AMB INDEPENDENTLY, VOIDING WELL, BMS, IV DC'D. DC INS PROVIDED. PT REP UNDERSTANDING THOSE INSTRUCTIONS INCLUDING FU WITH PCP AND FU WITH SURGEON, EDU TO TAKE BP/HR BID R/T COREG, RECORD AND TAKE TO PCP. PT LEFT FLOOR, DECLINING WC, TO GO HOME WITH SON, WITH ALL PERSONAL POSSESSIONS INCLUDING DC PACKET.
== END 2022-06-14 12:25 | disposition home or self-care (01) | DRG 390 ==
LOC: ER 17:51 → SURS 17:52
PROVIDERS: Internal Medicine; Student in an Organized Health Care Education/Training Program; ADMIT Internal Medicine
PROC: BD13ZZZ Fluoroscopy of Small Bowel (ICD-10-PCS; principal; 2022-06-13)
PROC: 0DH67UZ Insertion of Feeding Device into Stomach, Via Natural or Artificial Opening (ICD-10-PCS; 2022-06-13)
DX: K56.600 Partial intestinal obstruction, unspecified as to cause (principal); E03.9 Hypothyroidism, unspecified; K21.9 Gastro-esophageal reflux disease without esophagitis; G47.33 Obstructive sleep apnea (adult) (pediatric); D45 Polycythemia vera; I12.9 Hypertensive chronic kidney disease with stage 1 through stage 4 chronic kidney disease, or unspecified chronic kidney disease; N18.30 Chronic kidney disease, stage 3 unspecified; Z99.81 Dependence on supplemental oxygen; Z91.048 Other nonmedicinal substance allergy status; Z79.899 Other long term (current) drug therapy; Z90.49 Acquired absence of other specified parts of digestive tract; Z98.890 Other specified postprocedural states
CPT/HCPCS: 36415; 74177; 74250; 80053; 80069; 81001; 83690; 83735; 83880; 84439; 84443; 84484; 85025; 93005; 93010; 96374-59; 96375; 96376; 99285-25; A9270; J0456; J0696; J1170; J2405; J3010; J7030; J7050; Q9967

== ENCOUNTER 2022-07-19 09:58 | Inpatient (IN) | payer MEDICARE ==
[~2022-07-19] VITALS: Ht 170.2 cm; Wt 100.1 kg
[~2022-07-19 09:58] MED LIST changes: +CARVEDILOL12.5 MG PO; +EUTHYROX75 MC1 PO; +FAMO20 PO; +ONDANSETRON ODT 4MG; +REGLAN1013 PO; +THERA-D2000 UNIT PO
[2022-07-19] MEDS ORDERED: AMLODIPINE BESY10 MG PO (10:25)
[2022-07-19 10:26] LABS: BASOPHILS ABSOLUTE AUTO 0.05 K/mm3 (0.00-0.23); BASOPHILS PERCENT AUTO 1 % (0-2); EOSINOPHILS ABSOLUTE AUTO 0.03 K/mm3 (0.00-0.68); EOSINOPHILS PERCENT AUTO 0 % (0-6); Hematocrit 51.4 % (37.0-53.0); Hemoglobin 18.2 g/dL (13.5-17.5); IMMATURE GRAN ABSOLUTE AUTO 0.04 K/mm3 (0.00-0.10); IMMATURE GRAN PERCENT AUTO 0 % (0-1); LYMPHOCYTES ABSOLUTE AUTO 1.53 K/mm3 (0.84-5.20); LYMPHOCYTES PERCENT AUTO 14 % (21-46); MONOCYTES ABSOLUTE AUTO 0.75 K/mm3 (0.16-1.47); MONOCYTES PERCENT AUTO 7 % (4-13); Mean Corpuscular HGB 32.6 pg (26.0-34.0); Mean Corpuscular HGB Conc 35.4 g/dL (31.5-36.5); Mean Corpuscular Volume 92 fL (80-100); Mean Platelet Volume 9.2 fL (9.1-12.4); NEUTROPHILS ABSOLUTE AUTO 8.52 K/mm3 (1.96-9.15); NEUTROPHILS PERCENT AUTO 78 % (41-73); Platelet Count 294 K/mm3 (150-400); RDW Coefficient Variation 12.4 % (11.7-14.2); RDW Standard Deviation 42.1 fL (35.1-46.3); Red Blood Cell Count 5.59 M/mm3 (4.30-5.90); White Blood Cell Count 10.92 K/mm3 (4.00-11.30)
[2022-07-19 10:46] LABS: Albumin, Blood 4.3 g/dL (3.4-5.0); Albumin/Globulin Ratio 1.2 (0.8-1.8); Bilirubin, Total 0.9 mg/dL (0.1-1.0); Bun/Creatinine Ratio 12.4 (12.0-20.0); Creatinine, Blood 1.86 mg/dL (0.60-1.20); Globulin, Blood 3.7 g/dL (2.2-4.0); Potassium, Blood 4.2 mmol/L (3.5-5.5)
[2022-07-19 15:32] LABS: Source, Urine Clean Catch
[2022-07-19 15:45] LABS: Bilirubin, Urine Neg (Neg); Blood, Urine Neg (Neg); Color, Urine Amber (P-Yellow); Glucose Qualitative, Urine Neg (Neg); Ketones, Urine Neg (Neg); Leukocyte Esterase, Urine Neg (Neg); Nitrite, Urine Neg (Neg); Protein, Urine 3+ (Neg); Specific Gravity, Urine 1.015 (1.003-1.022); Urobilinogen, Urine NORM (Normal)
[2022-07-19 15:46] VITALS: BP 154/115
[2022-07-19] MEDS ORDERED: Carvedilol12.5 MG PO (15:57)
[2022-07-19 16:00] LABS: Appearance, Urine Clear (Clear)
[2022-07-19 16:21] LABS: Calcium Oxalate Crystals Mod /hpf; Red Blood Cells, Urine 0-2 /hpf (0-2); White Blood Cells, Urine 0-2 /hpf (0-5)
[2022-07-19 16:22] LABS: Bacteria Few /hpf; Squamous Epithelial Cells Rare /hpf (Few)
[2022-07-19 18:20] VITALS: BP 146/89
[2022-07-19] MEDS ORDERED: METO10 PO (18:35)
[2022-07-19 19:10] VITALS: BP 165/87
--- NOTE | 2022-07-19 21:21 | NUR ---
PT CALLED WITH COMPLAINT OF INCREASED PAIN. CALL PLACED TO DR VAIL, FOR PAIN COVERAGE AND UPDATE OF STATUS CHANGE. DR TO REVIEW CHART AND CALL BACK, ADDED ORDER .25 MCG FENT, Q2.
[2022-07-20 02:47] VITALS: BP 150/82
--- NOTE | 2022-07-20 03:36 | NUR ---
PT HAD NOT FELT THE NEED TO URINATE SINCE THE START OF SHIFT, BUT HAD TRIED. BLADDER SCANNED AT @ 0300 SHOWED 163ML. PT TRIED AGAIN AFTER SCAN AND MANAGED TO VOID 200ML DARK/YELLOW. NOTIFIED , NEW ORDER FOR NS 500ML BOLUS.
[2022-07-20 04:17] LABS: BASOPHILS ABSOLUTE AUTO 0.03 K/mm3 (0.00-0.23); BASOPHILS PERCENT AUTO 0 % (0-2); EOSINOPHILS ABSOLUTE AUTO 0.04 K/mm3 (0.00-0.68); EOSINOPHILS PERCENT AUTO 0 % (0-6); Hematocrit 43.7 % (37.0-53.0); Hemoglobin 15.3 g/dL (13.5-17.5); IMMATURE GRAN ABSOLUTE AUTO 0.03 K/mm3 (0.00-0.10); IMMATURE GRAN PERCENT AUTO 0 % (0-1); LYMPHOCYTES ABSOLUTE AUTO 1.32 K/mm3 (0.84-5.20); LYMPHOCYTES PERCENT AUTO 14 % (21-46); MONOCYTES ABSOLUTE AUTO 0.77 K/mm3 (0.16-1.47); MONOCYTES PERCENT AUTO 8 % (4-13); Mean Corpuscular HGB 32.7 pg (26.0-34.0); Mean Corpuscular Volume 93 fL (80-100); Mean Platelet Volume 9.2 fL (9.1-12.4); NEUTROPHILS ABSOLUTE AUTO 7.32 K/mm3 (1.96-9.15); NEUTROPHILS PERCENT AUTO 77 % (41-73); Platelet Count 224 K/mm3 (150-400); RDW Coefficient Variation 12.5 % (11.7-14.2); RDW Standard Deviation 42.8 fL (35.1-46.3); Red Blood Cell Count 4.68 M/mm3 (4.30-5.90); White Blood Cell Count 9.51 K/mm3 (4.00-11.30)
[2022-07-20 04:36] LABS: Albumin, Blood 3.4 g/dL (3.4-5.0); Albumin/Globulin Ratio 1.1 (0.8-1.8); Bilirubin, Total 0.9 mg/dL (0.1-1.0); Bun/Creatinine Ratio 14.4 (12.0-20.0); Calcium, Blood 8.6 mg/dL (8.5-10.1); Creatinine, Blood 1.53 mg/dL (0.60-1.20); Globulin, Blood 3.1 g/dL (2.2-4.0); Total Protein, Blood 6.5 g/dL (6.4-8.2)
--- NOTE | 2022-07-20 05:41 | NUR ---
SHIFT SUMMARY PT A&OX4, AND COOPERATIVE WITH CARE. PT HAD AN INCREASE IN PAIN AT BEGINNING OF SHIFT, NOTIFIED , STAT CT WAS DONE, REVIEWED WITH PHYSICIAN, NO NEW ORDERS. MEDICATING FOR PAIN PER EMAR. PT REPORTED HAVE A LOOSE YELLOW/BM. CALLED AROUND 0330 WITH CONCERNS OF LOW URINE OUTPUT, 500ML NS BOLUS ORDERED/GIVEN. SBA TO BATHROOM. NPO WITH NG TUBE TO INT SUCTION, CARLSON/BROWN OUTPUT. CALLS APPROPRIATELY, CALL LIGHT WITHIN REACH.
[2022-07-20 07:17] VITALS: BP 164/88
[2022-07-20 09:50] VITALS: BP 157/92
[2022-07-20 14:42] VITALS: BP 145/96
--- NOTE | 2022-07-20 17:33 | NUR ---
SUMMARY PT HAS BEEN PAINFUL OFF AND ON T/O SHIFT. MEDICATED PER ORDERS FOR PAIN. RESTING WITH EYES CLOSED AT THIS TIME. NG PUTTING OUT CARLSON FLUID FROM L NARES. NG HAD COME LOOSE FROM NOSE THIS AFTERNOON, ADVANCED BACK IN AND PLACED NEW TAPE. PT TOLERATED FAIR. CALL LIGHT IN REACH. PLAN FOR SBFT IN AM.
[2022-07-20 19:48] VITALS: BP 158/96
[2022-07-21 04:49] LABS: Anion Gap Unable to Calculate mmol/L (6-16); Blood Urea Nitrogen 16 mg/dL (8-24); Bun/Creatinine Ratio 12.5 (12.0-20.0); CO2, Blood 32 mmol/L (21-32); Calcium, Blood 8.4 mg/dL (8.5-10.1); Chloride, Blood 105 mmol/L (98-108); Creatinine, Blood 1.28 mg/dL (0.60-1.20); Glomerular Filtration Rate 59 (60-); Glucose, Blood 128 mg/dL (70-99); Potassium, Blood 3.9 mmol/L (3.5-5.5); Sodium, Blood 136 mmol/L (136-145)
[2022-07-21 05:08] VITALS: BP 162/90
--- NOTE | 2022-07-21 06:40 | NUR ---
SHIFT SUMMARY PT A&OX4, AND COOPERATIVE WITH CARE. MEDICATING FOR PAIN PER EMAR. MEDICATED FOR NAUSEA ONCE. NPO. NG IN PLACE AND DRAINING TANNISH OUTPUT, 200ML OVER THIS SHIFT. AMBULATE WITH SBA. CALLS APPROPRIATELY, CALL LIGHT WITHIN REACH. PLAN IS FOR A SBFT TODAY.
[2022-07-21 07:37] VITALS: BP 156/92
[2022-07-21 15:22] VITALS: BP 163/86
--- NOTE | 2022-07-21 17:54 | NUR ---
SHIFT SUMMARY PT HAD SMALL BOWEL FOLLOW THROUGH THIS AM. SINCE THE FOLLOW THROUGH THE PT HAS HAD NUMEROUS, CARLSON COLORED BM'S. MEDICATED FOR PAIN X1 THIS SHIFT. NG TUBE IN R NARE TO LOW INTERMITTENT SUCTION. SUCTION CLAMPED TO USE THE RESTROOM.
[2022-07-21 19:14] VITALS: BP 173/83
[2022-07-21 22:37] VITALS: BP 184/89
[2022-07-22 01:03] VITALS: BP 177/81
[2022-07-22 02:38] VITALS: BP 150/82
[2022-07-22 04:32] LABS: BASOPHILS ABSOLUTE AUTO 0.02 K/mm3 (0.00-0.23); BASOPHILS PERCENT AUTO 0 % (0-2); EOSINOPHILS ABSOLUTE AUTO 0.08 K/mm3 (0.00-0.68); EOSINOPHILS PERCENT AUTO 1 % (0-6); Hematocrit 44.1 % (37.0-53.0); Hemoglobin 14.9 g/dL (13.5-17.5); IMMATURE GRAN ABSOLUTE AUTO 0.03 K/mm3 (0.00-0.10); IMMATURE GRAN PERCENT AUTO 0 % (0-1); LYMPHOCYTES ABSOLUTE AUTO 0.98 K/mm3 (0.84-5.20); LYMPHOCYTES PERCENT AUTO 14 % (21-46); MONOCYTES ABSOLUTE AUTO 0.64 K/mm3 (0.16-1.47); MONOCYTES PERCENT AUTO 9 % (4-13); Mean Corpuscular HGB 31.8 pg (26.0-34.0); Mean Corpuscular HGB Conc 33.8 g/dL (31.5-36.5); Mean Corpuscular Volume 94 fL (80-100); Mean Platelet Volume 9.3 fL (9.1-12.4); NEUTROPHILS ABSOLUTE AUTO 5.47 K/mm3 (1.96-9.15); NEUTROPHILS PERCENT AUTO 76 % (41-73); Platelet Count 197 K/mm3 (150-400); RDW Coefficient Variation 12.2 % (11.7-14.2); RDW Standard Deviation 42.5 fL (35.1-46.3); Red Blood Cell Count 4.69 M/mm3 (4.30-5.90); White Blood Cell Count 7.22 K/mm3 (4.00-11.30)
[2022-07-22 04:56] LABS: Calcium, Blood 8.9 mg/dL (8.5-10.1); Creatinine, Blood 1.08 mg/dL (0.60-1.20); Potassium, Blood 3.5 mmol/L (3.5-5.5)
--- NOTE | 2022-07-22 06:41 | NUR ---
SHIFT SUMMARY PT A&OX4, PLEASANT AND COOPERATIVE WITH CARE. PT HAD ELEVATED BP, GIVEN HYDRALAZINE TWICE. MEDICATED FOR PAIN ONCE. PT HAD A SBFT THIS MORNING, HAS BEEN HAVE FREQUENT LOOSE BM'S. NG WAS CLAMPED YESTERDAY, AND HAS REMAINED CLAMPED T/O SHIFT. CALLS APPROPRIATELY, CALL LIGHT WITHIN REACH.
[2022-07-22 07:23] VITALS: BP 188/87
[2022-07-22 10:33] VITALS: BP 160/82
--- NOTE | 2022-07-22 11:25 | NUR ---
NG TUBE REMOVED NG REMOVED PER PHYSICIAN NOTE. REMOVED WITH PRIMARY NURSE MAHENDRA. PT TOLERATED REMOVAL WELL.
[2022-07-22 14:50] VITALS: BP 150/82
--- NOTE | 2022-07-22 17:40 | NUR ---
SHIFT SUMMARY SMALL BOWEL OBSTRUCTION. PT HAS BEEN IND IN ROOM, SLEEPING THROUGH THE DAY. AMBULATING IN HIS ROOM. CONTINUES TO PASS FLATUS AND LOOSE STOOLS. DENIES ANY PAIN TODAY. TOLERATING DIET WELL.
[2022-07-22 19:34] VITALS: BP 152/86
[2022-07-23 04:22] VITALS: BP 156/84
[2022-07-23 04:24] LABS: Hemoglobin 15.2 g/dL (13.5-17.5); Mean Corpuscular HGB 33.3 pg (26.0-34.0); Mean Corpuscular HGB Conc 36.2 g/dL (31.5-36.5); Mean Corpuscular Volume 92 fL (80-100); Mean Platelet Volume 9.5 fL (9.1-12.4); Platelet Count 197 K/mm3 (150-400); RDW Coefficient Variation 12.2 % (11.7-14.2); RDW Standard Deviation 40.8 fL (35.1-46.3); Red Blood Cell Count 4.57 M/mm3 (4.30-5.90); White Blood Cell Count 6.23 K/mm3 (4.00-11.30)
[2022-07-23 04:42] LABS: Bun/Creatinine Ratio 10.9 (12.0-20.0); Calcium, Blood 8.8 mg/dL (8.5-10.1); Creatinine, Blood 1.19 mg/dL (0.60-1.20); Potassium, Blood 3.1 mmol/L (3.5-5.5)
--- NOTE | 2022-07-23 04:43 | NUR ---
SHIFT SUMMARY PT A&OX4, PLEASANT AND COOPERATIVE WITH CARE. NO ACUTE CHANGES, VSS. PT HAS NOT NEEDED PAIN COVERAGE THIS SHIFT. TOLERATING PO INTAKE, NO COMPLAINTS OF NAUSEA THIS SHIFT. PT REPORTS STILL PASSING FLATUS. INDEPENDENT IN ROOM. CALLS APPROPRIATELY, CALL LIGHT WITHIN REACH.
[2022-07-23 07:43] VITALS: BP 161/83
[2022-07-23 08:25] VITALS: BP 167/95
[2022-07-23 08:58] VITALS: BP 166/88
[2022-07-23 14:37] VITALS: BP 147/85
--- NOTE | 2022-07-23 16:33 | NUR ---
SHIFT SUMMARY SBO PT IND IN ROOM, AMBULATING WELL IN ROOM. DENIES NAUSEA OR VOMITING. TOLERATING DIET WELL. ADVANCED TO REGULAR DIET TODAY, PT EXCITED TO EAT "REAL" FOOD. PASSING GAS, HAVING SMALL BM'S.
[2022-07-23 17:09] VITALS: BP 167/82
--- NOTE | 2022-07-23 18:09 | NUR ---
DISCHARGE SUMMARY NO NEW CHANGES SINCE LAST RN NOTE. PT EDUCATION GIVEN AND UNDERSTOOD. IV'S TAKEN OUT. NO NEW PRESCRPTIONS GIVEN. PT WALKED DOWN TO AREA WHERE BEING PICKED UP. ALL BELONGINGS WITH PT.
== END 2022-07-23 18:27 | disposition home or self-care (01) | DRG 389 ==
LOC: ER 09:58 → SURS 14:43
PROVIDERS: Family Medicine; Physician Assistant; Student in an Organized Health Care Education/Training Program; ADMIT Hospitalist
PROC: 0D9670Z Drainage of Stomach with Drainage Device, Via Natural or Artificial Opening (ICD-10-PCS; principal; 2022-07-20)
PROC: BD13ZZZ Fluoroscopy of Small Bowel (ICD-10-PCS; 2022-07-20)
DX: K56.609 Unspecified intestinal obstruction, unspecified as to partial versus complete obstruction (principal); E87.1 Hypo-osmolality and hyponatremia; N17.9 Acute kidney failure, unspecified; I12.9 Hypertensive chronic kidney disease with stage 1 through stage 4 chronic kidney disease, or unspecified chronic kidney disease; K52.9 Noninfective gastroenteritis and colitis, unspecified; E03.9 Hypothyroidism, unspecified; K56.7 Ileus, unspecified; E86.0 Dehydration; K21.9 Gastro-esophageal reflux disease without esophagitis; Q76.0 Spina bifida occulta; G47.33 Obstructive sleep apnea (adult) (pediatric); D45 Polycythemia vera; N18.30 Chronic kidney disease, stage 3 unspecified; E86.9 Volume depletion, unspecified; E86.1 Hypovolemia; Z91.048 Other nonmedicinal substance allergy status; Z90.49 Acquired absence of other specified parts of digestive tract; Z98.890 Other specified postprocedural states; Z79.899 Other long term (current) drug therapy
CPT/HCPCS: 36415; 74177; 74250; 80048; 80053; 81001; 83690; 85025; 85027; 96361; 96374-59; 96375; 96376; 99285-25; A9270; G0378; J0360; J1170; J1650; J1885; J2270; J2405; J3010; J7030; J7040; J7120; Q9967